=== PATIENT | female | born 1935 | race Caucasian/White ===

== ENCOUNTER 2016-06-13 07:06 | Inpatient (IN) | payer MEDICARE, OTHER ==
[~2016-06-13] VITALS: Ht 170.2 cm; Wt 95.3 kg
[2016-06-13] MEDS ORDERED: NITROGLYCERIN PACKET 1 GM PACKET ONE (07:25)
[2016-06-13] MEDS ORDERED: NITROGLYCERIN PACKET 1 GM PACKET TD ONE (07:30)
[2016-06-13 08:35] LABS: BASOPHILS % (AUTO) 0.3 % (0.0-2.0); DIFF TOTAL % 100 %; EOSINOPHILS # (AUTO) 0.2 /CMM (0.0-0.7); EOSINOPHILS % (AUTO) 1.4 % (0.0-6.0); HEMATOCRIT 32 % (33-45); HEMOGLOBIN 10.7 g/dL (11.5-14.8); LYMPHOCYTES % (AUTO) 30.6 % (20.0-44.0); MEAN CORPUSCULAR HEMOGLOBIN 33 PG (26.0-33.0); MEAN CORPUSCULAR HGB CONC 34 g/dl (31.0-36.0); MEAN CORPUSCULAR VOLUME 98 fL (82-100); MONOCYTES % (AUTO) 7.4 % (2.0-12.0); NEUTROPHILS # (AUTO) 7.8 /CMM (1.8-8.9); NEUTROPHILS % (AUTO) 60.3 % (43.0-81.0); PLATELET COUNT (AUTO) 175 /CMM (150-450); RED BLOOD CELL COUNT(AUTO) 3.28 MIL/uL (4.0-5.2)
[2016-06-13 08:44] LABS: CALCIUM, SERUM 9.9 mg/dL (8.5-10.1); CREATININE 1.3 mg/dL (0.6-1.3); POTASSIUM 4.5 mmol/L (3.5-5.1)
[2016-06-13 08:52] LABS: INR 1.01 (0.87-1.13); PROTHROMBIN TIME 10.9 SECS (9.5-12.7)
[2016-06-13 08:54] LABS: TROPONIN I 0.092 ng/mL (0.00-0.056)
[2016-06-13] MEDS ORDERED: LINA145C PO (09:45)
[2016-06-13] MEDS ORDERED: DILT240T12 PO (09:45)
[2016-06-13] MEDS ORDERED: ATOR40TA PO (09:45)
[2016-06-13] MEDS ORDERED: LORA1TAB82 PO (09:45)
[2016-06-13] MEDS ORDERED: ESOM40CA PO (09:45)
[2016-06-13] MEDS ORDERED: SITA50TA PO (09:45)
[2016-06-13] MEDS ORDERED: VALS160T24 PO (09:45)
[2016-06-13] MEDS ORDERED: ISOS5TAB3 PO (09:45)
[2016-06-13] MEDS ORDERED: NATE120T6 PO (09:45)
[2016-06-13] MEDS ORDERED: FOLI1TAB16 PO (09:45)
[2016-06-13] MEDS ORDERED: ONDANSETRON HCL/PF 4 MG/2 ML VIAL IVP PRN (10:00)
[2016-06-13] MEDS ORDERED: MAG HYDROX/AL HYDROX/SIMETH 30 ML UDC PO PRN (10:00)
[2016-06-13] MEDS ORDERED: HYDROCODONE/APAP 5/325MG 1 EACH TABLET PO PRN (10:00)
[2016-06-13] MEDS ORDERED: MAGNESIUM HYDROXIDE 30 ML UDC PO PRN (10:00)
[2016-06-13] MEDS ORDERED: ZOLPIDEM TARTRATE 5 MG TABLET PO PRN (10:00)
[2016-06-13] MEDS ORDERED: Z GUARD REMEDY 2 OZ OINT TP PRN (10:00)
[2016-06-13] MEDS ORDERED: MORPHINE SULFATE INJ 2 MG/ML DISP.SYRIN IV PRN (10:00)
[2016-06-13 10:13] LABS: ALBUMIN 3.8 g/dL (3.4-5.0); BILIRUBIN,DIRECT 0.1 mg/dL (0.0-0.2); BILIRUBIN,TOTAL 0.4 mg/dL (0.2-1.0); INDIRECT BILIRUBIN 0.3 mg/dL (0.0-1.1); TOTAL PROTEIN, SERUM 8.8 g/dL (6.4-8.2)
[2016-06-13 11:00] VITALS: BP 155/73
[2016-06-13] MEDS ORDERED: DEXTROSE 50%-WATER 50 ML DISP.SYRIN IV PRN (18:30)
[2016-06-13 20:00] VITALS: BP 129/53
[2016-06-13 20:17] VITALS: BP 129/65
[2016-06-13] MEDS ORDERED: ASPIRIN 81 MG TAB.CHEW PO ONE (21:30)
[2016-06-13] MEDS ORDERED: ISOSORBIDE DINITRATE (5MG) 5 MG TABLET PO PRN (22:00)
[2016-06-13] MEDS: BLOOD SUGAR DIAGNOSTIC 1 EACH STRIP IN SCH (22:06)
[2016-06-13] MEDS ORDERED: ATORVASTATIN 40 MG TABLET ONE (22:13)
[2016-06-13] MEDS ORDERED: ASPIRIN 81 MG TAB.CHEW ONE (22:14)
[2016-06-13] MEDS ORDERED: ENOXAPARIN SODIUM 100 MG/ML DISP.SYRIN SQ ONE (22:14)
[2016-06-13] MEDS ORDERED: METOPROLOL TARTRATE 50 MG TABLET ONE (22:14)
[2016-06-13] MEDS: METOPROLOL TARTRATE 50 MG TABLET PO SCH (22:17)
[2016-06-13] MEDS: ATORVASTATIN 40 MG TABLET PO SCH (22:17)
[2016-06-13] MEDS: ENOXAPARIN SODIUM 100 MG/ML DISP.SYRIN SQ SCH (22:18)
[2016-06-13 23:51] VITALS: BP 116/54
[2016-06-14 04:26] VITALS: BP 142/72
[2016-06-14] MEDS: BLOOD SUGAR DIAGNOSTIC 1 EACH STRIP IN SCH ×4 (06:56→22:43)
[2016-06-14 07:24] LABS: CALCIUM, SERUM 9.2 mg/dL (8.5-10.1); CREATININE 1.3 mg/dL (0.6-1.3); PHOSPHORUS 3.5 mg/dL (2.5-4.9); POTASSIUM 4.2 mmol/L (3.5-5.1)
[2016-06-14 07:27] LABS: BASOPHILS # (AUTO) 0.1 /CMM (0.0-0.2); BASOPHILS % (AUTO) 0.5 % (0.0-2.0); DIFF TOTAL % 100 %; EOSINOPHILS # (AUTO) 0.1 /CMM (0.0-0.7); EOSINOPHILS % (AUTO) 1.1 % (0.0-6.0); HEMATOCRIT 30 % (33-45); HEMOGLOBIN 10.1 g/dL (11.5-14.8); LYMPHOCYTES # (AUTO) 5.3 /CMM (0.8-4.8); LYMPHOCYTES % (AUTO) 42.4 % (20.0-44.0); MEAN CORPUSCULAR HEMOGLOBIN 33 PG (26.0-33.0); MEAN CORPUSCULAR HGB CONC 34 g/dl (31.0-36.0); MEAN CORPUSCULAR VOLUME 97 fL (82-100); MONOCYTES # (AUTO) 1.1 /CMM (0.1-1.30); MONOCYTES % (AUTO) 8.5 % (2.0-12.0); NEUTROPHILS # (AUTO) 5.9 /CMM (1.8-8.9); NEUTROPHILS % (AUTO) 47.5 % (43.0-81.0); PLATELET COUNT (AUTO) 156 /CMM (150-450); RED BLOOD CELL COUNT(AUTO) 3.08 MIL/uL (4.0-5.2); WHITE BLOOD COUNT (AUTO) 12.4 K/uL (4.3-11.0)
[2016-06-14 08:00] VITALS: BP 151/86
[2016-06-14] MEDS ORDERED: ISOSORBIDE DINITRATE (5MG) 5 MG TABLET PO PRN (08:00)
[2016-06-14] MEDS: ASPIRIN 325 MG TABLET PO SCH (08:17)
[2016-06-14] MEDS: FOLIC ACID 1 MG TABLET PO SCH (08:17)
[2016-06-14] MEDS: PANTOPRAZOLE 40 MG TABLET.DR PO SCH (08:17)
[2016-06-14] MEDS: METOPROLOL TARTRATE 50 MG TABLET PO SCH ×2 (08:17→21:00)
[2016-06-14] MEDS: ENOXAPARIN SODIUM 100 MG/ML DISP.SYRIN SQ SCH ×2 (08:18→21:29)
[2016-06-14] MEDS: ACETAMINOPHEN 325 MG TABLET PO PRN (15:37)
[2016-06-14 16:00] VITALS: BP 146/74
[2016-06-14] MEDS ORDERED: NITROGLYCERIN 0.4 MG/TAB BOTTLE SL PRN (16:00)
[2016-06-14] MEDS: TRAMADOL HCL 50 MG TABLET PO PRN (16:00)
[2016-06-14] MEDS: NITROGLYCERIN 0.4 MG/TAB BOTTLE SL PRN ×2 (16:43→18:08)
[2016-06-14] MEDS: INSULIN REGULAR, HUMAN 100 UNIT/ML 3 ML VIAL SQ PRN (17:37)
[2016-06-14] MEDS: ISOSORBIDE MONONITRATE (30MG) 30 MG TAB.SR.24H PO SCH (18:41)
[2016-06-14 20:00] VITALS: BP 99/55
[2016-06-14 20:36] VITALS: BP 99/55
[2016-06-14] MEDS: ATORVASTATIN 40 MG TABLET PO SCH (21:28)
[2016-06-14] MEDS ORDERED: DILTIAZEM HCL CD 240 MG PO SCH (22:00)
[2016-06-15] MEDS: NITROGLYCERIN 0.4 MG/TAB BOTTLE SL PRN ×2 (03:32→19:43)
[2016-06-15] MEDS: TRAMADOL HCL 50 MG TABLET PO PRN (03:36)
[2016-06-15] MEDS: LORAZEPAM 1 MG TABLET PO PRN (05:17)
[2016-06-15] MEDS: BLOOD SUGAR DIAGNOSTIC 1 EACH STRIP IN SCH ×4 (06:00→21:33)
[2016-06-15] MEDS: INSULIN REGULAR, HUMAN 100 UNIT/ML 3 ML VIAL SQ PRN (06:07)
[2016-06-15 06:39] LABS: BASOPHILS % (AUTO) 0.4 % (0.0-2.0); DIFF TOTAL % 100 %; EOSINOPHILS # (AUTO) 0.1 /CMM (0.0-0.7); EOSINOPHILS % (AUTO) 0.9 % (0.0-6.0); HEMATOCRIT 29 % (33-45); HEMOGLOBIN 9.8 g/dL (11.5-14.8); LYMPHOCYTES # (AUTO) 3.9 /CMM (0.8-4.8); LYMPHOCYTES % (AUTO) 35.3 % (20.0-44.0); MEAN CORPUSCULAR HEMOGLOBIN 33 PG (26.0-33.0); MEAN CORPUSCULAR HGB CONC 34 g/dl (31.0-36.0); MEAN CORPUSCULAR VOLUME 98 fL (82-100); MONOCYTES % (AUTO) 8.6 % (2.0-12.0); NEUTROPHILS # (AUTO) 6.1 /CMM (1.8-8.9); NEUTROPHILS % (AUTO) 54.8 % (43.0-81.0); PLATELET COUNT (AUTO) 159 /CMM (150-450); RED BLOOD CELL COUNT(AUTO) 2.96 MIL/uL (4.0-5.2); WHITE BLOOD COUNT (AUTO) 11.1 K/uL (4.3-11.0)
[2016-06-15 06:53] LABS: CREATININE 1.4 mg/dL (0.6-1.3); POTASSIUM 4.5 mmol/L (3.5-5.1)
[2016-06-15 08:00] VITALS: BP 133/58
[2016-06-15] MEDS: ENOXAPARIN SODIUM 100 MG/ML DISP.SYRIN SQ SCH (08:59)
[2016-06-15] MEDS: PANTOPRAZOLE 40 MG TABLET.DR PO SCH (08:59)
[2016-06-15] MEDS: ASPIRIN 325 MG TABLET PO SCH (08:59)
[2016-06-15] MEDS ORDERED: ATORVASTATIN 40 MG TABLET PO SCH (09:00)
[2016-06-15] MEDS: FOLIC ACID 1 MG TABLET PO SCH (09:00)
[2016-06-15] MEDS: METOPROLOL TARTRATE 50 MG TABLET PO SCH ×2 (09:01→21:20)
[2016-06-15 09:16] VITALS: BP 133/58
[2016-06-15] MEDS: ISOSORBIDE MONONITRATE (30MG) 30 MG TAB.SR.24H PO SCH (12:19)
[2016-06-15] MEDS: METHOCARBAMOL (750MG) 750 MG TABLET PO PRN (18:28)
[2016-06-15 20:00] VITALS: BP 125/54
[2016-06-15] MEDS: ATORVASTATIN 40 MG TABLET PO SCH (21:25)
[2016-06-16] MEDS: LORAZEPAM 1 MG TABLET PO PRN ×2 (00:02→20:32)
[2016-06-16] MEDS: BLOOD SUGAR DIAGNOSTIC 1 EACH STRIP IN SCH ×4 (06:10→23:25)
[2016-06-16 06:45] LABS: BASOPHILS % (AUTO) 0.3 % (0.0-2.0); DIFF TOTAL % 100 %; EOSINOPHILS # (AUTO) 0.1 /CMM (0.0-0.7); EOSINOPHILS % (AUTO) 0.4 % (0.0-6.0); HEMATOCRIT 29 % (33-45); HEMOGLOBIN 9.7 g/dL (11.5-14.8); LYMPHOCYTES # (AUTO) 4.1 /CMM (0.8-4.8); LYMPHOCYTES % (AUTO) 30.6 % (20.0-44.0); MEAN CORPUSCULAR HEMOGLOBIN 33 PG (26.0-33.0); MEAN CORPUSCULAR HGB CONC 34 g/dl (31.0-36.0); MEAN CORPUSCULAR VOLUME 98 fL (82-100); MONOCYTES # (AUTO) 1.3 /CMM (0.1-1.30); MONOCYTES % (AUTO) 9.8 % (2.0-12.0); NEUTROPHILS # (AUTO) 7.9 /CMM (1.8-8.9); NEUTROPHILS % (AUTO) 58.9 % (43.0-81.0); PLATELET COUNT (AUTO) 141 /CMM (150-450); RED BLOOD CELL COUNT(AUTO) 2.94 MIL/uL (4.0-5.2); WHITE BLOOD COUNT (AUTO) 13.4 K/uL (4.3-11.0)
[2016-06-16 07:02] LABS: CREATININE 1.3 mg/dL (0.6-1.3); POTASSIUM 4.3 mmol/L (3.5-5.1)
[2016-06-16 07:33] LABS: TROPONIN I 5.793 ng/mL (0.00-0.056)
[2016-06-16 08:00] VITALS: BP 122/65
[2016-06-16] MEDS: METOPROLOL TARTRATE 50 MG TABLET PO SCH ×2 (09:22→23:27)
[2016-06-16] MEDS: FOLIC ACID 1 MG TABLET PO SCH (09:23)
[2016-06-16] MEDS: PANTOPRAZOLE 40 MG TABLET.DR PO SCH (09:23)
[2016-06-16] MEDS: ASPIRIN 325 MG TABLET PO SCH (09:23)
[2016-06-16] MEDS: ENOXAPARIN SODIUM 40 MG/0.4 ML DISP.SYRIN SQ SCH (09:24)
[2016-06-16] MEDS: ISOSORBIDE MONONITRATE (30MG) 30 MG TAB.SR.24H PO SCH (10:53)
[2016-06-16] MEDS ORDERED: TICAGRELOR 90 MG TABLET PO ONE (15:30)
[2016-06-16 16:00] VITALS: BP 95/34
[2016-06-16] MEDS ORDERED: LINZESS PO PRN (17:30)
[2016-06-16 20:00] VITALS: BP 121/47
[2016-06-16] MEDS: ATORVASTATIN 40 MG TABLET PO SCH (23:22)
[2016-06-17] VITALS (9 sets, daily range): BP systolic 121–153; BP diastolic 62–104
[2016-06-17 05:31] LABS: BASOPHILS % (AUTO) 0.3 % (0.0-2.0); DIFF TOTAL % 100 %; EOSINOPHILS # (AUTO) 0.1 /CMM (0.0-0.7); EOSINOPHILS % (AUTO) 0.4 % (0.0-6.0); HEMATOCRIT 27 % (33-45); HEMOGLOBIN 9.3 g/dL (11.5-14.8); MEAN CORPUSCULAR HEMOGLOBIN 33 PG (26.0-33.0); MEAN CORPUSCULAR HGB CONC 34 g/dl (31.0-36.0); MEAN CORPUSCULAR VOLUME 97 fL (82-100); MONOCYTES # (AUTO) 1.4 /CMM (0.1-1.30); MONOCYTES % (AUTO) 10.5 % (2.0-12.0); NEUTROPHILS # (AUTO) 7.5 /CMM (1.8-8.9); NEUTROPHILS % (AUTO) 57.8 % (43.0-81.0); PLATELET COUNT (AUTO) 140 /CMM (150-450); RED BLOOD CELL COUNT(AUTO) 2.84 MIL/uL (4.0-5.2)
[2016-06-17 05:42] LABS: CALCIUM, SERUM 9.1 mg/dL (8.5-10.1); CREATININE 1.4 mg/dL (0.6-1.3); POTASSIUM 4.2 mmol/L (3.5-5.1)
[2016-06-17 05:50] LABS: TROPONIN I 5.992 ng/mL (0.00-0.056)
[2016-06-17] MEDS: BLOOD SUGAR DIAGNOSTIC 1 EACH STRIP IN SCH ×4 (07:03→21:33)
[2016-06-17] MEDS: ASPIRIN EC 81 MG TABLET.DR PO SCH (08:35)
[2016-06-17] MEDS: PANTOPRAZOLE 40 MG TABLET.DR PO SCH (08:36)
[2016-06-17] MEDS: FOLIC ACID 1 MG TABLET PO SCH (08:36)
[2016-06-17] MEDS: ENOXAPARIN SODIUM 40 MG/0.4 ML DISP.SYRIN SQ SCH (08:38)
[2016-06-17] MEDS: TRAMADOL HCL 50 MG TABLET PO PRN (08:39)
[2016-06-17] MEDS: NITROGLYCERIN 0.4 MG/TAB BOTTLE SL PRN ×4 (08:42→16:36)
[2016-06-17] MEDS: TICAGRELOR 90 MG TABLET PO SCH ×2 (09:12→16:36)
[2016-06-17] MEDS: ISOSORBIDE MONONITRATE (30MG) 30 MG TAB.SR.24H PO SCH (09:41)
[2016-06-17] MEDS: METOPROLOL TARTRATE 50 MG TABLET PO SCH ×2 (09:42→21:28)
[2016-06-17] MEDS: INSULIN REGULAR, HUMAN 100 UNIT/ML 3 ML VIAL SQ PRN ×2 (11:40→17:07)
[2016-06-17] MEDS: METHOCARBAMOL (750MG) 750 MG TABLET PO PRN (16:36)
[2016-06-17] MEDS: ATORVASTATIN 40 MG TABLET PO SCH (21:29)
[2016-06-18] VITALS (8 sets, daily range): BP systolic 117–137; BP diastolic 31–74
[2016-06-18] MEDS: LORAZEPAM 1 MG TABLET PO PRN ×2 (00:54→18:37)
[2016-06-18] MEDS: NITROGLYCERIN 0.4 MG/TAB BOTTLE SL PRN ×2 (00:55→16:18)
[2016-06-18] MEDS: BLOOD SUGAR DIAGNOSTIC 1 EACH STRIP IN SCH ×4 (07:30→22:05)
[2016-06-18 07:48] LABS: BASOPHILS # (AUTO) 0.1 /CMM (0.0-0.2); BASOPHILS % (AUTO) 0.6 % (0.0-2.0); DIFF TOTAL % 100 %; EOSINOPHILS # (AUTO) 0.1 /CMM (0.0-0.7); EOSINOPHILS % (AUTO) 0.6 % (0.0-6.0); HEMATOCRIT 27 % (33-45); HEMOGLOBIN 9.3 g/dL (11.5-14.8); LYMPHOCYTES # (AUTO) 4.2 /CMM (0.8-4.8); LYMPHOCYTES % (AUTO) 34.2 % (20.0-44.0); MEAN CORPUSCULAR HEMOGLOBIN 33 PG (26.0-33.0); MEAN CORPUSCULAR HGB CONC 34 g/dl (31.0-36.0); MEAN CORPUSCULAR VOLUME 96 fL (82-100); MONOCYTES # (AUTO) 1.3 /CMM (0.1-1.30); MONOCYTES % (AUTO) 10.3 % (2.0-12.0); NEUTROPHILS # (AUTO) 6.6 /CMM (1.8-8.9); NEUTROPHILS % (AUTO) 54.3 % (43.0-81.0); PLATELET COUNT (AUTO) 135 /CMM (150-450); RED BLOOD CELL COUNT(AUTO) 2.83 MIL/uL (4.0-5.2); WHITE BLOOD COUNT (AUTO) 12.2 K/uL (4.3-11.0)
[2016-06-18 08:10] LABS: CALCIUM, SERUM 8.8 mg/dL (8.5-10.1); CREATININE 1.4 mg/dL (0.6-1.3)
[2016-06-18] MEDS: TICAGRELOR 90 MG TABLET PO SCH ×2 (08:40→16:19)
[2016-06-18] MEDS: ISOSORBIDE MONONITRATE (30MG) 30 MG TAB.SR.24H PO SCH (08:40)
[2016-06-18] MEDS: FOLIC ACID 1 MG TABLET PO SCH (08:41)
[2016-06-18] MEDS: ASPIRIN EC 81 MG TABLET.DR PO SCH (08:41)
[2016-06-18] MEDS: METOPROLOL TARTRATE 50 MG TABLET PO SCH ×2 (08:41→21:00)
[2016-06-18] MEDS: PANTOPRAZOLE 40 MG TABLET.DR PO SCH (08:41)
[2016-06-18] MEDS: ENOXAPARIN SODIUM 40 MG/0.4 ML DISP.SYRIN SQ SCH (08:52)
[2016-06-18] MEDS ORDERED: PETROLATUM,WHITE PACKET 5 GM PACKET TP PRN (09:00)
[2016-06-18] MEDS: METHOCARBAMOL (750MG) 750 MG TABLET PO PRN ×2 (09:26→16:17)
[2016-06-18] MEDS: INSULIN REGULAR, HUMAN 100 UNIT/ML 3 ML VIAL SQ PRN ×2 (11:37→17:10)
[2016-06-18] MEDS: ATORVASTATIN 40 MG TABLET PO SCH (22:03)
[2016-06-19] MEDS: BLOOD SUGAR DIAGNOSTIC 1 EACH STRIP IN SCH ×4 (05:38→22:03)
[2016-06-19] MEDS: NITROGLYCERIN 0.4 MG/TAB BOTTLE SL PRN ×2 (05:57→09:00)
[2016-06-19] MEDS: METHOCARBAMOL (750MG) 750 MG TABLET PO PRN ×3 (06:04→18:54)
[2016-06-19 06:37] LABS: BASOPHILS # (AUTO) 0.1 /CMM (0.0-0.2); BASOPHILS % (AUTO) 0.5 % (0.0-2.0); DIFF TOTAL % 100 %; EOSINOPHILS # (AUTO) 0.1 /CMM (0.0-0.7); EOSINOPHILS % (AUTO) 0.8 % (0.0-6.0); HEMATOCRIT 28 % (33-45); HEMOGLOBIN 9.4 g/dL (11.5-14.8); LYMPHOCYTES # (AUTO) 4.8 /CMM (0.8-4.8); LYMPHOCYTES % (AUTO) 36.4 % (20.0-44.0); MEAN CORPUSCULAR HEMOGLOBIN 33 PG (26.0-33.0); MEAN CORPUSCULAR HGB CONC 34 g/dl (31.0-36.0); MEAN CORPUSCULAR VOLUME 97 fL (82-100); MONOCYTES # (AUTO) 1.2 /CMM (0.1-1.30); MONOCYTES % (AUTO) 9.3 % (2.0-12.0); PLATELET COUNT (AUTO) 142 /CMM (150-450); RED BLOOD CELL COUNT(AUTO) 2.84 MIL/uL (4.0-5.2); WHITE BLOOD COUNT (AUTO) 13.2 K/uL (4.3-11.0)
[2016-06-19 07:12] LABS: CREATININE 1.3 mg/dL (0.6-1.3); POTASSIUM 3.9 mmol/L (3.5-5.1)
[2016-06-19 07:32] LABS: TROPONIN I 3.744 ng/mL (0.00-0.056)
[2016-06-19 07:55] VITALS: BP 136/54
[2016-06-19 08:00] VITALS: BP 136/54
[2016-06-19] MEDS: TICAGRELOR 90 MG TABLET PO SCH ×2 (08:47→17:11)
[2016-06-19] MEDS: FOLIC ACID 1 MG TABLET PO SCH (08:47)
[2016-06-19] MEDS: PANTOPRAZOLE 40 MG TABLET.DR PO SCH (08:47)
[2016-06-19] MEDS: ASPIRIN EC 81 MG TABLET.DR PO SCH (08:47)
[2016-06-19] MEDS: ISOSORBIDE MONONITRATE (30MG) 30 MG TAB.SR.24H PO SCH (08:59)
[2016-06-19] MEDS: METOPROLOL TARTRATE 50 MG TABLET PO SCH ×2 (09:00→21:53)
[2016-06-19] MEDS: ENOXAPARIN SODIUM 40 MG/0.4 ML DISP.SYRIN SQ SCH (09:01)
[2016-06-19] MEDS: INSULIN REGULAR, HUMAN 100 UNIT/ML 3 ML VIAL SQ PRN ×2 (11:45→17:43)
[2016-06-19 16:00] VITALS: BP 128/50
[2016-06-19 20:00] VITALS: BP 148/54
[2016-06-19] MEDS: LORAZEPAM 1 MG TABLET PO PRN (21:51)
[2016-06-19] MEDS: ATORVASTATIN 40 MG TABLET PO SCH (21:51)
[2016-06-20] MEDS: BLOOD SUGAR DIAGNOSTIC 1 EACH STRIP IN SCH ×4 (05:56→21:50)
[2016-06-20 06:27] LABS: CREATININE 1.4 mg/dL (0.6-1.3)
[2016-06-20 06:38] LABS: BASOPHILS % (AUTO) 0.3 % (0.0-2.0); DIFF TOTAL % 100 %; EOSINOPHILS # (AUTO) 0.1 /CMM (0.0-0.7); EOSINOPHILS % (AUTO) 0.6 % (0.0-6.0); HEMATOCRIT 28 % (33-45); HEMOGLOBIN 9.4 g/dL (11.5-14.8); LYMPHOCYTES # (AUTO) 4.7 /CMM (0.8-4.8); LYMPHOCYTES % (AUTO) 34.3 % (20.0-44.0); MEAN CORPUSCULAR HEMOGLOBIN 33 PG (26.0-33.0); MEAN CORPUSCULAR HGB CONC 34 g/dl (31.0-36.0); MEAN CORPUSCULAR VOLUME 98 fL (82-100); MONOCYTES % (AUTO) 7.6 % (2.0-12.0); NEUTROPHILS # (AUTO) 7.9 /CMM (1.8-8.9); NEUTROPHILS % (AUTO) 57.2 % (43.0-81.0); PLATELET COUNT (AUTO) 149 /CMM (150-450); RED BLOOD CELL COUNT(AUTO) 2.84 MIL/uL (4.0-5.2); WHITE BLOOD COUNT (AUTO) 13.8 K/uL (4.3-11.0)
[2016-06-20 06:46] LABS: TROPONIN I 2.185 ng/mL (0.00-0.056)
[2016-06-20] MEDS: METHOCARBAMOL (750MG) 750 MG TABLET PO PRN ×3 (06:46→18:22)
[2016-06-20] MEDS: NITROGLYCERIN 0.4 MG/TAB BOTTLE SL PRN ×3 (06:48→15:01)
[2016-06-20 08:00] VITALS: BP_SYST 121; BP_DIAS 60; BP_DIAS 65
[2016-06-20] MEDS: METOPROLOL TARTRATE 50 MG TABLET PO SCH ×2 (08:13→21:00)
[2016-06-20] MEDS: FOLIC ACID 1 MG TABLET PO SCH (08:13)
[2016-06-20] MEDS: PANTOPRAZOLE 40 MG TABLET.DR PO SCH (08:13)
[2016-06-20] MEDS: ISOSORBIDE MONONITRATE (30MG) 30 MG TAB.SR.24H PO SCH (08:13)
[2016-06-20] MEDS: ASPIRIN EC 81 MG TABLET.DR PO SCH (08:13)
[2016-06-20] MEDS: TICAGRELOR 90 MG TABLET PO SCH ×2 (08:13→17:07)
[2016-06-20] MEDS: ENOXAPARIN SODIUM 40 MG/0.4 ML DISP.SYRIN SQ SCH (08:27)
[2016-06-20 09:01] VITALS: BP 95/43
[2016-06-20] MEDS ORDERED: IV NS 0.9% 1,000 ML IV PRN (10:31)
[2016-06-20 15:06] VITALS: BP 104/51
[2016-06-20] MEDS: ACETAMINOPHEN 325 MG TABLET PO PRN (15:12)
[2016-06-20 16:00] VITALS: BP 118/70
[2016-06-20] MEDS: INSULIN REGULAR, HUMAN 100 UNIT/ML 3 ML VIAL SQ PRN ×2 (17:25→21:55)
[2016-06-20 20:35] VITALS: BP 102/50
[2016-06-20] MEDS: ATORVASTATIN 40 MG TABLET PO SCH (21:51)
[2016-06-20] MEDS: LORAZEPAM 1 MG TABLET PO PRN (21:51)
[2016-06-20 22:00] VITALS: BP 104/58
[2016-06-21 00:09] VITALS: BP 127/54
[2016-06-21] MEDS: METHOCARBAMOL (750MG) 750 MG TABLET PO PRN ×3 (03:55→16:11)
[2016-06-21] MEDS: NITROGLYCERIN 0.4 MG/TAB BOTTLE SL PRN ×6 (04:02→08:57)
[2016-06-21 04:21] VITALS: BP 118/57
[2016-06-21] MEDS: BLOOD SUGAR DIAGNOSTIC 1 EACH STRIP IN SCH ×3 (06:42→17:19)
[2016-06-21 06:45] VITALS: BP 133/54
[2016-06-21] MEDS: PANTOPRAZOLE 40 MG TABLET.DR PO SCH (07:30)
[2016-06-21 08:00] VITALS: BP 131/54
[2016-06-21] MEDS: ASPIRIN EC 81 MG TABLET.DR PO SCH (08:40)
[2016-06-21] MEDS: FOLIC ACID 1 MG TABLET PO SCH (08:40)
[2016-06-21] MEDS: ISOSORBIDE MONONITRATE (30MG) 30 MG TAB.SR.24H PO SCH (08:41)
[2016-06-21] MEDS: TICAGRELOR 90 MG TABLET PO SCH ×2 (08:42→16:53)
[2016-06-21] MEDS: METOPROLOL TARTRATE 50 MG TABLET PO SCH (08:42)
[2016-06-21] MEDS: ENOXAPARIN SODIUM 40 MG/0.4 ML DISP.SYRIN SQ SCH (09:23)
[2016-06-21 12:00] VITALS: BP 129/76
[2016-06-21 16:00] VITALS: BP 130/67
== END 2016-06-21 17:35 | disposition short-term general hospital (02) | DRG 281 ==
LOC: ER 07:35 → TELE 11:10 → MED 11:59 → TELE 12:00 → MED 06-15 06:38 → TELE 06-16 08:49 → MED 06-18 09:27 → TELE 06-20 17:37
PROVIDERS: ADMIT Internal Medicine; ATTEND Internal Medicine
DX: I21.4 Non-ST elevation (NSTEMI) myocardial infarction (principal); I50.32 Chronic diastolic (congestive) heart failure; I13.0 Hypertensive heart and chronic kidney disease with heart failure and stage 1 through stage 4 chronic kidney disease, or unspecified chronic kidney disease; Q60.0 Renal agenesis, unilateral; E11.22 Type 2 diabetes mellitus with diabetic chronic kidney disease; I48.0 Paroxysmal atrial fibrillation; D63.8 Anemia in other chronic diseases classified elsewhere; D72.829 Elevated white blood cell count, unspecified; E66.9 Obesity, unspecified; E78.5 Hyperlipidemia, unspecified; I25.110 Atherosclerotic heart disease of native coronary artery with unstable angina pectoris; I25.2 Old myocardial infarction; N18.3 Chronic kidney disease, stage 3 (moderate); K21.9 Gastro-esophageal reflux disease without esophagitis; Z79.02 Long term (current) use of antithrombotics/antiplatelets; Z98.61 Coronary angioplasty status; Z68.32 Body mass index [BMI] 32.0-32.9, adult; Z88.8 Allergy status to other drugs, medicaments and biological substances
CPT/HCPCS: 36415; 71010-TC; 80048-TC; 80061-TC; 80076-TC; 82150-TC; 82962-TC; 83735-TC; 84100-TC; 84484-TC; 85025-TC; 85730-TC; 87040-TC; 87081-TC; 93307-TC; 94799-TC; 97001-TC; A4606; J1650; J1815; Z7610

== ENCOUNTER 2016-10-05 06:44 | Emergency (ER) | payer MEDICARE, OTHER ==
[~2016-10-05] VITALS: Ht 167.6 cm; Wt 90.7 kg
[~2016-10-05 06:44] MED LIST: ATOR40TA PO; DILT240T12 PO; ESOM40CA PO; FOLI1TAB16 PO; ISOS5TAB3 PO; LINA145C PO; LORA1TAB82 PO; NATE120T6 PO; SITA50TA PO; VALS160T24 PO
--- NOTE | 2016-10-05 07:00 | NUR ---
81 yo female bb ra from home. pt is alert x 3, c/o glf. pt states she was showering when she fell, thinks she blacked out for a minute. ems was called by son, skin warm and dry, rr even and unlabored. pt is in moderate distress. noted lac on forehead. tetanous not up to date, awaiting orders from provider, will conitnue to monitor
[2016-10-05] MEDS ORDERED: ACETAMINOPHEN ES 500 MG TABLET ONE (07:08)
--- NOTE | 2016-10-05 07:08 | NUR ---
20g left hand iv started
[2016-10-05] MEDS ORDERED: TDAP [DIPH/PERTUSSIS/TET] 0.5 ML VIAL IM ONE ×2 (07:09→07:30)
--- NOTE | 2016-10-05 07:18 | NUR ---
PT REFUSED MEDICATION
[2016-10-05] MEDS: LIDOCAINE 1%-EPI 1:100,000 50 ML VIAL IJ ONE ×2 (07:20→07:43)
[2016-10-05] MEDS ORDERED: ACETAMINOPHEN ES 500 MG TABLET PO ONE (07:30)
[2016-10-05] MEDS ORDERED: MORPHINE SULFATE INJ 4 MG/ML DISP.SYRIN ONE (08:48)
[2016-10-05] MEDS ORDERED: oxyCODONE IR immediate release 5 MG CAPSULE PO ONE (09:00)
[2016-10-05] MEDS ORDERED: MORPHINE SULFATE INJ 2 MG/ML DISP.SYRIN IM ONE (09:00)
[2016-10-05] MEDS ORDERED: TRAMADOL HCL 50 MG TABLET ONE (09:05)
[2016-10-05] MEDS ORDERED: TRAMADOL HCL 50 MG TABLET PO ONE (09:30)
[2016-10-05 09:31] VITALS: BP 130/80
--- NOTE | 2016-10-05 09:31 | NUR ---
Patient discharged to home in stable condition. Written and verbal after care instructions given. Patient verbalizes understanding of instruction.
== END 2016-10-05 09:35 | disposition home or self-care (01) ==
LOC: ER 06:46
DX: S42.291A Other displaced fracture of upper end of right humerus, initial encounter for closed fracture (principal); S01.81XA Laceration without foreign body of other part of head, initial encounter; D64.9 Anemia, unspecified; E11.9 Type 2 diabetes mellitus without complications; I10 Essential (primary) hypertension; F41.9 Anxiety disorder, unspecified; I48.91 Unspecified atrial fibrillation; Z95.5 Presence of coronary angioplasty implant and graft; Z88.8 Allergy status to other drugs, medicaments and biological substances; W18.2XXA Fall in (into) shower or empty bathtub, initial encounter; Y93.E1 Activity, personal bathing and showering; Y92.091 Bathroom in other non-institutional residence as the place of occurrence of the external cause; Y99.8 Other external cause status
CPT/HCPCS: 70450-TC; 72125-TC; 73030-TC; 90715; A4606; A6402; A6403; J2270; J3490; Z7610

== ENCOUNTER 2016-12-07 19:49 | Inpatient (IN) | payer MEDICARE, OTHER ==
[~2016-12-07] VITALS: Ht 152.4 cm; Wt 78.9 kg
--- NOTE | 2016-12-07 20:12 | NUR ---
BIB DAUGHTER, C/O SOB X 2 DAYS WITH PROGRESSIVE NOCTORNAL DYSPNEA DENIEVE FEVER OR CHILLS; C/O BACK PAIN X 1 WEEK. PT AOX3 RR EVEN AND UNLABORED. NO SOB NOTED. PT SPEAKING IN FULL SENTENCES. NAD NOTED. NO NVD AT THIS TIME. PT GOWNED AND PLACED ON MONITOR WAITING FOR MD ORTIZ.
--- NOTE | 2016-12-07 20:17 | NUR ---
DR. THOMPSON AT BEDSIDE FOR EVAL.
--- NOTE | 2016-12-07 20:40 | NUR ---
RADIOLOGY AT BEDSIDE FOR CXR.
--- NOTE | 2016-12-07 20:44 | NUR ---
PT REFUSED IV, RISK AND BENEFITS EXPLAINED X3. PT STRONGLY REFUSED. RN ALEENA AT BEDSIDE.
--- NOTE | 2016-12-07 20:50 | NUR ---
LAB AT BEDSIDE FOR BLOOD DRAW.
[2016-12-07 21:09] LABS: CALCIUM, SERUM 8.9 mg/dL (8.5-10.1); CARBON DIOXIDE 23 mmol/L (21-32); CHLORIDE 104 mmol/L (98-107); CREATININE 1.3 mg/dL (0.6-1.3); GLUCOSE 126 mg/dL (74-106); POTASSIUM 4.3 mmol/L (3.5-5.1); SODIUM SERUM 137 mmol/L (136-145); UREA NITROGEN, BLOOD 27 mg/dL (7-18)
[2016-12-07 21:10] LABS: PROTHROMBIN TIME 10.4 SECS (9.5-12.7)
[2016-12-07 21:15] LABS: BASOPHILS % (AUTO) 0.3 % (0.0-2.0); HEMATOCRIT 24 % (33-45); HEMOGLOBIN 8.2 g/dL (11.5-14.8); LYMPHOCYTES # (AUTO) 4.9 /CMM (0.8-4.8); LYMPHOCYTES % (AUTO) 46.1 % (20.0-44.0); MEAN CORPUSCULAR HEMOGLOBIN 35 PG (26.0-33.0); MEAN CORPUSCULAR HGB CONC 34 g/dl (31.0-36.0); MEAN CORPUSCULAR VOLUME 103 fL (82-100); MONOCYTES # (AUTO) 0.8 /CMM (0.1-1.30); MONOCYTES % (AUTO) 7.2 % (2.0-12.0); NEUTROPHILS % (AUTO) 46.4 % (43.0-81.0); PLATELET COUNT (AUTO) 95 /CMM (150-450); RDW COEFFICIENT OF VARIATION 19.3 (11.5-15.0); RED BLOOD CELL COUNT(AUTO) 2.37 MIL/uL (4.0-5.2); WHITE BLOOD COUNT (AUTO) 10.7 K/uL (4.3-11.0)
[2016-12-07 21:17] LABS: TROPONIN I < 0.017 ng/mL (0.00-0.056)
[2016-12-07 21:22] LABS: ALANINE AMINOTRANSFERASE 18 U/L (12-78); ALBUMIN 3.3 g/dL (3.4-5.0); ALKALINE PHOSPHATASE 86 U/L (46-116); ASPARTATE AMINOTRANSFERASE 19 U/L (15-37); B-TYPE NATRIURETIC PEPTIDE 994 PG/ML (0-125); BILIRUBIN,DIRECT 0.2 mg/dL (0.0-0.2)
--- NOTE | 2016-12-07 21:27 | NUR ---
DR. THOMPSON AT BEDSIDE SPEAKING TO PT REGARDING POC
[2016-12-07] MEDS ORDERED: FUROSEMIDE 20 MG/2 ML VIAL IV ONE (21:30)
--- NOTE | 2016-12-07 21:49 | NUR ---
CALLED [employer] INVESTMENT MANAGER WAS PAGED.
--- NOTE | 2016-12-07 21:50 | NUR ---
DR THOMPSON ON THE PHONE WITH DR COSTA.
--- NOTE | 2016-12-07 21:54 | NUR ---
PT REFUSED IV INSERTION AND IV MEDICATION. RISK AND BENEFITS EXPLAINED X3. PT STRONGLY REFUSED. FAMILY AWARE. DR. THOMPSON AWARE
[2016-12-07 21:55] LABS: BAND % (MANUAL) 10 % (0.0-5.0); LYMPHOCYTES % (MANUAL) 46 % (16-48); MONOCYTES % (MANUAL) 5 % (0-11.0); NEUTROPHILS % (MANUAL) 39 (42-76)
--- NOTE | 2016-12-07 22:00 | NUR ---
PT ASSIGNED TO [facility] 325-1
[2016-12-07] MEDS ORDERED: FUROSEMIDE 40 MG TABLET ONE (22:05)
[2016-12-07 22:30] VITALS: BP 117/53
[2016-12-07] MEDS ORDERED: ACETAMINOPHEN 325 MG TABLET PO PRN (22:30)
[2016-12-07] MEDS ORDERED: HYDROCODONE/APAP 5/325MG 1 EACH TABLET PO PRN (22:30)
[2016-12-07] MEDS ORDERED: MAGNESIUM HYDROXIDE 30 ML UDC PO PRN (22:30)
[2016-12-07] MEDS ORDERED: LORAZEPAM 1 MG TABLET PO PRN (22:30)
[2016-12-07] MEDS ORDERED: ONDANSETRON HCL/PF 4 MG/2 ML VIAL IVP PRN (22:30)
[2016-12-07] MEDS ORDERED: FUROSEMIDE 40 MG TABLET PO ONE (22:30)
[2016-12-07] MEDS ORDERED: ISOSORBIDE DINITRATE (5MG) 5 MG TABLET PO PRN (22:30)
[2016-12-07] MEDS ORDERED: Z GUARD REMEDY 2 OZ OINT TP PRN (22:30)
[2016-12-07] MEDS ORDERED: ZOLPIDEM TARTRATE 5 MG TABLET PO PRN (22:30)
[2016-12-07] MEDS ORDERED: MAG HYDROX/AL HYDROX/SIMETH 30 ML UDC PO PRN (22:30)
--- NOTE | 2016-12-07 22:30 | NUR ---
TOE PULLER NOTES: RECEIVED PT FROM ED AT THIS TIME. PT IS A/OX 4. NO IV SITE FOR PT. AWARE. PT ACCOMPANIED WITH DAUGHTER IN LAW AT BEDSIDE. CALL LIGHT WITHIN PT'S REACH. BED KEPT IN LOW, LOCKED POSITION, AND SIDE RAILS X 2 UP. HOB ELEVATED/ HIGH DELEON'S AT ALL TIMES. WILL CONTINUE TO MONITOR PT.
--- NOTE | 2016-12-07 22:36 | NUR ---
PT TRANSFERED PER ACLS PROTOCOL.
[2016-12-07 22:40] VITALS: BP 117/53
--- NOTE | 2016-12-07 23:00 | NUR ---
PRACTICAL NURSE NOTES: DR. COSTA AT BEDSIDE ANSWERING ALL QUESTIONS/CONCERNS PT AND FAMILY MEMBER HAS. WILL CONTINUE TO MONITOR PT.
[2016-12-08] VITALS: BP 96/48
[2016-12-08] MEDS ORDERED: IPRATROPIUM NEB FS 0.5 MG/2.5 ML AMPUL.NEB NEB PRN
[2016-12-08] MEDS ORDERED: ALBUTEROL FS 2.5 MG/3 ML VIAL.NEB NEB PRN
[2016-12-08] MEDS ORDERED: predniSONE 20 MG TABLET ONE (00:23)
[2016-12-08] MEDS: predniSONE 20 MG TABLET PO SCH ×2 (00:25→09:13)
[2016-12-08] MEDS ORDERED: ALBUTEROL FS 2.5 MG/3 ML VIAL.NEB ONE (02:25)
[2016-12-08] MEDS ORDERED: IPRATROPIUM NEB FS 0.5 MG/2.5 ML AMPUL.NEB ONE (02:25)
[2016-12-08] MEDS ORDERED: ACETAMINOPHEN 325 MG TABLET ONE (02:52)
--- NOTE | 2016-12-08 02:53 | NUR ---
SILICA DRY PRESS HELPER NOTES: PT COMPLAINED OF BACK PAIN AND REQUESTED FOR ACETAMINOPHEN 650MG. WAS ADMINISTERED ACETAMINOPHEN. PT REFUSED NORCO MEDICATION. WILL CONTINUE TO MONITOR PT.
[2016-12-08 03:24] LABS: BASOPHILS % (AUTO) 0.3 % (0.0-2.0); HEMATOCRIT 24 % (33-45); HEMOGLOBIN 8.2 g/dL (11.5-14.8); LYMPHOCYTES # (AUTO) 4.3 /CMM (0.8-4.8); LYMPHOCYTES % (AUTO) 38.9 % (20.0-44.0); MEAN CORPUSCULAR HEMOGLOBIN 35 PG (26.0-33.0); MEAN CORPUSCULAR HGB CONC 34 g/dl (31.0-36.0); MEAN CORPUSCULAR VOLUME 102 fL (82-100); MONOCYTES # (AUTO) 0.5 /CMM (0.1-1.30); MONOCYTES % (AUTO) 4.2 % (2.0-12.0); NEUTROPHILS # (AUTO) 6.2 /CMM (1.8-8.9); NEUTROPHILS % (AUTO) 56.6 % (43.0-81.0); PLATELET COUNT (AUTO) 92 /CMM (150-450); RDW COEFFICIENT OF VARIATION 19.5 (11.5-15.0); RED BLOOD CELL COUNT(AUTO) 2.38 MIL/uL (4.0-5.2)
[2016-12-08 03:37] LABS: CALCIUM, SERUM 8.8 mg/dL (8.5-10.1); CARBON DIOXIDE 22 mmol/L (21-32); CHLORIDE 103 mmol/L (98-107); CREATININE 1.4 mg/dL (0.6-1.3); GLUCOSE 171 mg/dL (74-106); PHOSPHORUS 3.7 mg/dL (2.5-4.9); POTASSIUM 4.3 mmol/L (3.5-5.1); SODIUM SERUM 137 mmol/L (136-145); UREA NITROGEN, BLOOD 27 mg/dL (7-18)
[2016-12-08 03:40] LABS: CHOLESTEROL 117 mg/dL (<200); HDL CHOLESTEROL 41 mg/dL (40-60); LDL 63 mg/dL (0-99); TRIGLYCERIDES 59 mg/dL (30-150)
[2016-12-08 04:00] VITALS: BP 120/56
[2016-12-08 04:04] LABS: BAND % (MANUAL) 2 % (0.0-5.0); LYMPHOCYTES % (MANUAL) 44 % (16-48); MONOCYTES % (MANUAL) 7 % (0-11.0); NEUTROPHILS % (MANUAL) 47 (42-76)
--- NOTE | 2016-12-08 07:25 | NUR ---
FIXED INCOME TRADING VICE PRESIDENT CLOSING NOTES: PT IS ALSO ON TELE BOX AND READING SHOW SR 60S.
--- NOTE | 2016-12-08 07:25 | NUR ---
MACHINE QUILT STUFFER CLOSING NOTES: ALL NEEDS WERE ATTENDED AND ANTICIPATED FOR. PT IS A/OX 4 AND IS AWAKE. NO IV SITE FOR PT. MD AWARE.HOB UPRIGHT AT ALL TIMES AND PT IS ON CONTINUOUS PULSE OX. CALL LIGHT WITHIN PT'S REACH. BED KEPT IN LOW, LOCKED POSITION, AND SIDE RAILS X 2 UP. ENDORSED TO AM NURSE FOR LAURY.
[2016-12-08 08:00] VITALS: BP 156/96
--- NOTE | 2016-12-08 08:00 | NUR ---
ROOFER HELPER VINYL COATING NOTES PATIENT REFUSED ALL MORNING MEDICATIONS EXCEPT PREDNISONE STATES SHE TOOK HER OWN MEDICATIONS FROM HOME. EXPLAINED TO PATIENT THE RISKS OF TAKING MEDICATIONS WITHOUT SUPERVISION. EXPLAINED OF OUT PROTOCOL. STATES SHE KNOWS WHAT SHE IS DOING AND PROMISES WILL NOT TAKE MEDICATIONS WITHOUT NOTIFYING MEDICAL STAFF. PATIENT REFUSED TO GIVE MEDICATIONS. STATES HER SON WILL TAKE IT HOME. NELLY SOUZA MADE AWARE, WILL SPEAK TO PATIENT.
--- NOTE | 2016-12-08 08:00 | NUR ---
JACK SETTER NOTES PATIENT IN BED RESTING NO SOB OR ACUTE DISTRESS NOTED. PATIENT NOTED WITH NO IV ACCESS, STATES SHE PREFERS TO HAVE MIDLINE. AERIAL SURVEY TECHNICIAN NOTIFIED, NELLY SOUZA NOTIFIED ORDERS RECEIVED. BED IN LOW LOCKED POSITION. CALL LIGHT WITHIN REACH. WILL CONTINUE TO MONITOR.
[2016-12-08] MEDS: FOLIC ACID 1 MG TABLET PO SCH ×2 (09:00→09:13)
[2016-12-08] MEDS: FUROSEMIDE 40 MG/4 ML VIAL IV SCH (09:00)
[2016-12-08] MEDS: VALSARTAN 80 MG TABLET PO SCH ×2 (09:00→09:12)
[2016-12-08] MEDS: NATEGLINIDE 60 MG TABLET PO SCH ×3 (09:00→16:29)
[2016-12-08] MEDS ORDERED: LINACLOTIDE 145 MCG PO PRN (09:00)
[2016-12-08] MEDS: LINAGLIPTIN 5 MG TABLET PO SCH ×2 (09:00→09:11)
[2016-12-08] MEDS ORDERED: IV NS 0.9% 500 ML IV ONE ×2 (11:30)
[2016-12-08] MEDS ORDERED: ASPI81TA2 PO (11:49)
[2016-12-08] MEDS ORDERED: TICA90TA PO (11:49)
[2016-12-08 12:00] VITALS: BP 144/89
--- NOTE | 2016-12-08 12:30 | NUR ---
GROUP UNDERWRITER NOTES PATIENT SEEN AND EVALUATED BY DR. GRAF ORDERS NOTED AND CARRIED OUT.
[2016-12-08 16:00] VITALS: BP 148/84
[2016-12-08] MEDS: BLOOD SUGAR DIAGNOSTIC 1 EACH STRIP IN SCH (16:29)
--- NOTE | 2016-12-08 18:00 | NUR ---
MS RN NOTES PATIENT NOTED WITH SOB REPORTS MILD CHEST PAIN. VS CHECKED NOTED TO BE 134/66 HEART RATE 80, RESPIRATION 20. O2 SATURATION 95% STATES FEELING WEAK. PATIENT PLACED ON 2L OF OXYGEN VIA NASAL CANNULA. LUNG SOUNDS ARE CLEAR. BS IS NOTED TO BE 208M AFTER DINNER SHE HAD FROM HOME. PATIENT ALERT, ORIENTED X4. JAZZ SOUZA NOTIFIED ORDERS RECEIVED FOR NITRO. 0.4MG SUBLINGUAL, EKG STAT, OXYGEN 2L VIA NASAL CANNULA, TROP EVERY 6 HOURS 3 ALSO ORDERED CTA. PATIENT REFUSED CTA STATES SHE ALREADY HAD ENOUGH TESTS FOR THE DAY, DESPITE EXPLANATION OF BENEFITS AND RISKS. PATIENT ALSO REFUSED NITRO SUBLINGUAL TABLETS. IAIN SOUZA NOTIFIED. WILL CONTINUE TO MONITOR.
[2016-12-08] MEDS ORDERED: NITROGLYCERIN 0.4 MG/TAB BOTTLE SL PRN (18:30)
--- NOTE | 2016-12-08 18:30 | NUR ---
PIANOS AND ORGANS SALESPERSON NOTES PATIENT STATES SHE FEELS MUCH BETTER STILL REFUSES TESTS. REFUSES NITRO SUBLINGUAL TAB. STATES HER CHEST PAIN IS MUCH BETTER. SHE DOES NOT FEEL SHORT OF BREATH ANYMORE. PATIENT NOTED SITTING IN BED. IN NO DISTRESS. VS WNL. PERIPHERAL IV INTACT PATENT. WILL ENDORSE CARE TO PM SHIFT.
--- NOTE | 2016-12-08 19:00 | NUR ---
SLICE CUTTING MACHINE OPERATOR HELPER NOTES PATIENT NOTED WITH FAMILY. REPORTS SLIGHT SOB. REFUSES CTA. STATES SHE FEELS BETTER.
[2016-12-08 20:00] VITALS: BP 151/67
--- NOTE | 2016-12-08 20:00 | NUR ---
RN NOTES RECEIVED PT AWAKE, ON BED,A/OX3,, SR ON TELE MONITOR, HR-75, DENIES PAIN, NO SOB, CALL LIGHT WITHIN REACH, SIDERAILS UPX2 CONTINUE TO MONITOR
[2016-12-08] MEDS: DILTIAZEM HCL CD 240 MG PO SCH (22:00)
--- NOTE | 2016-12-08 22:00 | NUR ---
RN NOTES PT REFUSED HER CARDIZEM PO AT THIS TIME PT STATED THAT SHE'S TAKING IT IN THE MORNING
[2016-12-09] VITALS (7 sets, daily range): BP systolic 110–134; BP diastolic 42–69
[2016-12-09 06:35] LABS: BASOPHILS % (AUTO) 0.2 % (0.0-2.0); HEMATOCRIT 23 % (33-45); HEMOGLOBIN 7.8 g/dL (11.5-14.8); LYMPHOCYTES # (AUTO) 3.2 /CMM (0.8-4.8); LYMPHOCYTES % (AUTO) 27.2 % (20.0-44.0); MEAN CORPUSCULAR HEMOGLOBIN 35 PG (26.0-33.0); MEAN CORPUSCULAR HGB CONC 34 g/dl (31.0-36.0); MEAN CORPUSCULAR VOLUME 103 fL (82-100); MONOCYTES # (AUTO) 1.2 /CMM (0.1-1.30); MONOCYTES % (AUTO) 10.3 % (2.0-12.0); NEUTROPHILS # (AUTO) 7.3 /CMM (1.8-8.9); NEUTROPHILS % (AUTO) 62.3 % (43.0-81.0); PLATELET COUNT (AUTO) 92 /CMM (150-450); RDW COEFFICIENT OF VARIATION 19.2 (11.5-15.0); RED BLOOD CELL COUNT(AUTO) 2.24 MIL/uL (4.0-5.2); WHITE BLOOD COUNT (AUTO) 11.7 K/uL (4.3-11.0)
--- NOTE | 2016-12-09 06:44 | NUR ---
RN NOTES AWAKE, MORNING CARE RENDERED, DENIES PAIN, NO SOB, CALL LIGHT WITHIN REACH, SIDERAILS UPX2 PT. NEEDS ATTENDED.
[2016-12-09 06:59] LABS: CALCIUM, SERUM 8.4 mg/dL (8.5-10.1); CARBON DIOXIDE 22 mmol/L (21-32); CHLORIDE 106 mmol/L (98-107); CREATININE 1.2 mg/dL (0.6-1.3); GLUCOSE 135 mg/dL (74-106); SODIUM SERUM 141 mmol/L (136-145); UREA NITROGEN, BLOOD 33 mg/dL (7-18)
[2016-12-09 07:09] LABS: IRON, SERUM 101 ug/dl (50-175); TOTAL IRON BINDING CAPACITY 260 ug/dl (250-450)
[2016-12-09 07:11] LABS: FERRITIN 154 ng/mL (8-388)
[2016-12-09] MEDS ORDERED: PANTOPRAZOLE 40 MG TABLET.DR PO PRN (07:30)
--- NOTE | 2016-12-09 07:43 | NUR ---
RN NOTES RECEIVED PT. PT IS STABLE AND AWAKE IN BED. A/O X 4. NO S/S OF DISTRESS OR SOB. NO C/O PAIN FROM PT. TELE MONITOR READING SR WITH 1ST DEGREE AV BLOCK. IV ACCESS LOCATED ON R UPPER ARM, MIDLINE 18G. PT HAS BROUGHT HOME MEDICATIONS, WILL DELIVER TO PHARMACY FOR RECONCILIATION. SAFETY MEASURES IN PLACE. CALL LIGHT WITHIN REACH. WILL CONTINUE TO MONITOR.
[2016-12-09] MEDS: predniSONE 20 MG TABLET PO SCH ×2 (08:28→08:49)
[2016-12-09] MEDS: NATEGLINIDE 60 MG TABLET PO SCH ×3 (08:28→17:00)
[2016-12-09] MEDS: FOLIC ACID 1 MG TABLET PO SCH (08:28)
[2016-12-09] MEDS: FUROSEMIDE 40 MG/4 ML VIAL IV SCH ×2 (08:29→08:49)
[2016-12-09] MEDS: LINAGLIPTIN 5 MG TABLET PO SCH (08:29)
[2016-12-09] MEDS: VALSARTAN 80 MG TABLET PO SCH (08:33)
[2016-12-09] MEDS: BLOOD SUGAR DIAGNOSTIC 1 EACH STRIP IN SCH ×2 (08:48→17:00)
[2016-12-09 08:52] LABS: BAND % (MANUAL) 7 % (0.0-5.0); LYMPHOCYTES % (MANUAL) 25 % (16-48); MONOCYTES % (MANUAL) 7 % (0-11.0); NEUTROPHILS % (MANUAL) 61 (42-76)
[2016-12-09] MEDS ORDERED: ATORVASTATIN 40 MG TABLET PO SCH (09:00)
[2016-12-09] MEDS: ASPIRIN EC 81 MG TABLET.DR PO SCH (14:30)
[2016-12-09] MEDS: FUROSEMIDE 40 MG TABLET PO SCH (14:30)
--- NOTE | 2016-12-09 19:02 | NUR ---
RN CLOSING NOTE PT IN BED AWAKE. A/O X 4. NO S/S OF DISTRESS OR SOB. NO C/O PAIN. ALL PT NEEDS ANTICIPATED AND MET. SAFETY MEASURES IN PLACE. CALL LIGHT WITHIN REACH. WILL ENDORSE TO INDUSTRIAL WORKERS FOR LAURY.
--- NOTE | 2016-12-09 19:20 | NUR ---
MS/RN NOTES RECEIVED PT. LYING IN BED. AWAKE, ALERT AND ORIENTED X4. BREATHING EVEN AND UNLABORED. NO SOB, RESPIRATORY DISTRESS OR COMPLAINTS OF PAIN NOTED AT THIS TIME. PT. WITH RIGHT UPPER ARM MIDLINE PRESENT, PATENT AND INTACT. PER DAYSHIFT NURSE PT. BRILINTA MEDICATION NOT ADMINISTERED AT 1700 STILL AWAITING MEDICATION ARRIVAL FROM PHARMACY. WILL ADMINISTER MEDICATION TO PT. WHEN IT ARRIVES FROM PHARMACY. PT. WITH FAMILY MEMBER PRESENT AT BEDSIDE. BED IN LOWEST POSITION, CALL LIGHT WITHIN REACH, WILL CONTINUE TO MONITOR.
[2016-12-09] MEDS: TICAGRELOR 90 MG TABLET PO SCH (19:36)
[2016-12-09] MEDS: DILTIAZEM HCL CD 240 MG PO SCH (22:00)
--- NOTE | 2016-12-10 06:59 | NUR ---
MS/RN NOTES PT. LYING IN BED RESTING. BREATHING EVEN AND UNLABORED. NO SOB, RESPIRATORY DISTRESS OR COMPLAINTS OF PAIN NOTED AT THIS TIME. PT. WITH RIGHT UPPER ARM MIDLINE PRESENT, PATENT AND INTACT. ALL PT. NEEDS MET. BED IN LOWEST POSITION, CALL LIGHT WITHIN REACH, WILL ENDORSE TO DAYSHIFT NURSE FOR CONTINUITY OF CARE.
--- NOTE | 2016-12-10 07:10 | NUR ---
MS RN OPENING NOTES RECEIVED PT. FROM NIGHTSHIFT NURSE IN STABLE CONDITION. PT. IS A/O X3. NO SOB OR SIGNS OF DISTRESS NOTED. PT. IS ON 2L O2 VIA NC AND SATING WELL @ 97%. BREATHING IS EVEN AND UNLABORED. DAILY WEIGHT WAS TAKEN AND DOCUMENTED BY THE NIGHTSHIFT NURSE. RIGHT UPPER ARM MIDLINE NOTED. MIDLINE IS PATENT AND INTACT. NO REDNESS OR SIGNS OF INFILTRATION NOTED TO SITE. PT. DENIES ANY PAIN AT THIS TIME. BED IN LOW LOCKED POSITION, SIDE RAILS UP X2, CALL LIGHT WITHIN REACH. WILL CONTINUE TO MONITOR.
[2016-12-10 07:55] LABS: CALCIUM, SERUM 8.3 mg/dL (8.5-10.1); CARBON DIOXIDE 23 mmol/L (21-32); CHLORIDE 105 mmol/L (98-107); CREATININE 1.5 mg/dL (0.6-1.3); GLUCOSE 108 mg/dL (74-106); SODIUM SERUM 142 mmol/L (136-145); UREA NITROGEN, BLOOD 44 mg/dL (7-18)
[2016-12-10 08:00] VITALS: BP 131/51
[2016-12-10 09:00] VITALS: BP 113/53
[2016-12-10] MEDS: VALSARTAN 80 MG TABLET PO SCH (09:00)
[2016-12-10] MEDS: FUROSEMIDE 40 MG TABLET PO SCH (09:00)
[2016-12-10] MEDS: NATEGLINIDE 60 MG TABLET PO SCH (09:00)
[2016-12-10] MEDS ORDERED: predniSONE 20 MG TABLET PO SCH (09:00)
[2016-12-10] MEDS: FOLIC ACID 1 MG TABLET PO SCH (09:21)
[2016-12-10] MEDS: ASPIRIN EC 81 MG TABLET.DR PO SCH (09:22)
[2016-12-10] MEDS: LINAGLIPTIN 5 MG TABLET PO SCH (09:22)
[2016-12-10] MEDS: TICAGRELOR 90 MG TABLET PO SCH (09:23)
[2016-12-10] MEDS: BLOOD SUGAR DIAGNOSTIC 1 EACH STRIP IN SCH (09:32)
[2016-12-10] MEDS ORDERED: PRED5TAB48 PO (11:41)
[2016-12-10] MEDS ORDERED: PRED20TA PO (11:41)
--- NOTE | 2016-12-10 13:12 | NUR ---
MS AUTOCAD DRAFTSMAN NOTES PT. LEFT FACILITY IN STABLE CONDITION ALL NEEDS WERE MET DURING SHIFTY AND ORDERS CARRIED OUT ACCORDINGLY. ALL DISCHARGE INFORMATION WAS DISCUSSED IN DETAIL WITH PT. PT. VERBALIZED UNDERSTANDING OF DISCHARGE INSTRUCTIONS AND SIGNED ALL NECESSARY DOCUMENTATION. BELONGINGS FORM WAS SIGNED AND ALL BELONGINGS WERE SENT HOME WITH PT. PRESCRIPTION FORM WAS ALSO SENT WITH PT. PT. WAS ACCOMPANIED BY NATTY WHO WATCHED SHE LEFT SAFELY IN A PRIVATE VEHICLE DRIVEN BY THE PT'S SON.
== END 2016-12-10 14:00 | disposition home or self-care (01) | DRG 291 ==
LOC: ER 19:56 → TELE 22:10 → MED 12-09 16:57
PROVIDERS: ADMIT Family Medicine; ATTEND Family Medicine
PROC: 05HF33Z Insertion of Infusion Device into Left Cephalic Vein, Percutaneous Approach (ICD-10-PCS; principal; 2016-12-08)
DX: I13.0 Hypertensive heart and chronic kidney disease with heart failure and stage 1 through stage 4 chronic kidney disease, or unspecified chronic kidney disease (principal); N17.0 Acute kidney failure with tubular necrosis; I50.33 Acute on chronic diastolic (congestive) heart failure; E44.1 Mild protein-calorie malnutrition; D72.829 Elevated white blood cell count, unspecified; R91.1 Solitary pulmonary nodule; E11.65 Type 2 diabetes mellitus with hyperglycemia; E11.22 Type 2 diabetes mellitus with diabetic chronic kidney disease; N18.9 Chronic kidney disease, unspecified; I48.0 Paroxysmal atrial fibrillation; I25.10 Atherosclerotic heart disease of native coronary artery without angina pectoris; Z95.5 Presence of coronary angioplasty implant and graft; E78.5 Hyperlipidemia, unspecified; K21.9 Gastro-esophageal reflux disease without esophagitis; F41.9 Anxiety disorder, unspecified; D53.9 Nutritional anemia, unspecified; D63.8 Anemia in other chronic diseases classified elsewhere; E53.8 Deficiency of other specified B group vitamins; I25.2 Old myocardial infarction; R07.89 Other chest pain; J45.909 Unspecified asthma, uncomplicated; J44.9 Chronic obstructive pulmonary disease, unspecified
CPT/HCPCS: 36415; 71010-TC; 71250-TC; 78582; 80048-TC; 80061-TC; 80076-TC; 82728-TC; 82962-TC; 83540-TC; 83735-TC; 83880; 84100-TC; 84484-TC; 85025-TC; 85730-TC; 87081-TC; 93970-TC; A4606; A9540; A9567; J1940; J7040; Z7610

== ENCOUNTER 2017-04-15 23:17 | Inpatient (IN) | payer MEDICARE, OTHER ==
[~2017-04-15] VITALS: Ht 167.6 cm; Wt 80.3 kg
[~2017-04-15 23:17] MED LIST changes: +ASPI-1169 PO; +LORA-259 PO; -LORA1TAB82 PO; +PRED20TA PO; +PRED5TAB48 PO; +TICA90TA PO
--- NOTE | 2017-04-15 23:17 | NUR ---
PT TO ER BED 5, PT BIB RA C/O CP SINCE 1699. NON RADIATING. AFIB ON MONITOR. PT PLACED IN A GOWN AND ON FORESTRY SCIENTIST. VSS/RESP EVEN UNLABORED/NAD NOTED/SKIN WARM AND DRY/DENIES N-V-D/AOX4. AWAITING MD ORTIZ.
--- NOTE | 2017-04-15 23:20 | NUR ---
AT BEDSIDE FOR EVAL.
--- NOTE | 2017-04-15 23:25 | NUR ---
18G IV X 1 ATTEMPT TO R AC USING ASEPTIC TECH, BLOOD HANDED OVER TO THE LAB AT BEDSIDE. EMT AT BEDSIDE FOR EKG.
--- NOTE | 2017-04-15 23:45 | NUR ---
XRAY AT BEDSIDE.
[2017-04-15] MEDS ORDERED: NITROGLYCERIN 0.4 MG/TAB BOTTLE ONE (23:46)
[2017-04-15] MEDS ORDERED: ASPIRIN 325 MG TABLET ONE (23:46)
[2017-04-15 23:53] LABS: CALCIUM, SERUM 8.7 mg/dL (8.5-10.1); CARBON DIOXIDE 22 mmol/L (21-32); CHLORIDE 105 mmol/L (98-107); CREATININE 1.5 mg/dL (0.6-1.3); GLUCOSE 149 mg/dL (74-106); POTASSIUM 4.3 mmol/L (3.5-5.1); SODIUM SERUM 138 mmol/L (136-145); UREA NITROGEN, BLOOD 44 mg/dL (7-18)
[2017-04-15 23:54] LABS: BASOPHILS % (AUTO) 0.5 % (0.0-2.0); EOSINOPHILS # (AUTO) 0.1 /CMM (0.0-0.7); EOSINOPHILS % (AUTO) 1.3 % (0.0-6.0); LYMPHOCYTES # (AUTO) 4.5 /CMM (0.8-4.8); LYMPHOCYTES % (AUTO) 59.7 % (20.0-44.0); MEAN CORPUSCULAR HEMOGLOBIN 37 PG (26.0-33.0); MEAN CORPUSCULAR HGB CONC 34 g/dl (31.0-36.0); MEAN CORPUSCULAR VOLUME 110 fL (82-100); MONOCYTES # (AUTO) 0.9 /CMM (0.1-1.30); MONOCYTES % (AUTO) 12.3 % (2.0-12.0); NEUTROPHILS % (AUTO) 26.2 % (43.0-81.0); PLATELET COUNT (AUTO) 55 /CMM (150-450); RDW COEFFICIENT OF VARIATION 20.8 (11.5-15.0); WHITE BLOOD COUNT (AUTO) 7.6 K/uL (4.3-11.0)
[2017-04-15 23:55] LABS: RED BLOOD CELL COUNT(AUTO) 1.71 MIL/uL (4.0-5.2)
[2017-04-15 23:56] LABS: HEMATOCRIT 19 % (33-45); HEMOGLOBIN 6.3 g/dL (11.5-14.8); INR 1.06 (0.87-1.13)
[2017-04-16] VITALS (13 sets, daily range): BP systolic 106–150; BP diastolic 34–74
[2017-04-16] MEDS ORDERED: ASPIRIN 325 MG TABLET PO ONE
[2017-04-16] MEDS ORDERED: NITROGLYCERIN 0.4 MG/TAB BOTTLE SL ONE
[2017-04-16 00:06] LABS: TROPONIN I < 0.017 ng/mL (0.00-0.056)
[2017-04-16 00:26] LABS: EOSINOPHILS % (MANUAL) 2 % (0-4); LYMPHOCYTES % (MANUAL) 61 % (16-48); MONOCYTES % (MANUAL) 10 % (0-11.0); NEUTROPHILS % (MANUAL) 27 (42-76)
[2017-04-16] MEDS ORDERED: IOHEXOL-300 100 ML VIAL IV ONE (00:27)
[2017-04-16] MEDS ORDERED: MAGNESIUM HYDROXIDE 30 ML UDC PO PRN (01:00)
[2017-04-16] MEDS ORDERED: ACETAMINOPHEN 325 MG TABLET PO PRN (01:00)
[2017-04-16] MEDS ORDERED: ONDANSETRON HCL/PF 4 MG/2 ML VIAL IVP PRN (01:00)
[2017-04-16] MEDS ORDERED: MAG HYDROX/AL HYDROX/SIMETH 30 ML UDC PO PRN (01:00)
[2017-04-16] MEDS ORDERED: HYDROCODONE/APAP 5/325MG 1 EACH TABLET PO PRN (01:00)
[2017-04-16] MEDS ORDERED: ISOSORBIDE DINITRATE (5MG) 5 MG TABLET PO PRN (01:00)
[2017-04-16] MEDS ORDERED: LORAZEPAM 1 MG TABLET PO PRN (01:00)
[2017-04-16] MEDS ORDERED: Medication Not On Formulary EA (Esomeprazole Mag Trihydrate (Nexium) 40 MG) PO PRN (01:00)
[2017-04-16] MEDS ORDERED: Z GUARD REMEDY 2 OZ OINT TP PRN (01:00)
--- NOTE | 2017-04-16 01:04 | NUR ---
PT ADMIT TO TELE 107.
--- NOTE | 2017-04-16 01:04 | NUR ---
Yen jolly in ED - 04/16/17 at 0104 by BOSTON PT ADBIT TO TELE 107
--- NOTE | 2017-04-16 01:12 | NUR ---
REPORT CALLED TO VICTORIANO ULLOA LAURY.
--- NOTE | 2017-04-16 01:25 | NUR ---
PT TRANS TO TELE 113-2 VIA STRETCHER WITH RN, ACLS PROTOCOL. VSS.
--- NOTE | 2017-04-16 01:30 | NUR ---
Admission Note Admitted from ER c/o chest pain radiating to the left arm..Hx hTN,,Afib.Valve replacement,DM,s/p stent,Anemia,right shoulder fracture. Patient at this point only complain of mild chest discomfort 3/10.O2 nc 2l/min.Comfort care done,needs attended.Patient with hgb.-6.3 for PRBC transfusion.
--- NOTE | 2017-04-16 02:35 | NUR ---
RN notes PRBC transfusion started
--- NOTE | 2017-04-16 03:30 | NUR ---
RN Notes Complaining of chest discomfort 01/08 .V/S remians stable ,no SOB.States chest pain not getting any better.
--- NOTE | 2017-04-16 03:35 | NUR ---
RN Notes. still did not call back patient still with chest pain now 02/07.Called back service again to refer acute chest pain episode.Charge nurse also aware ,trying to get in contact with ER MD and called back Dr. Chou's service. 0335 PRBC transfusion held temporarily till chest pain level decreases.,while waiting for to call back. 0340 Called back 's service.Called back and ordered may give morphine for the pain. 0343 Unable to give morphine ,patient allergic to morphine.
--- NOTE | 2017-04-16 03:50 | NUR ---
RN Notes Nitroglycerine 0.4mg SL given patient still have chest pain 02/07 0405 @nd dose NTG 0.4 mg SL given. 0410 Patient states relief of chset pain 09/07.PRBC transfusion resumed. 0415Patient feels better pain still 4-09/07 but patient states feels much better.
[2017-04-16] MEDS ORDERED: NITROGLYCERIN 0.4 MG/TAB BOTTLE ONE (03:52)
[2017-04-16] MEDS: NITROGLYCERIN 0.4 MG/TAB BOTTLE SL PRN ×2 (03:57→04:09)
--- NOTE | 2017-04-16 05:00 | NUR ---
RN NOTES.0500 Stable now no chest pain,sleeping comfortably ,.PRBC still infusing.
--- NOTE | 2017-04-16 06:00 | NUR ---
RN NOTES 0600 PRBC transfusion finished ,No s/s of transfusion reactio,denies any chest pain,denies any SOB, V/S stable.
[2017-04-16 07:19] LABS: BASOPHILS % (AUTO) 0.3 % (0.0-2.0); EOSINOPHILS # (AUTO) 0.1 /CMM (0.0-0.7); EOSINOPHILS % (AUTO) 1.9 % (0.0-6.0); HEMATOCRIT 23 % (33-45); HEMOGLOBIN 7.9 g/dL (11.5-14.8); LYMPHOCYTES # (AUTO) 3.8 /CMM (0.8-4.8); LYMPHOCYTES % (AUTO) 50.9 % (20.0-44.0); MEAN CORPUSCULAR HEMOGLOBIN 36 PG (26.0-33.0); MEAN CORPUSCULAR HGB CONC 34 g/dl (31.0-36.0); MEAN CORPUSCULAR VOLUME 105 fL (82-100); NEUTROPHILS # (AUTO) 2.6 /CMM (1.8-8.9); NEUTROPHILS % (AUTO) 33.9 % (43.0-81.0); PLATELET COUNT (AUTO) 51 /CMM (150-450); RDW COEFFICIENT OF VARIATION 24.5 (11.5-15.0); WHITE BLOOD COUNT (AUTO) 7.5 K/uL (4.3-11.0)
[2017-04-16 07:25] LABS: CALCIUM, SERUM 8.8 mg/dL (8.5-10.1); CARBON DIOXIDE 22 mmol/L (21-32); CHLORIDE 106 mmol/L (98-107); CREATININE 1.2 mg/dL (0.6-1.3); GLUCOSE 126 mg/dL (74-106); POTASSIUM 4.3 mmol/L (3.5-5.1); SODIUM SERUM 137 mmol/L (136-145); UREA NITROGEN, BLOOD 42 mg/dL (7-18)
[2017-04-16 07:38] LABS: TROPONIN I < 0.017 ng/mL (0.00-0.056)
[2017-04-16] MEDS: PANTOPRAZOLE 40 MG/PACK PACK PO SCH ×2 (08:15→09:06)
[2017-04-16] MEDS: VALSARTAN 80 MG TABLET PO SCH (09:00)
[2017-04-16] MEDS ORDERED: ASPIRIN 81 MG TAB.CHEW PO SCH (09:00)
[2017-04-16] MEDS ORDERED: SITAGLIPTIN PHOSPHATE 50 MG TABLET PO SCH (09:00)
[2017-04-16] MEDS ORDERED: TICAGRELOR 90 MG TABLET PO SCH (09:00)
[2017-04-16] MEDS: NATEGLINIDE 60 MG TABLET PO SCH ×2 (09:00→16:53)
[2017-04-16] MEDS: ATORVASTATIN 40 MG TABLET PO SCH ×2 (09:00→09:06)
[2017-04-16] MEDS: FOLIC ACID 1 MG TABLET PO SCH (09:06)
[2017-04-16] MEDS: LINAGLIPTIN 5 MG TABLET PO SCH (09:10)
[2017-04-16 09:27] LABS: THYROID STIMULATING HORMONE 4.057 uIU/mL (0.358-3.74)
[2017-04-16 10:11] LABS: BAND % (MANUAL) 1 % (0.0-5.0); LYMPHOCYTES % (MANUAL) 33 % (16-48); MONOCYTES % (MANUAL) 15 % (0-11.0); NEUTROPHILS % (MANUAL) 51 (42-76)
[2017-04-16] MEDS ORDERED: TICAGRELOR 90 MG TABLET PO ONE (12:30)
--- NOTE | 2017-04-16 12:34 | NUR ---
RN NOTE BRILINTA SCHEDULED 1230 WAS NOT ADMINISTERED SINCE PT CLAIMS SHE TOOK ONE THIS MORNING WHEN SON BROUGHT THE MEDICINE FROM HOME.
[2017-04-16 13:16] LABS: BASOPHILS % (AUTO) 0.3 % (0.0-2.0); EOSINOPHILS # (AUTO) 0.1 /CMM (0.0-0.7); EOSINOPHILS % (AUTO) 1.8 % (0.0-6.0); HEMATOCRIT 22 % (33-45); HEMOGLOBIN 7.4 g/dL (11.5-14.8); LYMPHOCYTES # (AUTO) 2.8 /CMM (0.8-4.8); LYMPHOCYTES % (AUTO) 40.5 % (20.0-44.0); MEAN CORPUSCULAR HEMOGLOBIN 36 PG (26.0-33.0); MEAN CORPUSCULAR HGB CONC 34 g/dl (31.0-36.0); MEAN CORPUSCULAR VOLUME 104 fL (82-100); MONOCYTES # (AUTO) 0.9 /CMM (0.1-1.30); NEUTROPHILS # (AUTO) 3.1 /CMM (1.8-8.9); NEUTROPHILS % (AUTO) 44.4 % (43.0-81.0); RDW COEFFICIENT OF VARIATION 23.9 (11.5-15.0); RED BLOOD CELL COUNT(AUTO) 2.08 MIL/uL (4.0-5.2); WHITE BLOOD COUNT (AUTO) 6.9 K/uL (4.3-11.0)
[2017-04-16 13:40] LABS: PLATELET COUNT (AUTO) 44 /CMM (150-450)
[2017-04-16 14:00] LABS: BAND % (MANUAL) 1 % (0.0-5.0); EOSINOPHILS % (MANUAL) 7 % (0-4); LYMPHOCYTES % (MANUAL) 29 % (16-48); MONOCYTES % (MANUAL) 12 % (0-11.0); NEUTROPHILS % (MANUAL) 51 (42-76)
--- NOTE | 2017-04-16 14:30 | NUR ---
RN NOTE SPOKE WITH DR COSTA, REPORTED H/H AND PLATELET LEVEL, GOT ORDER TO RECHECK CBC IN 4 HR. NO OTHER ORDERS. WILL MONITOR PT CLOSELY.
[2017-04-16 19:32] LABS: BASOPHILS % (AUTO) 0.6 % (0.0-2.0); EOSINOPHILS # (AUTO) 0.1 /CMM (0.0-0.7); EOSINOPHILS % (AUTO) 1.1 % (0.0-6.0); HEMATOCRIT 22 % (33-45); HEMOGLOBIN 7.4 g/dL (11.5-14.8); LYMPHOCYTES # (AUTO) 3.9 /CMM (0.8-4.8); LYMPHOCYTES % (AUTO) 50.9 % (20.0-44.0); MEAN CORPUSCULAR HEMOGLOBIN 36 PG (26.0-33.0); MEAN CORPUSCULAR HGB CONC 34 g/dl (31.0-36.0); MEAN CORPUSCULAR VOLUME 104 fL (82-100); MONOCYTES % (AUTO) 12.5 % (2.0-12.0); NEUTROPHILS # (AUTO) 2.7 /CMM (1.8-8.9); NEUTROPHILS % (AUTO) 34.9 % (43.0-81.0); RED BLOOD CELL COUNT(AUTO) 2.06 MIL/uL (4.0-5.2); WHITE BLOOD COUNT (AUTO) 7.7 K/uL (4.3-11.0)
[2017-04-16 19:36] LABS: PLATELET COUNT (AUTO) 46 /CMM (150-450)
[2017-04-16 19:58] LABS: BAND % (MANUAL) 3 % (0.0-5.0); EOSINOPHILS % (MANUAL) 2 % (0-4); LYMPHOCYTES % (MANUAL) 51 % (16-48); MONOCYTES % (MANUAL) 9 % (0-11.0); NEUTROPHILS % (MANUAL) 31 (42-76); REACTIVE LYMPHOCYTES 4 % (0-0)
--- NOTE | 2017-04-16 21:00 | NUR ---
RN HOWARD DF PT REFUSED CARDIZEM PO PT SLEEPING AND WOULD LIKE TO CONTINUE SLEEPING, PT DOESNT WANT TO TAKE MEDICATION AT THIS TIME. VSS.NAD NOTED.NSR ON MONITOR.
[2017-04-16] MEDS: DILTIAZEM HCL CD 240 MG PO SCH (22:00)
[2017-04-17] VITALS (15 sets, daily range): BP systolic 110–143; BP diastolic 34–87
[2017-04-17 07:26] LABS: BASOPHILS % (AUTO) 0.5 % (0.0-2.0); EOSINOPHILS # (AUTO) 0.1 /CMM (0.0-0.7); EOSINOPHILS % (AUTO) 1.1 % (0.0-6.0); LYMPHOCYTES % (AUTO) 58.5 % (20.0-44.0); MEAN CORPUSCULAR HEMOGLOBIN 36 PG (26.0-33.0); MEAN CORPUSCULAR HGB CONC 34 g/dl (31.0-36.0); MEAN CORPUSCULAR VOLUME 105 fL (82-100); MONOCYTES # (AUTO) 0.8 /CMM (0.1-1.30); MONOCYTES % (AUTO) 12.2 % (2.0-12.0); NEUTROPHILS # (AUTO) 1.9 /CMM (1.8-8.9); NEUTROPHILS % (AUTO) 27.7 % (43.0-81.0); RDW COEFFICIENT OF VARIATION 24.2 (11.5-15.0); WHITE BLOOD COUNT (AUTO) 6.9 K/uL (4.3-11.0)
[2017-04-17] MEDS: PANTOPRAZOLE 40 MG/PACK PACK PO SCH ×2 (07:30→08:37)
[2017-04-17 07:32] LABS: RED BLOOD CELL COUNT(AUTO) 1.85 MIL/uL (4.0-5.2)
[2017-04-17 07:35] LABS: HEMATOCRIT 20 % (33-45); HEMOGLOBIN 6.6 g/dL (11.5-14.8); PLATELET COUNT (AUTO) 39 /CMM (150-450)
[2017-04-17 07:50] LABS: CHOLESTEROL 102 mg/dL (<200); CREATINE KINASE, TOTAL 19 U/L (26-192); HDL CHOLESTEROL 36 mg/dL (40-60); LDL 61 mg/dL (0-99); THYROID STIMULATING HORMONE 3.199 uIU/mL (0.358-3.74); TRIGLYCERIDES 65 mg/dL (30-150)
[2017-04-17 07:51] LABS: ALANINE AMINOTRANSFERASE 18 U/L (12-78); ALBUMIN 3.1 g/dL (3.4-5.0); ALKALINE PHOSPHATASE 82 U/L (46-116); ASPARTATE AMINOTRANSFERASE 20 U/L (15-37); BILIRUBIN,TOTAL 1.3 mg/dL (0.2-1.0); CALCIUM, SERUM 8.6 mg/dL (8.5-10.1); CARBON DIOXIDE 26 mmol/L (21-32); CHLORIDE 107 mmol/L (98-107); CREATININE 1.2 mg/dL (0.6-1.3); GLUCOSE 122 mg/dL (74-106); MAGNESIUM 2.2 mg/dL (1.8-2.4); POTASSIUM 4.7 mmol/L (3.5-5.1); SODIUM SERUM 141 mmol/L (136-145); TOTAL PROTEIN, SERUM 7.6 g/dL (6.4-8.2); UREA NITROGEN, BLOOD 35 mg/dL (7-18)
--- NOTE | 2017-04-17 07:55 | NUR ---
EXECUTIVE DIRECTOR SHELTERED WORKSHOP NOTE CRITICAL LAB H/H 6.10/18. CALLED TO GIVE REPORT TO DR. COSTA. AWAITING CALL BACK.
--- NOTE | 2017-04-17 08:15 | NUR ---
SEISMOGRAPH CHIEF NOTE DR. COSTA ORDERED 1 UNIT PRBC.
[2017-04-17] MEDS: FOLIC ACID 1 MG TABLET PO SCH (08:36)
[2017-04-17] MEDS: NATEGLINIDE 60 MG TABLET PO SCH ×3 (08:37→17:00)
[2017-04-17] MEDS: LINAGLIPTIN 5 MG TABLET PO SCH ×2 (08:37→08:48)
[2017-04-17] MEDS: VALSARTAN 80 MG TABLET PO SCH (08:37)
--- NOTE | 2017-04-17 08:48 | NUR ---
MAINTENANCE FOREMAN NOTE PT REFUSED PROTONIX, TRAJENTA AND STARLIX. BP DECREASED DIOVAN HELD.
[2017-04-17 08:51] LABS: BAND % (MANUAL) 2 % (0.0-5.0); LYMPHOCYTES % (MANUAL) 69 % (16-48); METAMYELOCYTES % 1 % (0-0); MONOCYTES % (MANUAL) 12 % (0-11.0); NEUTROPHILS % (MANUAL) 16 (42-76)
--- NOTE | 2017-04-17 10:09 | NUR ---
MERCHANDISE FLOW TEAM LEADER NOTE BEGINNING 1 UNIT OF PRBC.
--- NOTE | 2017-04-17 10:50 | NUR ---
PATIENT C/O CP AND SOB. TRANSFUSION STOPPED CALLED DR. COSTA.
[2017-04-17] MEDS: NITROGLYCERIN 0.4 MG/TAB BOTTLE SL PRN ×2 (11:03→11:10)
--- NOTE | 2017-04-17 11:08 | NUR ---
S/P X2 NITRO SL. BP 114/87. NC 2 L SPO2 98%. TEMP 98.7. CONTINUING TO MONITOR CLOSELY.
--- NOTE | 2017-04-17 11:46 | NUR ---
DR Trevor COSTA AWARE OF STOPPED BLOOD TRANSFUSION URINALYSIS OBTAINED AND SENT TO LAB. AWAITING LAB TO OBTAIN BLOOD DRAW ON PATIENT. PT ON 2 L O2 NC. MONITORING PT CLOSELY.
[2017-04-17 12:04] LABS: APPEARANCE,URINE CLEAR (CLEAR); BILIRUBIN,URINE NEGATIVE (NEGATIVE); BLOOD, URINE NEGATIVE Ery/uL (NEGATIVE); COLOR,URINE YELLOW (YELLOW); KETONES,URINE NEGATIVE (NEGATIVE); LEUKOCYTE ESTERASE ,URINE 1+ (NEGATIVE); NITRITE, URINE NEGATIVE (NEGATIVE); PROTEIN,URINE TRACE mg/dl (NEGATIVE); UGLUCOSE NEGATIVE (NEGATIVE); UROBILINOGEN,URINE 0.2 EU/dL (0.2)
[2017-04-17 12:19] LABS: CREATININE, URINE 95.6 MG/DL (30.0-125.0); URINE TOTAL PROTEIN 54.6 mg/dL (0-11.9)
[2017-04-17] MEDS: NITROGLYCERIN 30 GM TUBE TP SCH ×2 (12:19→21:00)
[2017-04-17 12:27] LABS: BILIRUBIN,DIRECT 0.4 mg/dL (0.0-0.2); BILIRUBIN,TOTAL 1.5 mg/dL (0.2-1.0)
[2017-04-17 12:38] LABS: BACTERIA,URINE Rare /HPF (None Seen); RBC,URINE 0-2 /HPF (0-2); SQUAMOUS EPITHELIAL CELL,UR Rare /HPF (None Seen); WBC,URINE 0-2 /HPF (0-3)
--- NOTE | 2017-04-17 13:37 | NUR ---
PT REMOVED NITRO PASTE PATCH. PT STATED IT MADE HER FEEL UNCOMFORTABLE.
[2017-04-17] MEDS ORDERED: methylPREDNISolone SOD SUCC 125 MG/2ML VIAL IV ONE ×2 (15:30→17:00)
[2017-04-17] MEDS ORDERED: ACETAMINOPHEN 325 MG TABLET PO ONE ×2 (15:30→17:00)
[2017-04-17] MEDS ORDERED: LORAZEPAM 1 MG TABLET PO ONE (16:00)
[2017-04-17 17:29] LABS: BASOPHILS % (AUTO) 0.1 % (0.0-2.0); EOSINOPHILS # (AUTO) 0.1 /CMM (0.0-0.7); EOSINOPHILS % (AUTO) 0.9 % (0.0-6.0); HEMATOCRIT 21 % (33-45); HEMOGLOBIN 7.1 g/dL (11.5-14.8); LYMPHOCYTES # (AUTO) 4.9 /CMM (0.8-4.8); LYMPHOCYTES % (AUTO) 60.1 % (20.0-44.0); MEAN CORPUSCULAR HEMOGLOBIN 35 PG (26.0-33.0); MEAN CORPUSCULAR HGB CONC 33 g/dl (31.0-36.0); MEAN CORPUSCULAR VOLUME 106 fL (82-100); MONOCYTES % (AUTO) 12.6 % (2.0-12.0); NEUTROPHILS # (AUTO) 2.2 /CMM (1.8-8.9); NEUTROPHILS % (AUTO) 26.3 % (43.0-81.0); RDW COEFFICIENT OF VARIATION 24.2 (11.5-15.0); RED BLOOD CELL COUNT(AUTO) 2.02 MIL/uL (4.0-5.2); WHITE BLOOD COUNT (AUTO) 8.2 K/uL (4.3-11.0)
[2017-04-17 17:34] LABS: RETICULOCYTE COUNT 3.6 % (0.6-2.5)
[2017-04-17 17:37] LABS: PLATELET COUNT (AUTO) 40 /CMM (150-450)
[2017-04-17] MEDS ORDERED: diphenhydrAMINE HCL 50 MG/ML VIAL IV ONE (18:00)
--- NOTE | 2017-04-17 19:05 | NUR ---
OPERATIONAL RISK CONSULTANT OPENING NOTES RECEIVED REPORT FROM LINDA ESCOBAR. PATIENT A/A/O X4, ABLE TO MAKE NEEDS KNOWN. BREATHING EVEN & UNLABORED, ON O2 2L VIA NC. DENIES SOB OR DIFFICULTY BREATHING. ON TELE SR IN THE 70S. DENIES ANY CHEST PAIN OR DISCOMFORT @ THIS TIME. LEFT UPPER ARM MIDLINE #18 INTACT & PATENT W/ DRESSING CDI. SAFETY MEASURES IN PLACE W/ SIDE RAILS UP, BED LOCKED & IN LOWEST POSITION & CALL LIGHT WITHIN REACH. DAUGHTER CURRENTLY @ BEDSIDE. WILL CONTINUE TO MONITOR.
[2017-04-17 19:19] LABS: BAND % (MANUAL) 3 % (0.0-5.0); LYMPHOCYTES % (MANUAL) 64 % (16-48); MONOCYTES % (MANUAL) 11 % (0-11.0); NEUTROPHILS % (MANUAL) 22 (42-76)
--- NOTE | 2017-04-17 20:05 | NUR ---
RN NOTES ONE UNIT PRBC TRANSFUSION STARTED. INITIAL VS WNL, NO INITIAL REACTIONS NOTED. WILL CONTINUE TO MONITOR.
[2017-04-17] MEDS: DILTIAZEM HCL CD 240 MG PO SCH (21:51)
--- NOTE | 2017-04-17 21:53 | NUR ---
RN NOTES HELD CARDIZEM & NITROGLYCERIN OINTMENT D/T PATIENT'S ONGOING BLOOD TRANSFUSION & DECREASED HR 66 ON TELE MONITOR. BP ALSO WITHIN RANGE 126/63. CHARGE NURSE AWARE.
--- NOTE | 2017-04-17 23:32 | NUR ---
RN NOTES ONE UNIT PRBC TRANSFUSION COMPLETED W/ NO REACTIONS NOTED. PATIENT TOLERATED WELL.
[2017-04-18] VITALS: BP 135/64
--- NOTE | 2017-04-18 00:59 | NUR ---
RN NOTES OFFERED CARDIZEM & NITRO OINTMENT TO PATIENT B/C DOSES WERE HELD EARLEIR D/T BLOOD TRANSFUSION BUT PATIENT REFUSED. PER PATIENT, SHE WILL WAIT UNTIL MORNING FOR HER MORNING MEDS. CHARGE NURSE AWARE.
[2017-04-18 04:00] VITALS: BP 130/50
[2017-04-18 06:39] LABS: BASOPHILS % (AUTO) 0.4 % (0.0-2.0); EOSINOPHILS % (AUTO) 0.3 % (0.0-6.0); HEMATOCRIT 23 % (33-45); LYMPHOCYTES # (AUTO) 2.3 /CMM (0.8-4.8); LYMPHOCYTES % (AUTO) 36.8 % (20.0-44.0); MEAN CORPUSCULAR HEMOGLOBIN 35 PG (26.0-33.0); MEAN CORPUSCULAR HGB CONC 34 g/dl (31.0-36.0); MEAN CORPUSCULAR VOLUME 102 fL (82-100); MONOCYTES # (AUTO) 0.7 /CMM (0.1-1.30); MONOCYTES % (AUTO) 11.3 % (2.0-12.0); NEUTROPHILS # (AUTO) 3.2 /CMM (1.8-8.9); NEUTROPHILS % (AUTO) 51.2 % (43.0-81.0); RED BLOOD CELL COUNT(AUTO) 2.29 MIL/uL (4.0-5.2); WHITE BLOOD COUNT (AUTO) 6.2 K/uL (4.3-11.0)
[2017-04-18 06:45] LABS: CALCIUM, SERUM 8.6 mg/dL (8.5-10.1); CARBON DIOXIDE 20 mmol/L (21-32); CHLORIDE 108 mmol/L (98-107); CREATININE 1.2 mg/dL (0.6-1.3); GLUCOSE 149 mg/dL (74-106); POTASSIUM 4.6 mmol/L (3.5-5.1); SODIUM SERUM 139 mmol/L (136-145); UREA NITROGEN, BLOOD 39 mg/dL (7-18)
[2017-04-18 06:49] LABS: PLATELET COUNT (AUTO) 38 /CMM (150-450)
--- NOTE | 2017-04-18 07:10 | NUR ---
RN NOTES RECEIVED CALL FROM LAB FOR CRITICAL PLT = 38. CALLED [facility] FOR ON-CALL MD. ENDORSED TO ONCOMING NURSE.
[2017-04-18] MEDS: PANTOPRAZOLE 40 MG/PACK PACK PO SCH (07:30)
--- NOTE | 2017-04-18 07:30 | NUR ---
RN HOWARD RECEIVED PATIENT AWAKE ALERT ORIENTED X 3, PLEASANT AND CHEERFUL NO FEVER NO PAIN NOTICED ABLE TO CONSUME HER SHARE OF MEAL ABLE TO AMBULATE WITHOUT ASSIST AT TIMES USES COMMODE
[2017-04-18 08:00] VITALS: BP 151/49
[2017-04-18 08:57] LABS: BAND % (MANUAL) 2 % (0.0-5.0); LYMPHOCYTES % (MANUAL) 41 % (16-48); MONOCYTES % (MANUAL) 8 % (0-11.0); NEUTROPHILS % (MANUAL) 49 (42-76)
[2017-04-18] MEDS: LINAGLIPTIN 5 MG TABLET PO SCH (09:00)
[2017-04-18] MEDS: VALSARTAN 80 MG TABLET PO SCH (09:00)
[2017-04-18] MEDS: ATORVASTATIN 40 MG TABLET PO SCH (09:00)
[2017-04-18] MEDS: FOLIC ACID 1 MG TABLET PO SCH (09:00)
[2017-04-18] MEDS: NITROGLYCERIN 30 GM TUBE TP SCH (09:00)
[2017-04-18] MEDS: NATEGLINIDE 60 MG TABLET PO SCH (09:00)
--- NOTE | 2017-04-18 09:00 | NUR ---
RN HOWARD PATIENT REFUSED HER MEDICATION
[2017-04-18] MEDS ORDERED: MUPIROCIN OINT 2% 22 GM TUBE SCH (10:00)
[2017-04-18 12:00] VITALS: BP 138/63
[2017-04-18 14:16] LABS: *SPE A/G RATIO 0.9 (0.7-1.7); *SPE ALBUMIN 3.4 g/dL (2.9-4.4); *SPE ALPHA-1-GLOBULIN 0.2 g/dL (0.0-0.4); *SPE ALPHA-2-GLOBULIN 0.5 g/dL (0.4-1.0); *SPE BETA GLOBULIN 0.7 g/dL (0.7-1.3); *SPE GLOBULIN, TOTAL 3.6 g/dL (2.2-3.9); *SPE M-SPIKE 0.5 g/dL (Not Observed); *SPEGAMMA GLOBULIN 2.2 g/dL (0.4-1.8)
--- NOTE | 2017-04-18 14:38 | NUR ---
RN HOWARD SEEN AND EXAMINED BY MD EARLIER PATIENT IS STABLE AND DISCHARGED ORDER IS IN BELONGINGS CHECKED, MEDICAL RECORD AND EXIT CARE DONE IV REMOVED ESCORTED TO LOBBY VIA WHEELCHAIR WITH SON DISCHARGED
== END 2017-04-18 14:39 | disposition home or self-care (01) | DRG 840 ==
LOC: ER 23:18 → UNDOADMIN 04-16 00:56 → TELE1 04-16 00:56
PROVIDERS: ADMIT Nurse Practitioner Acute Care; ATTEND Nurse Practitioner Acute Care
PROC: 30233N1 Transfusion of Nonautologous Red Blood Cells into Peripheral Vein, Percutaneous Approach (ICD-10-PCS; principal; 2017-04-16)
PROC: 05H633Z Insertion of Infusion Device into Left Subclavian Vein, Percutaneous Approach (ICD-10-PCS; 2017-04-17)
DX: C85.90 Non-Hodgkin lymphoma, unspecified, unspecified site (principal); N17.0 Acute kidney failure with tubular necrosis; I50.33 Acute on chronic diastolic (congestive) heart failure; D61.818 Other pancytopenia; E86.9 Volume depletion, unspecified; E11.22 Type 2 diabetes mellitus with diabetic chronic kidney disease; E11.65 Type 2 diabetes mellitus with hyperglycemia; I27.20 Pulmonary hypertension, unspecified; I48.0 Paroxysmal atrial fibrillation; S22.32XA Fracture of one rib, left side, initial encounter for closed fracture; E78.5 Hyperlipidemia, unspecified; I25.10 Atherosclerotic heart disease of native coronary artery without angina pectoris; I25.2 Old myocardial infarction; K21.9 Gastro-esophageal reflux disease without esophagitis; Z90.710 Acquired absence of both cervix and uterus; Z91.19 Patient's noncompliance with other medical treatment and regimen; Z95.2 Presence of prosthetic heart valve; Z98.61 Coronary angioplasty status; R07.9 Chest pain, unspecified; F41.9 Anxiety disorder, unspecified; I71.4 Abdominal aortic aneurysm, without rupture; N18.9 Chronic kidney disease, unspecified; X58.XXXA Exposure to other specified factors, initial encounter; Y93.9 Activity, unspecified; Y92.009 Unspecified place in unspecified non-institutional (private) residence as the place of occurrence of the external cause; Z79.84 Long term (current) use of oral hypoglycemic drugs; I12.9 Hypertensive chronic kidney disease with stage 1 through stage 4 chronic kidney disease, or unspecified chronic kidney disease; D63.0 Anemia in neoplastic disease; D63.1 Anemia in chronic kidney disease
CPT/HCPCS: 36415; 71010-TC; 71250-TC; 80048-TC; 80053-TC; 80061-TC; 81000-TC; 82232; 82247-TC; 82248-TC; 82272-TC; 82306; 82550-TC; 82570-TC; 82728-TC; 82746; 83010; 83540-TC; 83735-TC; 83880; 83970; 84100-TC; 84155; 84155-TC; 84165; 84300-TC; 84439-TC; 84443-TC; 84484-TC; 85025-TC; 85045-TC; 85652-TC; 85730-TC; 86850-TC; 86921-TC; 87081-TC; 87086-TC; 93307-TC; J1200; J2930; J7030; J7040; P9016-BL; Q9967; Z7610

== ENCOUNTER 2017-04-18 22:05 | Inpatient (IN) | payer MEDICARE, OTHER ==
[~2017-04-18] VITALS: Ht 152.4 cm; Wt 81.2 kg
--- NOTE | 2017-04-18 22:15 | NUR ---
TO BED 7 AN 81 YO FEMALE PATIENT BBRA 88; SOB X 2 HOURS. PATIENT IS AAOX4, SOB TABATHA WITH EXERTION AND PER PATIENT SHE WAS JUST DC TODAY [facility] WITH DX OF ANEMIA AND POST BLOOD TRANSFUSION. O2 APPLIED PER DR KIMBLE'S ORDER, SATTING AT 98% AT 2LPM VIA NC. PLACED PATIENT ON CARDIAC AND VS MONITORING. GOWNED. COMFORT MEASURES RENDERED.
--- NOTE | 2017-04-18 22:25 | NUR ---
STARTED ON RAC G18, BLOOD DRAWN AND SENT TO LAB.
[2017-04-18 22:46] LABS: BASOPHILS # (AUTO) 0.1 /CMM (0.0-0.2); BASOPHILS % (AUTO) 0.9 % (0.0-2.0); EOSINOPHILS % (AUTO) 0.1 % (0.0-6.0); HEMATOCRIT 22 % (33-45); HEMOGLOBIN 7.6 g/dL (11.5-14.8); LYMPHOCYTES # (AUTO) 3.6 /CMM (0.8-4.8); LYMPHOCYTES % (AUTO) 48.1 % (20.0-44.0); MEAN CORPUSCULAR HEMOGLOBIN 35 PG (26.0-33.0); MEAN CORPUSCULAR HGB CONC 34 g/dl (31.0-36.0); MEAN CORPUSCULAR VOLUME 103 fL (82-100); MONOCYTES # (AUTO) 0.9 /CMM (0.1-1.30); MONOCYTES % (AUTO) 12.7 % (2.0-12.0); NEUTROPHILS # (AUTO) 2.8 /CMM (1.8-8.9); NEUTROPHILS % (AUTO) 38.2 % (43.0-81.0); RDW COEFFICIENT OF VARIATION 24.1 (11.5-15.0); RED BLOOD CELL COUNT(AUTO) 2.17 MIL/uL (4.0-5.2); WHITE BLOOD COUNT (AUTO) 7.4 K/uL (4.3-11.0)
[2017-04-18 22:55] LABS: CALCIUM, SERUM 8.8 mg/dL (8.5-10.1); CARBON DIOXIDE 22 mmol/L (21-32); CHLORIDE 107 mmol/L (98-107); CREATININE 1.5 mg/dL (0.6-1.3); GLUCOSE 164 mg/dL (74-106); POTASSIUM 4.3 mmol/L (3.5-5.1); SODIUM SERUM 138 mmol/L (136-145); UREA NITROGEN, BLOOD 49 mg/dL (7-18)
[2017-04-18 22:59] LABS: INR 1.09 (0.87-1.13); PROTHROMBIN TIME 11.3 SECS (9.5-12.7)
[2017-04-18 23:03] LABS: TROPONIN I < 0.017 ng/mL (0.00-0.056)
[2017-04-18 23:07] LABS: PLATELET COUNT (AUTO) 42 /CMM (150-450)
[2017-04-18 23:09] LABS: ALANINE AMINOTRANSFERASE 20 U/L (12-78); ALBUMIN 3.2 g/dL (3.4-5.0); ALKALINE PHOSPHATASE 85 U/L (46-116); ASPARTATE AMINOTRANSFERASE 14 U/L (15-37); BILIRUBIN,DIRECT 0.3 mg/dL (0.0-0.2); BILIRUBIN,TOTAL 1.4 mg/dL (0.2-1.0)
[2017-04-18 23:10] LABS: B-TYPE NATRIURETIC PEPTIDE 3667 PG/ML (0-125)
[2017-04-18 23:18] LABS: BAND % (MANUAL) 4 % (0.0-5.0); LYMPHOCYTES % (MANUAL) 47 % (16-48); METAMYELOCYTES % 1 % (0-0); MONOCYTES % (MANUAL) 10 % (0-11.0); MYELOCYTES % 1 % (0-0); NEUTROPHILS % (MANUAL) 37 (42-76)
--- NOTE | 2017-04-18 23:39 | NUR ---
PAGED [facility] DOCTOR FOR A SECOND TIME
--- NOTE | 2017-04-18 23:55 | NUR ---
started prbc transfusion per Dr wright's orders, and patient with hg 7.6. Nurse Sophia verified with me blood taken from blood bank. will closely monitor patient.
[2017-04-19] VITALS (7 sets, daily range): BP systolic 118–154; BP diastolic 34–58
--- NOTE | 2017-04-19 00:23 | NUR ---
RECEIVED REPORT FROM ER NURSE WILI.
--- NOTE | 2017-04-19 00:23 | NUR ---
Report given to Renzo ESCOBAR for admission and guillermo.
--- NOTE | 2017-04-19 00:50 | NUR ---
RECEIVED PATIENT AT ROOM 108. PATIENT IS ALERT AND ORIENTED X 4.
--- NOTE | 2017-04-19 00:50 | NUR ---
Transferred patient to tele bed 108 via als protocol, no incident noted. patient remained alert and responsive. vss. ongoing blood transfusion without adverse reaction noted.
--- NOTE | 2017-04-19 01:00 | NUR ---
HAND HIDE STRETCHER NOTES EXPLAINED TO PATIENT THE NEED FOR SIM CATHETER DUE TO STRICT INTAKE AND OUTPUT RECORDING. OFFERED SIM CATHETER 3 TIMES AND EXPLAINED THE RISKS AND BENEFITS. PATIENT REFUSED. PATIENT VERBALIZE SHE WILL USE THE BATHROOM TO URINATE. PATIENT AGREED TO USE A HAT FOR MEASURING INTAKE AND OUTPUT
[2017-04-19] MEDS ORDERED: MAGNESIUM HYDROXIDE 30 ML UDC PO PRN (02:00)
[2017-04-19] MEDS ORDERED: LORAZEPAM 1 MG TABLET PO PRN (02:00)
[2017-04-19] MEDS: ENOXAPARIN SODIUM 30 MG/0.3 ML DISP.SYRIN SQ SCH ×2 (02:00→03:16)
[2017-04-19] MEDS ORDERED: ZOLPIDEM TARTRATE 5 MG TABLET PO PRN (02:00)
[2017-04-19] MEDS ORDERED: Z GUARD REMEDY 2 OZ OINT TP PRN (02:00)
[2017-04-19] MEDS ORDERED: ONDANSETRON HCL/PF 4 MG/2 ML VIAL IVP PRN (02:00)
[2017-04-19] MEDS ORDERED: FUROSEMIDE 20 MG/2 ML VIAL IV SCH (02:00)
[2017-04-19] MEDS ORDERED: ACETAMINOPHEN 325 MG TABLET PO PRN (02:00)
[2017-04-19] MEDS ORDERED: HYDROCODONE/APAP 5/325MG 1 EACH TABLET PO PRN (02:00)
[2017-04-19] MEDS ORDERED: DEXTROSE 50%-WATER 50 ML DISP.SYRIN IV PRN (02:00)
[2017-04-19] MEDS ORDERED: FUROSEMIDE 20 MG/2 ML VIAL IV ONE (02:00)
[2017-04-19] MEDS ORDERED: MAG HYDROX/AL HYDROX/SIMETH 30 ML UDC PO PRN (02:00)
[2017-04-19] MEDS ORDERED: ENOXAPARIN SODIUM 30 MG/0.3 ML DISP.SYRIN ONE (02:54)
[2017-04-19] MEDS ORDERED: FUROSEMIDE 20 MG/2 ML VIAL ONE (02:54)
--- NOTE | 2017-04-19 03:21 | NUR ---
RN NOTES PATIENT REFUSED LOVENOX. OFFERED 3 TIMES. EXPLAINED RISKS AND BENEFITS OF MEDICATION REFUSAL WITH VERBALIZATION OF UNDERSTANDING BUT PATIENT STILL STRONGLY REFUSES. MEDICATION WASTED IN OMNICELL WITH CHARGE NURSE.
--- NOTE | 2017-04-19 04:00 | NUR ---
RN NOTES AFTER IV DIURETICS ADMINISTERED, PATIENT WITH INCREASED URINARY FREQUENCY. AGAIN OFFERED SIM CATHETER, BUT PATIENT AGAIN STRONGLY REFUSES. INSTRUCTED PATIENT TO PRESS CALL LIGHT FOR STANDBY ASSISTANCE. PATIENT VERBALIZES UNDERSTANDING, BUT IS NONCOMPLIANT WITH SAFETY INSTRUCTIONS. BED ALARM FOR PATIENT SAFETY, STAFF IN CLOSE PROXIMITY FOR PATIENT SAFETY. PATIENT REFUSES TO HAVE ROOM MOVED CLOSER TO STATION.
--- NOTE | 2017-04-19 08:06 | NUR ---
ZHEN RN NOTES RECEIVED PT ON BED WATCHING TV, A/O 4. ON NC 2LPM SATURATING WELL NO SIGNS OF DISTRESS. ON FOAM TANK LAMINATOR, SR PAC PRIMARY AV BLOCK. PT ON STRICT I/O INSTRUCTIONS GIVEN. IV ACCESS ON RAC #18 NO SIGNS OF REDNESS OR INFECTION. SIDE RAILS UP. HEAD OF BED ELEVATED. CALL LIGHT IS WITHIN REACH. BED ALARM ON. WILL CONTINUE TO MONITOR PT. Addendum: 04/19/17 at 0921 by JOANNA RAHMAN RN ADDENDUM PT HAS A BLOOD GLUCOSE OF 116. PT REFUSED TRAJENTA. EXPLAINED THE BENEFITS OF TAKING TRAJENTA.
[2017-04-19] MEDS: BLOOD SUGAR DIAGNOSTIC 1 EACH STRIP IN SCH ×4 (08:37→23:02)
[2017-04-19] MEDS: ATORVASTATIN 40 MG TABLET PO SCH (08:39)
[2017-04-19] MEDS: LINAGLIPTIN 5 MG TABLET PO SCH ×2 (08:39→08:44)
[2017-04-19] MEDS: FOLIC ACID 1 MG TABLET PO SCH (08:39)
[2017-04-19] MEDS ORDERED: ASPIRIN 81 MG TAB.CHEW PO SCH ×2 (09:00)
[2017-04-19] MEDS ORDERED: TICAGRELOR 90 MG TABLET PO SCH (09:00)
--- NOTE | 2017-04-19 09:41 | NUR ---
TD/RN ROUNDS - PHYSICAL THERAPIST PT BEING SEEN & EVALUATED BY PHYSICAL THERAPIST. MONITORING CONTINUED.
--- NOTE | 2017-04-19 10:25 | NUR ---
TD/RN ROUNDS - DR. SULLIVAN UPDATED PT'S CONDITION. PT SEEN & EXAMINED BY DR. SULLIVAN. WITH NEW ORDERS RECEIVED, NOTED. MONITORING CONTINUED.
[2017-04-19 11:38] LABS: BASOPHILS % (AUTO) 0.1 % (0.0-2.0); EOSINOPHILS % (AUTO) 0.4 % (0.0-6.0); HEMATOCRIT 25 % (33-45); HEMOGLOBIN 8.4 g/dL (11.5-14.8); LYMPHOCYTES # (AUTO) 4.2 /CMM (0.8-4.8); LYMPHOCYTES % (AUTO) 46.7 % (20.0-44.0); MEAN CORPUSCULAR HEMOGLOBIN 34 PG (26.0-33.0); MEAN CORPUSCULAR HGB CONC 34 g/dl (31.0-36.0); MEAN CORPUSCULAR VOLUME 100 fL (82-100); MONOCYTES # (AUTO) 1.1 /CMM (0.1-1.30); MONOCYTES % (AUTO) 12.7 % (2.0-12.0); NEUTROPHILS # (AUTO) 3.6 /CMM (1.8-8.9); NEUTROPHILS % (AUTO) 40.1 % (43.0-81.0); RED BLOOD CELL COUNT(AUTO) 2.48 MIL/uL (4.0-5.2); WHITE BLOOD COUNT (AUTO) 8.9 K/uL (4.3-11.0)
[2017-04-19 11:43] LABS: PLATELET COUNT (AUTO) 37 /CMM (150-450)
--- NOTE | 2017-04-19 12:00 | NUR ---
TD/RN MEDICATIONS - VERIFIED VERIFIED THROUGH PHARMACY THAT MEDICATIONS: ASPIRIN, LOVENOX AND BRILINTA WAS DISCONTINUED BY DR. PARDO. DR. BONNER MADE AWARE, ALSO FOLLOW-UP REGARDING HOME MEDS, ISORDIL. NO NEW ORDERS RECEIVED AT THIS TIME.
--- NOTE | 2017-04-19 12:06 | NUR ---
TD/RN CRITICAL LAB VALUE CESAR FROM LABORATORY CALLED FOR CRITICAL LAB VALUE FOR PLATELET, 37. DR. BONNER NOTIFIED VIA TEXT MESSAGE. NO NEW ORDERS RECEIVED AT THIS TIME. PT FOR SCHEDULED BS CHECKED, REFUSED. RISK AND BENEFITS EXPLAINED, PT STILL REFUSED. NO S/S OF HYPO OR HYPERGLYCEMIA. ON GOING MONITORING.
[2017-04-19 12:09] LABS: ABG BASE EXCESS -2.8 mmol/L; ABG PCO2 33.5 mmHg (35.0-45.0); ABG PH 7.419 (7.350-7.450); ABG PO2 82.6 mmHg (75.0-100.0); COHb 1.7 % (0.5-1.5); MetHb 0.7 % (0.0-1.5); O2Hb 92.7 % (94.0-97.0); SITE, ABG Right Radial; VENT MODE, BG ROOM AIR
[2017-04-19 12:16] LABS: CALCIUM, SERUM 8.9 mg/dL (8.5-10.1); CARBON DIOXIDE 24 mmol/L (21-32); CHLORIDE 106 mmol/L (98-107); CREATININE 1.1 mg/dL (0.6-1.3); GLUCOSE 88 mg/dL (74-106); POTASSIUM 4.3 mmol/L (3.5-5.1); SODIUM SERUM 138 mmol/L (136-145); UREA NITROGEN, BLOOD 44 mg/dL (7-18)
[2017-04-19 12:21] LABS: ALANINE AMINOTRANSFERASE 17 U/L (12-78); ALBUMIN 3.4 g/dL (3.4-5.0); ALKALINE PHOSPHATASE 86 U/L (46-116); ASPARTATE AMINOTRANSFERASE 24 U/L (15-37); MAGNESIUM 2.1 mg/dL (1.8-2.4); PHOSPHORUS 3.3 mg/dL (2.5-4.9); TOTAL PROTEIN, SERUM 8.2 g/dL (6.4-8.2)
--- NOTE | 2017-04-19 12:30 | NUR ---
TD RN NOTES PT EVALUATION PT WALKED WITH PT, PT WITH STEADY GAIT WITH WALKER, TOLERATED WELL. PER PT LOW LEVEL , PT TO BE TAKEN OF THEIR CASE.
[2017-04-19 12:44] LABS: BAND % (MANUAL) 3 % (0.0-5.0); LYMPHOCYTES % (MANUAL) 26 % (16-48); MONOCYTES % (MANUAL) 9 % (0-11.0); NEUTROPHILS % (MANUAL) 62 (42-76)
[2017-04-19 12:51] LABS: IRON, SERUM 201 ug/dl (50-175); TOTAL IRON BINDING CAPACITY 229 ug/dl (250-450)
--- NOTE | 2017-04-19 17:30 | NUR ---
HOWARD RN INITIAL NOTE RECEIVED PT SITTING UP IN BED WITH FAMILY AT BEDSIDE. A/O X4 AND ABLE TO VERBALIZE NEEDS. ON ROOM AIR BUT ALTERNATING WITH 2L OF O2 VIA NC AND TOLERATING WELL. BREATHING REGULAR, EVEN AND UNLABORED. NO C/O PAIN NOTED. TELE-1 DEGREE AV BLOCK WITH PAC. IV RAC #18 CLEAN, DRY AND FLUSHING WELL. ENCOURAGE PT TO USE BEDSIDE COMMODE INSTEAD OF WALKING TO THE RESTROOM FOR SAFETY MEASURES. PT EXPRESSED CONCERN REGARDING RECENT LAB TAKEN OF H/H AND ASKING WHAT ORDERS DR. WILSON PUT IN. EXPLAINED TO PT RESULTS WERE NOT UP YET AND WILL F/U . CALL LIGHT WITHIN REACH. WILL CONTINUE TO MONITOR. Addendum: 04/20/17 at 0700 by PRATEEK SHETH RN ERROR OF TIME. SHOULD BE 1930 INSTEAD.
--- NOTE | 2017-04-19 18:41 | NUR ---
TD RN NOTE DOCTORS ORDER DR BONNER ORDERED STAT H/H
[2017-04-19 19:50] LABS: HEMOGLOBIN 7.7 g/dL (11.5-14.8)
[2017-04-19] MEDS ORDERED: ENOXAPARIN SODIUM 30 MG/0.3 ML DISP.SYRIN SQ SCH (21:00)
--- NOTE | 2017-04-19 21:00 | NUR ---
HOWARD RN NOTE RESULTS RECEIVED FOR H/H OF 7.11/20. INFORMED RESULTS TO ORE GRADER DR. CRUZ AND SAID TO WAIT FOR LABS IN THE MORNING. ALSO INFORMED THAT PT EXPRESSED CONCERN REGARDING DR. WILSON AND HOW SHE WANTED ANOTHER BOAT DETAILER. DR. CRUZ SAID TO REFER DR. BAEZA ON TO THE PT'S CASE. WILL INFORM MORNING RN.
[2017-04-19] MEDS ORDERED: FAMOTIDINE (20 MG) 20 MG TABLET ONE (23:00)
[2017-04-19] MEDS ORDERED: methylPREDNISolone SOD SUCC 125 MG/2ML VIAL ONE (23:01)
[2017-04-19] MEDS: methylPREDNISolone SOD SUCC 125 MG/2ML VIAL IV SCH (23:02)
[2017-04-19] MEDS: FAMOTIDINE (20 MG) 20 MG TABLET PO SCH (23:02)
[2017-04-20] VITALS: BP 126/49
[2017-04-20 04:00] VITALS: BP 136/40
[2017-04-20 06:51] LABS: BASOPHILS % (AUTO) 0.3 % (0.0-2.0); HEMATOCRIT 23 % (33-45); LYMPHOCYTES # (AUTO) 2.2 /CMM (0.8-4.8); LYMPHOCYTES % (AUTO) 35.5 % (20.0-44.0); MEAN CORPUSCULAR HEMOGLOBIN 35 PG (26.0-33.0); MEAN CORPUSCULAR HGB CONC 34 g/dl (31.0-36.0); MEAN CORPUSCULAR VOLUME 101 fL (82-100); MONOCYTES # (AUTO) 0.3 /CMM (0.1-1.30); MONOCYTES % (AUTO) 4.9 % (2.0-12.0); NEUTROPHILS # (AUTO) 3.7 /CMM (1.8-8.9); NEUTROPHILS % (AUTO) 59.3 % (43.0-81.0); RDW COEFFICIENT OF VARIATION 24.7 (11.5-15.0); RED BLOOD CELL COUNT(AUTO) 2.31 MIL/uL (4.0-5.2); WHITE BLOOD COUNT (AUTO) 6.2 K/uL (4.3-11.0)
[2017-04-20 07:04] LABS: PLATELET COUNT (AUTO) 33 /CMM (150-450)
[2017-04-20 07:11] LABS: ALANINE AMINOTRANSFERASE 21 U/L (12-78); ALBUMIN 3.2 g/dL (3.4-5.0); ALKALINE PHOSPHATASE 83 U/L (46-116); ASPARTATE AMINOTRANSFERASE 22 U/L (15-37); BILIRUBIN,TOTAL 1.2 mg/dL (0.2-1.0); CALCIUM, SERUM 8.7 mg/dL (8.5-10.1); CARBON DIOXIDE 24 mmol/L (21-32); CHLORIDE 106 mmol/L (98-107); CREATININE 1.3 mg/dL (0.6-1.3); GLUCOSE 193 mg/dL (74-106); MAGNESIUM 2.1 mg/dL (1.8-2.4); PHOSPHORUS 3.8 mg/dL (2.5-4.9); POTASSIUM 4.5 mmol/L (3.5-5.1); SODIUM SERUM 136 mmol/L (136-145); TOTAL PROTEIN, SERUM 7.9 g/dL (6.4-8.2); UREA NITROGEN, BLOOD 44 mg/dL (7-18)
--- NOTE | 2017-04-20 07:35 | NUR ---
HOWARD RN CLOSING NOTE PT REMAINED STABLE DURING SHIFT. NO ACUTE DISTRESS NOTED. ABLE TO MAKE NEEDS KNOWN. ASSISTED TO BEDSIDE COMMODE SAFELY. ALL DUE MEDS GIVEN ORDERED AND WELL TOLERATED. RECEIVED RESULTS FROM LAB FOR PLATELETS 33. CALL LIGHT WITHIN REACH. WILL ENDORSE TO NEXT SHIFT FOR CONTINUITY OF CARE.
[2017-04-20 08:00] VITALS: BP 138/50
[2017-04-20] MEDS: BLOOD SUGAR DIAGNOSTIC 1 EACH STRIP IN SCH ×4 (08:13→21:13)
[2017-04-20] MEDS: ATORVASTATIN 40 MG TABLET PO SCH (08:19)
[2017-04-20] MEDS: FOLIC ACID 1 MG TABLET PO SCH (08:19)
[2017-04-20] MEDS: LINAGLIPTIN 5 MG TABLET PO SCH (08:20)
[2017-04-20] MEDS: FAMOTIDINE (20 MG) 20 MG TABLET PO SCH ×2 (08:20→21:13)
[2017-04-20] MEDS: methylPREDNISolone SOD SUCC 125 MG/2ML VIAL IV SCH ×3 (08:20→17:36)
--- NOTE | 2017-04-20 08:30 | NUR ---
HOWARD RN: Pt extensively educated on POC, labs and condition. Questions answered. Awaiting consult from Dr. Alonso. Pt refuses to take am dose of Pepcid, Tradjenta. Per pt "My stomach is fine, I don't need to take anything for it. Also, I want to take Januvia [not on formulary, substituted with Tradjenta] instead. My son said he'll bring my home meds." Continues to refuse despite education.
[2017-04-20 08:47] LABS: BAND % (MANUAL) 2 % (0.0-5.0); LYMPHOCYTES % (MANUAL) 34 % (16-48); MONOCYTES % (MANUAL) 8 % (0-11.0); NEUTROPHILS % (MANUAL) 56 (42-76)
--- NOTE | 2017-04-20 11:00 | NUR ---
HOWARD RN: Dr Thibodeaux at the bedside. Updated on pt status. Pt continues to report SOB upon ambulating to [facility]. Pt requested to have 2nd oncologist. Dr Thibodeaux contacted Dr Alonso regarding consult. MD aware of refusal of meds. Son and pt in agreement with plan. Addendum: 04/20/17 at 1901 by SILVIO MARTINEZ RN Per Dr Thibodeaux keep pt in hospital, continue current orders on tele. Pt with symptomatic anemia.
[2017-04-20 12:00] VITALS: BP 117/46
[2017-04-20 16:00] VITALS: BP 125/57
--- NOTE | 2017-04-20 19:03 | NUR ---
HOWARD RN: Pt sitting in bed, watching tv, daughter in law at bedside. Awaiting Dr Alonso for oncology consult.
[2017-04-20 20:00] VITALS: BP 119/42
[2017-04-20] MEDS: INSULIN REGULAR, HUMAN 100 UNIT/ML 3 ML VIAL SQ PRN (21:16)
[2017-04-21] VITALS: BP 126/45
[2017-04-21 05:00] VITALS: BP 118/36
[2017-04-21 06:30] LABS: BASOPHILS % (AUTO) 0.3 % (0.0-2.0); HEMATOCRIT 21 % (33-45); HEMOGLOBIN 7.2 g/dL (11.5-14.8); LYMPHOCYTES # (AUTO) 1.9 /CMM (0.8-4.8); LYMPHOCYTES % (AUTO) 28.4 % (20.0-44.0); MEAN CORPUSCULAR HEMOGLOBIN 35 PG (26.0-33.0); MEAN CORPUSCULAR HGB CONC 34 g/dl (31.0-36.0); MEAN CORPUSCULAR VOLUME 102 fL (82-100); MONOCYTES # (AUTO) 0.8 /CMM (0.1-1.30); MONOCYTES % (AUTO) 11.8 % (2.0-12.0); NEUTROPHILS % (AUTO) 59.5 % (43.0-81.0); RDW COEFFICIENT OF VARIATION 24.1 (11.5-15.0); RED BLOOD CELL COUNT(AUTO) 2.07 MIL/uL (4.0-5.2); WHITE BLOOD COUNT (AUTO) 6.8 K/uL (4.3-11.0)
[2017-04-21 06:49] LABS: ALANINE AMINOTRANSFERASE 20 U/L (12-78); ALBUMIN 3.1 g/dL (3.4-5.0); ALKALINE PHOSPHATASE 71 U/L (46-116); ASPARTATE AMINOTRANSFERASE 13 U/L (15-37); BILIRUBIN,DIRECT 0.2 mg/dL (0.0-0.2); BILIRUBIN,TOTAL 0.9 mg/dL (0.2-1.0); CALCIUM, SERUM 8.8 mg/dL (8.5-10.1); CARBON DIOXIDE 22 mmol/L (21-32); CHLORIDE 111 mmol/L (98-107); CREATININE 1.3 mg/dL (0.6-1.3); GLUCOSE 174 mg/dL (74-106); POTASSIUM 4.6 mmol/L (3.5-5.1); SODIUM SERUM 141 mmol/L (136-145); TOTAL PROTEIN, SERUM 7.6 g/dL (6.4-8.2); UREA NITROGEN, BLOOD 50 mg/dL (7-18)
[2017-04-21 06:59] LABS: THYROID STIMULATING HORMONE 0.751 uIU/mL (0.358-3.74)
--- NOTE | 2017-04-21 07:00 | NUR ---
moshe initial note received pt in bed, awake, able to make needs known, able to follow commands, pt is on tele monitor showing sb w/ 1 degree av block @58bpm, no c/o of chest pain or discomfort at this time, pt is on ra, sating well, breathing is unlabored and even, no s/s of resp.distress or sob noted, pt is currently npo d/t upcoming test, pt is ambulatory, pt has rac #18g, sl, c/d/i/patent, flushing well, no s/s of infection/ infiltration noted at this time, all safety measures in place at all times, call light within easy reach, will monitor pt closely for changes
[2017-04-21 07:49] LABS: PLATELET COUNT (AUTO) 36 /CMM (150-450)
[2017-04-21 08:00] VITALS: BP 131/50
[2017-04-21 08:27] LABS: BAND % (MANUAL) 4 % (0.0-5.0); EOSINOPHILS % (MANUAL) 1 % (0-4); LYMPHOCYTES % (MANUAL) 24 % (16-48); METAMYELOCYTES % 1 % (0-0); MONOCYTES % (MANUAL) 12 % (0-11.0); MYELOCYTES % 1 % (0-0); NEUTROPHILS % (MANUAL) 57 (42-76)
[2017-04-21] MEDS: LINAGLIPTIN 5 MG TABLET PO SCH (08:30)
[2017-04-21] MEDS: ATORVASTATIN 40 MG TABLET PO SCH (08:30)
[2017-04-21] MEDS: FAMOTIDINE (20 MG) 20 MG TABLET PO SCH ×2 (08:30→21:05)
[2017-04-21] MEDS: FOLIC ACID 1 MG TABLET PO SCH (08:30)
[2017-04-21] MEDS: BLOOD SUGAR DIAGNOSTIC 1 EACH STRIP IN SCH ×4 (08:30→22:40)
[2017-04-21] MEDS: methylPREDNISolone SOD SUCC 125 MG/2ML VIAL IV SCH ×3 (08:30→16:24)
--- NOTE | 2017-04-21 08:30 | NUR ---
moshe note pt reufsed pepcid and tragjenta, educated pt on risk and benefits, pt still refused medications
--- NOTE | 2017-04-21 09:17 | NUR ---
moshe note tire service technician at bedside at this time.
--- NOTE | 2017-04-21 10:12 | NUR ---
moshe note faxed over record release form to [facility] [phone] attn bruce.
[2017-04-21] MEDS: INSULIN REGULAR, HUMAN 100 UNIT/ML 3 ML VIAL SQ PRN ×3 (11:25→22:41)
[2017-04-21 12:00] VITALS: BP 125/42
[2017-04-21 16:00] VITALS: BP 107/73
[2017-04-21 16:54] LABS: HEMOGLOBIN 6.8 g/dL (11.5-14.8)
[2017-04-21] MEDS ORDERED: [UNRECOGNIZED DRUG - OTHER] IV PRN (19:00)
[2017-04-21] MEDS ORDERED: [UNRECOGNIZED DRUG - OTHER] IV PRN (19:00)
[2017-04-21] MEDS ORDERED: IMMUNE GLOBULIN IV PRN (19:00)
[2017-04-21] MEDS ORDERED: WATER FOR INJECTION STERILE IV PRN (19:00)
--- NOTE | 2017-04-21 19:38 | NUR ---
moshe note pt has no iv access, dr. ozuna aware, midline ordered, pm rn aware
[2017-04-21 20:00] VITALS: BP 106/49
[2017-04-21] MEDS ORDERED: IMMUNE GLOBULIN IV ONE (22:00)
[2017-04-21] MEDS ORDERED: [UNRECOGNIZED DRUG - OTHER] IV ONE (22:00)
--- NOTE | 2017-04-21 22:30 | NUR ---
RN:TD: MIDLINE INSERTED AND IVIG STARTED PER DR BAEZA AND PHARMACIES ORDERS. GTT STARTED AT 50ML/HR THEN AFTER ONE HOUR MAY GO TO 100 THE 150ML/HR. PT EDUCATED REGARDING POC. VSS. PT CONTINUES TO HAVE EXERTIONAL SOB. PER DR BAEZA OK TO PERFORM CT ABD IN AM.
[2017-04-21 23:34] LABS: PROTHROMBIN TIME 11.4 SECS (9.5-12.7)
[2017-04-21 23:35] LABS: INR 1.1 (0.87-1.13)
[2017-04-21 23:36] LABS: D-DIMER 1.9 mg/L(FEU (0.17-0.50)
[2017-04-22] VITALS (10 sets, daily range): BP systolic 109–151; BP diastolic 41–81
[2017-04-22] MEDS ORDERED: MENTHOL/CETYLPYRD (CEPACOL) 1 LOZ LOZENGE PO PRN
--- NOTE | 2017-04-22 00:19 | NUR ---
RN:ICU: PT IMMUNOGLOBULIN RATE INCREASED TO 100ML/HR PER DR BAEZA AND PHARMACY'S ORDERS. PENDING COMPLETION OF IG INFUSION PRIOR TO GIVING LASIX AND 1 UNIT PRBC. WILL TITRATE TO 150ML/HR PT TOLERATES. PT SITTING ON EDGE OF BED COMFORTABLY WITH 3 L NC. WILL CONTINUE TO MONITOR CLOSELY. FALL PRECAUTIONS IN PLACE.
[2017-04-22] MEDS ORDERED: FUROSEMIDE 20 MG/2 ML VIAL IV PRN (02:00)
--- NOTE | 2017-04-22 05:28 | NUR ---
RN:TD: PT IVIG COMPLETE WITH OUT REACTION. PT ADMIN LASIX PER MD ORDERS FOLLOWING INFUSION. WILL TX 1 UNIT PRBC NOW. PT AWARE OF POC. WILL HOLD OFF AM LABS UNTIL 1 UNIT PRBC IS COMPLETE. VSS. WILL CONTINUE TO MONITOR CLOSELY.
[2017-04-22] MEDS: FOLIC ACID 1 MG TABLET PO SCH (08:31)
[2017-04-22] MEDS: LINAGLIPTIN 5 MG TABLET PO SCH ×2 (08:31→08:40)
[2017-04-22] MEDS: methylPREDNISolone SOD SUCC 125 MG/2ML VIAL IV SCH ×3 (08:31→16:51)
[2017-04-22] MEDS: FAMOTIDINE (20 MG) 20 MG TABLET PO SCH ×2 (08:31→21:00)
[2017-04-22] MEDS: BLOOD SUGAR DIAGNOSTIC 1 EACH STRIP IN SCH ×4 (08:32→21:29)
--- NOTE | 2017-04-22 08:33 | NUR ---
RN NOTES PT BLOOD SUGAR 138, PT REFUSED 2UNITS INSULIN PER SLIDING SCALE
--- NOTE | 2017-04-22 08:40 | NUR ---
RN NOTES PT DECIDED TO OKAY WITH 2 UNITS INSULIN AND PT REFUSED TRADJENTA. RISKS AND BENEFITS EXPLAINED, PT STILL REFUSED
[2017-04-22] MEDS: INSULIN REGULAR, HUMAN 100 UNIT/ML 3 ML VIAL SQ PRN ×4 (08:42→21:36)
[2017-04-22] MEDS: ISOSORBIDE DINITRATE (5MG) 5 MG TABLET PO PRN (08:44)
--- NOTE | 2017-04-22 11:24 | NUR ---
RN NOTES RECEIVED CALL FROM LAB THAT PT'S PLATELET COUNT IS CRITICAL 38 BUT UP FROM 37 YESTERDAY, GABY JUSTICE MADE AWARE. WILL CONTINUE TO MONITOR. Addendum: 04/22/17 at 1429 by LIBRA LAU RN CORRECTION: PLATELET LEVEL WENT -UP FROM 35 (NOT 37) YESTERDAY TO 38 TODAY.
[2017-04-22 11:33] LABS: BASOPHILS % (AUTO) 0.2 % (0.0-2.0); HEMATOCRIT 24 % (33-45); HEMOGLOBIN 8.3 g/dL (11.5-14.8); LYMPHOCYTES # (AUTO) 1.5 /CMM (0.8-4.8); LYMPHOCYTES % (AUTO) 20.1 % (20.0-44.0); MEAN CORPUSCULAR HEMOGLOBIN 33 PG (26.0-33.0); MEAN CORPUSCULAR HGB CONC 34 g/dl (31.0-36.0); MEAN CORPUSCULAR VOLUME 98 fL (82-100); MONOCYTES # (AUTO) 0.8 /CMM (0.1-1.30); MONOCYTES % (AUTO) 10.9 % (2.0-12.0); NEUTROPHILS # (AUTO) 5.2 /CMM (1.8-8.9); NEUTROPHILS % (AUTO) 68.8 % (43.0-81.0); RDW COEFFICIENT OF VARIATION 25.8 (11.5-15.0); RED BLOOD CELL COUNT(AUTO) 2.49 MIL/uL (4.0-5.2); WHITE BLOOD COUNT (AUTO) 7.5 K/uL (4.3-11.0)
[2017-04-22 11:34] LABS: CALCIUM, SERUM 8.8 mg/dL (8.5-10.1); CARBON DIOXIDE 24 mmol/L (21-32); CHLORIDE 105 mmol/L (98-107); CREATININE 1.3 mg/dL (0.6-1.3); GLUCOSE 138 mg/dL (74-106); POTASSIUM 4.1 mmol/L (3.5-5.1); SODIUM SERUM 137 mmol/L (136-145); UREA NITROGEN, BLOOD 52 mg/dL (7-18)
[2017-04-22 11:38] LABS: PLATELET COUNT (AUTO) 38 /CMM (150-450)
[2017-04-22 11:40] LABS: ALBUMIN 3.1 g/dL (3.4-5.0); BILIRUBIN,DIRECT 0.3 mg/dL (0.0-0.2); BILIRUBIN,TOTAL 1.3 mg/dL (0.2-1.0); MAGNESIUM 2.1 mg/dL (1.8-2.4); PHOSPHORUS 3.2 mg/dL (2.5-4.9); TOTAL PROTEIN, SERUM 8.3 g/dL (6.4-8.2)
[2017-04-22 12:21] LABS: BAND % (MANUAL) 3 % (0.0-5.0); LYMPHOCYTES % (MANUAL) 15 % (16-48); MONOCYTES % (MANUAL) 8 % (0-11.0); NEUTROPHILS % (MANUAL) 74 (42-76)
--- NOTE | 2017-04-22 18:53 | NUR ---
PREPRESS MANAGER CLOSING NOTES PATIENT AWAKE AND RESTING AT MODERATE HIGH BACKREST IN BED. A/O X4, SAME VERBALLY RESPONSIVE. ALL NEEDS AND CARE ATTENDED WELL. PT ON TELE-MONITORING WITH CURRENT READING OF SR AND HR OF 66, NO C/O CHESTPAIN VOICED. ON SUPPLEMENTAL 02 VIA N/C AT 2LPM, TOLERATING WELL WITH NO SOB NOTED, RESPIRATIONS EVEN AND UNLABORED. PAM MIDLINE G#18 INTACT AND PATENT. HOB ELEVATED. KEPT BED LOCKED AND AT LOWEST POSITION WITH SIDE-RAILS UP X2. CALL LIGHT WITHIN EASY REACH. ALL SAFETY PRECAUTIONS MAINTAINED. WILL ENDORSED TO ELECTRONIC HEALTH RECORDS SPECIALIST NURSE FOR LAURY.
--- NOTE | 2017-04-22 19:30 | NUR ---
NUTRITION HELPER INITIAL NOTES RECEIVED PATIENT AWAKE A/OX4, ABLE TO MAKE NEEDS KNOWN. DENIES PAIN OR DISCOMFORT. NO RESPIRATORY DISTRESS NOTED. SKIN WARM AND DRY TO TOUCH. ON TELE MONITOR SR. AMBULATORY WITH STEADY GAIT. SIDE RAILS UP AND LOCKED. BED KEPT AT LOWEST POSITION. CALL LIGHT KEPT WITHIN EASY REACH. WILL CONTINUE TO MONITOR.
[2017-04-23] VITALS: BP 144/45
[2017-04-23 04:00] VITALS: BP 143/48
[2017-04-23 07:08] LABS: BASOPHILS % (AUTO) 0.3 % (0.0-2.0); HEMATOCRIT 23 % (33-45); HEMOGLOBIN 7.8 g/dL (11.5-14.8); LYMPHOCYTES # (AUTO) 1.9 /CMM (0.8-4.8); LYMPHOCYTES % (AUTO) 28.8 % (20.0-44.0); MEAN CORPUSCULAR HEMOGLOBIN 34 PG (26.0-33.0); MEAN CORPUSCULAR HGB CONC 34 g/dl (31.0-36.0); MEAN CORPUSCULAR VOLUME 99 fL (82-100); MONOCYTES # (AUTO) 0.7 /CMM (0.1-1.30); NEUTROPHILS # (AUTO) 3.8 /CMM (1.8-8.9); NEUTROPHILS % (AUTO) 59.9 % (43.0-81.0); RDW COEFFICIENT OF VARIATION 25.8 (11.5-15.0); RED BLOOD CELL COUNT(AUTO) 2.32 MIL/uL (4.0-5.2); RETICULOCYTE COUNT 1.1 % (0.6-2.5); WHITE BLOOD COUNT (AUTO) 6.4 K/uL (4.3-11.0)
--- NOTE | 2017-04-23 07:15 | NUR ---
clerk telegraph service initial notes Received patient in bed, awake, head of bed elvated, no SOB or distress noted, on room air, alert and oriented x 4, verbally responsive and able to make needs known. PAM midline intact and patent. Kept patient clean and comfortable in bed, call light with in patient reach, will continue to monitor accordingly. on tele monitor SR heart rate of 60.
[2017-04-23 07:22] LABS: PLATELET COUNT (AUTO) 35 /CMM (150-450)
--- NOTE | 2017-04-23 07:37 | NUR ---
BRIM AND CROWN PRESSER CLOSING NOTES NO SIGNIFICANT CHANGES OVERNIGHT. ALL NEEDS ANTICIPATED AND MET. SOB ON EXERTION. TOLERATES ROOM AIR AT REST. DENIES PAIN OR DISCOMFORT. STATES SHE SLEPT BETTER. SKIN WARM AND DRY TO TOUCH. SIDE RAILS UP AND LOCKED. BED KEPT AT LOWEST POSITION. CALL LIGHT KEPT WITHIN EASY REACH. CONTINUITY OF CARE ENDORSED TO AM NURSE.
[2017-04-23 07:38] LABS: ALANINE AMINOTRANSFERASE 40 U/L (12-78); ALBUMIN 2.9 g/dL (3.4-5.0); ALKALINE PHOSPHATASE 59 U/L (46-116); ASPARTATE AMINOTRANSFERASE 22 U/L (15-37); BILIRUBIN,DIRECT 0.3 mg/dL (0.0-0.2); CALCIUM, SERUM 8.8 mg/dL (8.5-10.1); CARBON DIOXIDE 23 mmol/L (21-32); CHLORIDE 111 mmol/L (98-107); CREATININE 1.3 mg/dL (0.6-1.3); GLUCOSE 168 mg/dL (74-106); POTASSIUM 4.2 mmol/L (3.5-5.1); SODIUM SERUM 143 mmol/L (136-145); UREA NITROGEN, BLOOD 52 mg/dL (7-18)
[2017-04-23 08:00] VITALS: BP_SYST 167; BP_DIAS 58; BP_DIAS 60
[2017-04-23] MEDS: BLOOD SUGAR DIAGNOSTIC 1 EACH STRIP IN SCH ×4 (08:20→21:18)
[2017-04-23] MEDS: INSULIN REGULAR, HUMAN 100 UNIT/ML 3 ML VIAL SQ PRN ×4 (08:22→21:26)
[2017-04-23] MEDS: FAMOTIDINE (20 MG) 20 MG TABLET PO SCH ×2 (08:35→21:17)
[2017-04-23] MEDS: ATORVASTATIN 40 MG TABLET PO SCH (08:35)
[2017-04-23] MEDS: LINAGLIPTIN 5 MG TABLET PO SCH (08:35)
[2017-04-23] MEDS: methylPREDNISolone SOD SUCC 125 MG/2ML VIAL IV SCH ×3 (08:35→16:31)
[2017-04-23] MEDS: FOLIC ACID 1 MG TABLET PO SCH (08:36)
[2017-04-23 08:49] LABS: BAND % (MANUAL) 3 % (0.0-5.0); LYMPHOCYTES % (MANUAL) 31 % (16-48); MONOCYTES % (MANUAL) 12 % (0-11.0); NEUTROPHILS % (MANUAL) 54 (42-76)
[2017-04-23] MEDS: ISOSORBIDE DINITRATE (5MG) 5 MG TABLET PO PRN (09:17)
[2017-04-23 12:00] VITALS: BP 145/52
[2017-04-23 16:00] VITALS: BP_SYST 139; BP_DIAS 41; BP_DIAS 61
--- NOTE | 2017-04-23 19:12 | NUR ---
telecommunications repairer closing notes All needs provided, attended, and anticipated. Kept patient clean and comfortbale in bed, call light with in reach. Endorsed to next shift RN to continue care. On tele monitor SR heart rate of 61
[2017-04-23 20:00] VITALS: BP 126/41
--- NOTE | 2017-04-23 20:00 | NUR ---
TELE 1 RN NOTE PT RECEIVED SITTING ON SIDE OF THE BED. A/A/O X 4, NO SOB, NO DISTRESS OR DISCOMFORT NOTED. DENIES PAIN. PAM WITH MIDLINE INTACT AND PATENT. ON TELE SR WITH OCCASIONAL PVC HR 73. ALL NEEDS ATTENDED. SIDE RAILS UP X 2 AND CALL LIGHT WITHIN REACH. VSS. CONTINUE TO MONITOR HIM.
[2017-04-24] VITALS: BP 127/38
[2017-04-24 04:07] VITALS: BP 130/49
[2017-04-24] MEDS: BLOOD SUGAR DIAGNOSTIC 1 EACH STRIP IN SCH ×4 (05:36→21:57)
[2017-04-24] MEDS: INSULIN REGULAR, HUMAN 100 UNIT/ML 3 ML VIAL SQ PRN ×4 (06:53→21:54)
[2017-04-24 07:07] LABS: ALANINE AMINOTRANSFERASE 42 U/L (12-78); ALBUMIN 2.8 g/dL (3.4-5.0); ALKALINE PHOSPHATASE 54 U/L (46-116); ASPARTATE AMINOTRANSFERASE 35 U/L (15-37); BILIRUBIN,DIRECT 0.2 mg/dL (0.0-0.2); CALCIUM, SERUM 8.5 mg/dL (8.5-10.1); CARBON DIOXIDE 22 mmol/L (21-32); CHLORIDE 110 mmol/L (98-107); CREATININE 1.4 mg/dL (0.6-1.3); GLUCOSE 180 mg/dL (74-106); POTASSIUM 4.5 mmol/L (3.5-5.1); SODIUM SERUM 141 mmol/L (136-145); TOTAL PROTEIN, SERUM 7.6 g/dL (6.4-8.2); UREA NITROGEN, BLOOD 53 mg/dL (7-18)
--- NOTE | 2017-04-24 07:07 | NUR ---
TELE 1 RN NOTE PT IN BED AWAKE. NO DISTRESS OR DISCOMFORT NOTED. DENIES PAIN. MID LINE PAM INTACT AND PATENT. SIDE RAILS UP X 3 AND CALL LIGHT WITHIN REACH. ENDORSE TO DAY SHIFT NURSE FOR CONTINUE TO CARE.
--- NOTE | 2017-04-24 07:42 | NUR ---
MANUFACTURING QUALITY TECHNICIAN/OPENING NOTES RECEIVED PT. SITTING UP IN BED A&OX4. BREATHING UNLABORED, AND EVENLY ON OXYGEN ON 3L/MIN WITH COOL AEROSOL. NO S/S OF ACUTE DISTRESS. PT. HAS A LEFT UPPER ARM MIDLINE PATENT AND INTACT WITH SALINE FLUSH. BED IS IN LOWEST AND LOCKED POSITION. 2 SIDE RAILS UP. INSTRUCTED PT. TO USE CALL LIGHT FOR ASSISTANCE. ALL NEEDS MET. WILL CONTINUE TO ASSESS AND MONITOR.
[2017-04-24 07:47] LABS: INR 1.07 (0.87-1.13); PROTHROMBIN TIME 11.1 SECS (9.5-12.7)
[2017-04-24 07:58] LABS: BASOPHILS % (AUTO) 0.3 % (0.0-2.0); HEMATOCRIT 21 % (33-45); HEMOGLOBIN 7.1 g/dL (11.5-14.8); LYMPHOCYTES # (AUTO) 1.5 /CMM (0.8-4.8); LYMPHOCYTES % (AUTO) 26.5 % (20.0-44.0); MEAN CORPUSCULAR HEMOGLOBIN 33 PG (26.0-33.0); MEAN CORPUSCULAR HGB CONC 33 g/dl (31.0-36.0); MEAN CORPUSCULAR VOLUME 99 fL (82-100); MONOCYTES # (AUTO) 0.7 /CMM (0.1-1.30); MONOCYTES % (AUTO) 11.6 % (2.0-12.0); NEUTROPHILS # (AUTO) 3.5 /CMM (1.8-8.9); NEUTROPHILS % (AUTO) 61.6 % (43.0-81.0); RDW COEFFICIENT OF VARIATION 25.8 (11.5-15.0); RED BLOOD CELL COUNT(AUTO) 2.15 MIL/uL (4.0-5.2); WHITE BLOOD COUNT (AUTO) 5.7 K/uL (4.3-11.0)
[2017-04-24 08:00] VITALS: BP 142/58
[2017-04-24 08:02] LABS: PLATELET COUNT (AUTO) 30 /CMM (150-450)
--- NOTE | 2017-04-24 08:30 | NUR ---
RN NOTES WAFER POLISHING LEAD WORKER WAS MADE AWARE OF PT.'S LOW PLATELET COUNT NO TRANSFUSION ORDERED AT THIS TIME.
[2017-04-24 08:33] LABS: RETICULOCYTE COUNT 1.5 % (0.6-2.5)
[2017-04-24] MEDS: FOLIC ACID 1 MG TABLET PO SCH (08:47)
[2017-04-24] MEDS: LINAGLIPTIN 5 MG TABLET PO SCH (08:47)
[2017-04-24] MEDS: FAMOTIDINE (20 MG) 20 MG TABLET PO SCH ×2 (08:48→21:30)
[2017-04-24] MEDS: ISOSORBIDE DINITRATE (5MG) 5 MG TABLET PO PRN (08:48)
[2017-04-24] MEDS: methylPREDNISolone SOD SUCC 125 MG/2ML VIAL IV SCH ×3 (08:52→18:01)
[2017-04-24 10:02] LABS: LYMPHOCYTES % (MANUAL) 32 % (16-48); MONOCYTES % (MANUAL) 3 % (0-11.0); NEUTROPHILS % (MANUAL) 65 (42-76)
[2017-04-24 11:59] VITALS: BP 127/41
--- NOTE | 2017-04-24 12:50 | NUR ---
RN NOTES DR. BAEZA CALLED TO ASK ABOUT PT.'S LABS. REPORTED PT.'S PLATELET COUNT AND HEMOGLOBIN LEVELS. PER DR. BAEZA CONTINUE TO OBSERVE AND NO NEW ORDERS GIVEN.
[2017-04-24 16:00] VITALS: BP 96/60
--- NOTE | 2017-04-24 16:30 | NUR ---
RN NOTES LAB CALLED TO REPORT CRITICAL LAB VALUES FOR PLATELET 35,000, HGB 7.9, AND HCT 22. COMPUTER GRAPHIC DESIGNER WAS NOTIFIED AND NO NEW ORDERS GIVEN.
[2017-04-24 16:34] LABS: BASOPHILS % (AUTO) 0.1 % (0.0-2.0); EOSINOPHILS % (AUTO) 0.1 % (0.0-6.0); HEMATOCRIT 22 % (33-45); HEMOGLOBIN 7.9 g/dL (11.5-14.8); LYMPHOCYTES % (AUTO) 14.3 % (20.0-44.0); MEAN CORPUSCULAR HEMOGLOBIN 34 PG (26.0-33.0); MEAN CORPUSCULAR HGB CONC 35 g/dl (31.0-36.0); MEAN CORPUSCULAR VOLUME 98 fL (82-100); MONOCYTES # (AUTO) 0.5 /CMM (0.1-1.30); MONOCYTES % (AUTO) 7.1 % (2.0-12.0); NEUTROPHILS # (AUTO) 5.4 /CMM (1.8-8.9); NEUTROPHILS % (AUTO) 78.4 % (43.0-81.0); RDW COEFFICIENT OF VARIATION 24.2 (11.5-15.0); RED BLOOD CELL COUNT(AUTO) 2.29 MIL/uL (4.0-5.2); WHITE BLOOD COUNT (AUTO) 6.9 K/uL (4.3-11.0)
[2017-04-24 16:41] LABS: PLATELET COUNT (AUTO) 35 /CMM (150-450)
[2017-04-24 17:20] LABS: BAND % (MANUAL) 8 % (0.0-5.0); LYMPHOCYTES % (MANUAL) 18 % (16-48); MONOCYTES % (MANUAL) 6 % (0-11.0); NEUTROPHILS % (MANUAL) 68 (42-76)
--- NOTE | 2017-04-24 18:41 | NUR ---
AUTOMOBILE MECHANIC RADIATOR/CLOSING NOTES PT. IS SITTING UP IN BED A&OX4. BREATHING UNLABORED, AND EVENLY ON OXYGEN ON 3L/MIN WITH COOL AEROSOL. NO S/S OF ACUTE DISTRESS. PT. HAS A LEFT UPPER ARM MIDLINE PATENT AND INTACT WITH SALINE FLUSH SALINE LOCKED. CHEST X RAY WAS ORDERED TO EXAMINE FOR FLUID CONGESTION. BED IS IN LOWEST AND LOCKED POSITION. 2 SIDE RAILS UP. INSTRUCTED PT. TO USE CALL LIGHT FOR ASSISTANCE. ALL NEEDS MET. WILL ENDORSE REPORT TO NURSE.
--- NOTE | 2017-04-24 19:47 | NUR ---
TELE 1 RN NOTE PT SITTING UP ON SIDE OF THE BED. A/O X 3, NO SOB, NO DISTRESS OR DISCOMFORT NOTED. DENIES PAIN. ON TELE SR WITH BBB HR 73. ON 2 L VIA N/C O2 SAT 95%. PT IS AMBULATORY WITH STEADY GAIT. NO S/S OF HYPO OR HYPERGLYCEMIA NOTED. PAM WITH MIDLINE INTACT AND PATENT. SIDE RAILS UP X 2 AND CALL LIGHT WITHIN REACH. FAMILY AT BED SIDE. VSS. CONTINUE TO MONITOR HER.
[2017-04-24 20:00] VITALS: BP 103/46
[2017-04-25 00:01] VITALS: BP 134/44
[2017-04-25 04:00] VITALS: BP_SYST 115; BP_SYST 146; BP_DIAS 44
--- NOTE | 2017-04-25 06:36 | NUR ---
TELE 1 RN NOTE PT AWAKE. SITTING UP IN BED. NO CHANGE IN CONDITION DURING THE SHIFT. PAM MID LINE INTACT AND PATENT. ON TELE SR HR 69. SIDE RAILS UP X 2 AND CALL LIGHT WITHIN REACH. WILL ENDORSE TO DAY SHIFT NURSE FOR CONTINUE TO CARE.
[2017-04-25] MEDS: INSULIN REGULAR, HUMAN 100 UNIT/ML 3 ML VIAL SQ PRN (07:32)
[2017-04-25] MEDS: BLOOD SUGAR DIAGNOSTIC 1 EACH STRIP IN SCH ×2 (07:32→12:34)
--- NOTE | 2017-04-25 07:41 | NUR ---
FIELD ARTILLERY OPERATIONS MAN NOTES RECEIVED PT ON BED A/O X 4. ON NASAL CANNULA 2LPM TOLERATING WELL. PAM MIDLINE ON SIGN OF INFECTION OR PAIN. ON TELE MONITOR SR 73 WITH BBB. CALL LIGHT WITHIN REACH. HEAD OF BED ELEVATED. SIDE RAILS UP. WILL CONTINUE TO MONITOR PT CLOSELY.
[2017-04-25 08:00] VITALS: BP 145/50
[2017-04-25] MEDS: LINAGLIPTIN 5 MG TABLET PO SCH (08:45)
[2017-04-25] MEDS: ATORVASTATIN 40 MG TABLET PO SCH (08:45)
[2017-04-25] MEDS: FAMOTIDINE (20 MG) 20 MG TABLET PO SCH (08:46)
[2017-04-25] MEDS: FOLIC ACID 1 MG TABLET PO SCH (08:46)
--- NOTE | 2017-04-25 09:27 | NUR ---
DRAPERY SEAMSTRESS NOTES PT REFUSED ATORVASTATIN AND TRADJENTA. EXPLAINED RISK AND BENEFITS OF THE MEDICATIONS.
[2017-04-25 09:47] VITALS: BP 165/53
[2017-04-25] MEDS: methylPREDNISolone SOD SUCC 125 MG/2ML VIAL IV SCH ×2 (10:01→12:37)
[2017-04-25 12:00] VITALS: BP 153/59
[2017-04-26 05:09] LABS: COMPLEMENT C3, SERUM 61 mg/dL (82-167); COMPLEMENT C4, SERUM <2 mg/dL (14-44)
== END 2017-04-25 13:15 | disposition home or self-care (01) | DRG 840 ==
LOC: ER 22:07 → TELE-TD 04-19 00:11 → TELE1 04-21 13:52
PROC: 30233N1 Transfusion of Nonautologous Red Blood Cells into Peripheral Vein, Percutaneous Approach (ICD-10-PCS; 2017-04-18)
PROC: 05H633Z Insertion of Infusion Device into Left Subclavian Vein, Percutaneous Approach (ICD-10-PCS; principal; 2017-04-21)
DX: C85.90 Non-Hodgkin lymphoma, unspecified, unspecified site (principal); N17.0 Acute kidney failure with tubular necrosis; I50.33 Acute on chronic diastolic (congestive) heart failure; D61.818 Other pancytopenia; E11.22 Type 2 diabetes mellitus with diabetic chronic kidney disease; D58.9 Hereditary hemolytic anemia, unspecified; D68.59 Other primary thrombophilia; D69.59 Other secondary thrombocytopenia; E44.1 Mild protein-calorie malnutrition; M84.48XA Pathological fracture, other site, initial encounter for fracture; I13.0 Hypertensive heart and chronic kidney disease with heart failure and stage 1 through stage 4 chronic kidney disease, or unspecified chronic kidney disease; I11.0 Hypertensive heart disease with heart failure; Z95.5 Presence of coronary angioplasty implant and graft; Z95.2 Presence of prosthetic heart valve; Z91.19 Patient's noncompliance with other medical treatment and regimen; Z90.710 Acquired absence of both cervix and uterus; Z79.899 Other long term (current) drug therapy; Z79.84 Long term (current) use of oral hypoglycemic drugs; Z82.49 Family history of ischemic heart disease and other diseases of the circulatory system; Z79.82 Long term (current) use of aspirin; F41.9 Anxiety disorder, unspecified; I25.10 Atherosclerotic heart disease of native coronary artery without angina pectoris; J44.9 Chronic obstructive pulmonary disease, unspecified; G47.33 Obstructive sleep apnea (adult) (pediatric); E78.5 Hyperlipidemia, unspecified; N18.9 Chronic kidney disease, unspecified; K59.00 Constipation, unspecified; K21.9 Gastro-esophageal reflux disease without esophagitis; E66.9 Obesity, unspecified; Z88.5 Allergy status to narcotic agent; Z88.8 Allergy status to other drugs, medicaments and biological substances; T44.5X5A Adverse effect of predominantly beta-adrenoreceptor agonists, initial encounter; Y92.009 Unspecified place in unspecified non-institutional (private) residence as the place of occurrence of the external cause; D63.8 Anemia in other chronic diseases classified elsewhere; I48.91 Unspecified atrial fibrillation; E11.65 Type 2 diabetes mellitus with hyperglycemia; D47.2 Monoclonal gammopathy; B19.20 Unspecified viral hepatitis C without hepatic coma; F32.9 Major depressive disorder, single episode, unspecified; K76.0 Fatty (change of) liver, not elsewhere classified
CPT/HCPCS: 36415; 36600; 71010-TC; 76700-TC; 80048-TC; 80053-TC; 80076-TC; 82247-TC; 82248-TC; 82746; 82803-TC; 82962-TC; 83010; 83540-TC; 83605-TC; 83615-TC; 83735-TC; 83880; 84100-TC; 84439-TC; 84443-TC; 84484-TC; 85025-TC; 85027-TC; 85045-TC; 85385-TC; 85396; 85610-TC; 85730-TC; 86162; 86706; 86803; 86850-TC; 86880-TC; 86921-TC; 87081-TC; 87340; A4217; A4606; J1566; J1650; J1815; J1940; J2930; J7050; P9016-BL; Z7610

== ENCOUNTER 2017-06-16 12:12 | Emergency (ER) | payer MEDICARE, OTHER ==
[~2017-06-16] VITALS: Ht 152.4 cm; Wt 77.1 kg
[~2017-06-16 12:12] MED LIST changes: -PRED20TA PO; -PRED5TAB48 PO; -VALS160T24 PO; +VALS160T29 PO
--- NOTE | 2017-06-16 12:20 | NUR ---
PATIENT TO ED- SENT BY MD SULLIVAN DT SOB AND BLE SWELLING,. PATIENT IS AWAKE ND ALERT, SATING WELL ON ROOM AIR. HOWEVER PATIENT IS COMPLAINING SOB. PATIENT IS AFEBRILE. NON DIAPHORETIC. GOWNED PT AND PLACED ON TELE MONITOR. MD AT BEDSIDE
[2017-06-16] MEDS ORDERED: ONDANSETRON HCL/PF 4 MG/2 ML VIAL ONE (12:24)
[2017-06-16] MEDS ORDERED: ONDANSETRON 4 MG TAB.RAPDIS PO ONE (12:30)
[2017-06-16 12:34] LABS: BASOPHILS # (AUTO) 0.1 /CMM (0.0-0.2); BASOPHILS % (AUTO) 0.9 % (0.0-2.0); HEMATOCRIT 34 % (33-45); HEMOGLOBIN 12.1 g/dL (11.5-14.8); LYMPHOCYTES # (AUTO) 1.7 /CMM (0.8-4.8); LYMPHOCYTES % (AUTO) 28.2 % (20.0-44.0); MEAN CORPUSCULAR HGB CONC 35 g/dl (31.0-36.0); MEAN CORPUSCULAR VOLUME 107 fL (82-100); MONOCYTES # (AUTO) 0.6 /CMM (0.1-1.30); MONOCYTES % (AUTO) 9.4 % (2.0-12.0); NEUTROPHILS # (AUTO) 3.8 /CMM (1.8-8.9); NEUTROPHILS % (AUTO) 61.5 % (43.0-81.0); PLATELET COUNT (AUTO) 80 /CMM (150-450); RDW COEFFICIENT OF VARIATION 15.7 (11.5-15.0); RED BLOOD CELL COUNT(AUTO) 3.21 MIL/uL (4.0-5.2); WHITE BLOOD COUNT (AUTO) 6.1 K/uL (4.3-11.0)
[2017-06-16 12:59] LABS: BAND % (MANUAL) 5 % (0.0-5.0); LYMPHOCYTES % (MANUAL) 35 % (16-48); MONOCYTES % (MANUAL) 7 % (0-11.0); NEUTROPHILS % (MANUAL) 52 (42-76); REACTIVE LYMPHOCYTES 1 % (0-0)
[2017-06-16 13:06] LABS: INR 0.98 (0.87-1.13)
--- NOTE | 2017-06-16 13:47 | NUR ---
REPORT GIVEN TO FLOOR RN
--- NOTE | 2017-06-16 13:50 | NUR ---
REPORT GIVEN TO SHAWN HEADLEY FOR LAURY
[2017-06-16] MEDS ORDERED: INSU100V30 SQ (13:52)
[2017-06-16 14:38] LABS: TROPONIN I 0.058 ng/mL (0.00-0.056)
[2017-06-16 14:43] LABS: ALANINE AMINOTRANSFERASE 29 U/L (12-78); ALBUMIN 3.8 g/dL (3.4-5.0); ALKALINE PHOSPHATASE 65 U/L (46-116); ASPARTATE AMINOTRANSFERASE 23 U/L (15-37); B-TYPE NATRIURETIC PEPTIDE 5573 PG/ML (0-125); BILIRUBIN,DIRECT 0.2 mg/dL (0.0-0.2); BILIRUBIN,TOTAL 0.8 mg/dL (0.2-1.0); CALCIUM, SERUM 10.8 mg/dL (8.5-10.1); CARBON DIOXIDE 29 mmol/L (21-32); CHLORIDE 92 mmol/L (98-107); CREATININE 1.8 mg/dL (0.6-1.3); GLUCOSE 108 mg/dL (74-106); POTASSIUM 3.9 mmol/L (3.5-5.1); SODIUM SERUM 134 mmol/L (136-145); TOTAL PROTEIN, SERUM 7.4 g/dL (6.4-8.2); UREA NITROGEN, BLOOD 46 mg/dL (7-18)
--- NOTE | 2017-06-16 14:52 | NUR ---
Patient does not wish to proceed with medical care recommended by Dr. Robin. Patient given information related to possible complications, up to and including , which could occur as a result of leaving the hospital at this time. Patient verbalizes understanding of risks involved due to leaving against medical advice. Patient has signed AMA form.
[2017-06-16 14:53] VITALS: BP 122/60
[2017-11-23] MEDS ORDERED: TRAM50TA2 PO (13:27)
[2017-11-23] MEDS ORDERED: IV CHEMO IV (13:28)
[2017-11-23] MEDS ORDERED: RITU10VI IV (14:17)
== END 2017-06-16 14:54 | disposition left against medical advice (07) ==
LOC: ER 12:15 → UNDOADMIN 13:43 → TELE 13:43
DX: R06.02 Shortness of breath (principal); I11.0 Hypertensive heart disease with heart failure; I50.9 Heart failure, unspecified; Z88.5 Allergy status to narcotic agent; Z88.6 Allergy status to analgesic agent; Z88.8 Allergy status to other drugs, medicaments and biological substances; E11.9 Type 2 diabetes mellitus without complications; Z90.710 Acquired absence of both cervix and uterus; Z79.82 Long term (current) use of aspirin; Z79.4 Long term (current) use of insulin
CPT/HCPCS: 36415; 71045-TC; 80048-TC; 80076-TC; 83605-TC; 83880; 84484-TC; 85025-TC; 85730-TC; 87040-TC; 93970-TC; A4606; J2405; Z7610

== ENCOUNTER 2017-08-30 12:46 | Outpatient (CLI) | payer MEDICARE, OTHER ==
[~2017-08-30 12:46] MED LIST changes: -ASPI-1169 PO; +INSU100V30 SQ; -LINA145C PO; -NATE120T6 PO; -TICA90TA PO
[2017-11-23] MEDS ORDERED: TRAM50TA2 PO (13:27)
[2017-11-23] MEDS ORDERED: IV CHEMO IV (13:28)
[2017-11-23] MEDS ORDERED: RITU10VI IV (14:17)
== END 2017-08-30 23:59 | disposition home or self-care (01) ==
LOC: ER 12:46
PROVIDERS: ATTEND Internal Medicine Hematology & Oncology
DX: Z45.2 Encounter for adjustment and management of vascular access device (principal); J45.909 Unspecified asthma, uncomplicated; I13.11 Hypertensive heart and chronic kidney disease without heart failure, with stage 5 chronic kidney disease, or end stage renal disease; E11.22 Type 2 diabetes mellitus with diabetic chronic kidney disease; N18.6 End stage renal disease; F41.9 Anxiety disorder, unspecified; Z90.710 Acquired absence of both cervix and uterus; Z95.5 Presence of coronary angioplasty implant and graft; Z79.4 Long term (current) use of insulin; Z79.899 Other long term (current) drug therapy; Z80.8 Family history of malignant neoplasm of other organs or systems; Z83.3 Family history of diabetes mellitus
CPT/HCPCS: 36569; 71045-TC; C1751

== ENCOUNTER 2017-09-16 13:54 | Emergency (ER) | payer MEDICARE, OTHER ==
[~2017-09-16] VITALS: Ht 152.4 cm; Wt 87.5 kg
--- NOTE | 2017-09-16 13:58 | NUR ---
SOY 87 FROM HOME C/O COUGH/CONGESTION. STATING SHE GOT SICK FROM FAMILY, CURRENTLY ON LYMPHOMA TREATMENT. PICC LINE PRESENT ON LEFT UPPER ARM. A/OX 3. BREATHING EVEN AND UNALBORED. FEELS SHORT OF BREATH, BUT NO DISTRESS NOTED. VITALS STABLE. SAFETY AND COMFORT MEASURES IN PLACE. AWAITING MD ORDERS.
[2017-09-16] MEDS ORDERED: LEVOFLOXACIN 750 MG /D5W 150ML 0 ML IV ONE (14:43)
--- NOTE | 2017-09-16 14:50 | NUR ---
BLOOD DRAWN FROM PICC LINE AND SENT TO LAB.
[2017-09-16 14:55] LABS: BASOPHILS % (AUTO) 0.4 % (0.0-2.0); EOSINOPHILS % (AUTO) 1.1 % (0.0-6.0); HEMATOCRIT 29 % (33-45); HEMOGLOBIN 10.2 g/dL (11.5-14.8); LYMPHOCYTES % (AUTO) 17.9 % (20.0-44.0); MEAN CORPUSCULAR HGB CONC 35 g/dl (31.0-36.0); MEAN CORPUSCULAR VOLUME 94 fL (82-100); MONOCYTES # (AUTO) 0.9 /CMM (0.1-1.30); MONOCYTES % (AUTO) 7.9 % (2.0-12.0); NEUTROPHILS % (AUTO) 72.7 % (43.0-81.0); PLATELET COUNT (AUTO) 165 /CMM (150-450); RDW COEFFICIENT OF VARIATION 15.1 (11.5-15.0)
--- NOTE | 2017-09-16 15:00 | NUR ---
URINE OBTAINED AND SENT TO LAB.
[2017-09-16] MEDS: LEVOFLOXACIN 750 MG /D5W 150ML 150 ML IV ONE (15:03)
--- NOTE | 2017-09-16 15:03 | NUR ---
PATIENT STATING SHE TOOK ORAL LEVAQUIN 500MG AT HOME TODAY. MD INFORMED, STATED TO CANCEL IV LEVAQUIN.
[2017-09-16 15:06] LABS: CALCIUM, SERUM 8.9 mg/dL (8.5-10.1); CARBON DIOXIDE 25 mmol/L (21-32); CHLORIDE 103 mmol/L (98-107); GLUCOSE 111 mg/dL (74-106); POTASSIUM 4.4 mmol/L (3.5-5.1); SODIUM SERUM 137 mmol/L (136-145); UREA NITROGEN, BLOOD 25 mg/dL (7-18)
[2017-09-16 15:13] LABS: TROPONIN I < 0.017 ng/mL (0.00-0.056)
[2017-09-16] MEDS: CEFTRIAXONE 1GM BAG (ER ONLY) 1 GM/50 ML PIGGYBACK IV ONE (15:15)
--- NOTE | 2017-09-16 15:15 | NUR ---
US TECH AT BEDSIDE.
[2017-09-16 15:18] LABS: ALANINE AMINOTRANSFERASE 28 U/L (12-78); ALBUMIN 3.2 g/dL (3.4-5.0); ALKALINE PHOSPHATASE 88 U/L (46-116); ASPARTATE AMINOTRANSFERASE 16 U/L (15-37); B-TYPE NATRIURETIC PEPTIDE 1557 PG/ML (0-125); BILIRUBIN,DIRECT 0.1 mg/dL (0.0-0.2); BILIRUBIN,TOTAL 0.5 mg/dL (0.2-1.0); TOTAL PROTEIN, SERUM 6.4 g/dL (6.4-8.2)
[2017-09-16] MEDS ORDERED: CEFTRIAXONE 1GM BAG (ER ONLY) 50 ML IV ONE (15:25)
--- NOTE | 2017-09-16 15:45 | NUR ---
Late entry: rebeca end time 1545, left upper arm picc line. Tolerated well. unable to chart in spreadsheet.
[2017-09-16] MEDS ORDERED: ASPI-1169 PO (15:55)
[2017-09-16] MEDS ORDERED: NITR0.4T48 SL (15:55)
[2017-09-16] MEDS ORDERED: CARV12.5 PO (15:55)
[2017-09-16] MEDS ORDERED: ACETAMINOPHEN ES 500 MG TABLET ONE (16:06)
[2017-09-16 16:15] VITALS: BP 153/67
--- NOTE | 2017-09-16 16:25 | NUR ---
PATIENT LEFT AMA, DESPITE EXPLANATION OF RISKS AND CONSEQUENCES. AMA FORM SIGNED, PRESCRIPTION GIVEN. PATIENT LEFT AMBULATORY WITH DAUGHTER WITH PREVIOUS PICC LINE INTACT.
[2017-09-16] MEDS ORDERED: ACETAMINOPHEN ES 500 MG TABLET PO ONE (16:30)
[2017-11-23] MEDS ORDERED: TRAM50TA2 PO (13:27)
[2017-11-23] MEDS ORDERED: IV CHEMO IV (13:28)
[2017-11-23] MEDS ORDERED: RITU10VI IV (14:17)
== END 2017-09-16 16:23 | disposition left against medical advice (07) ==
LOC: ER 13:56
DX: I11.0 Hypertensive heart disease with heart failure (principal); I50.9 Heart failure, unspecified; J40 Bronchitis, not specified as acute or chronic; D64.9 Anemia, unspecified; E11.9 Type 2 diabetes mellitus without complications; Z45.2 Encounter for adjustment and management of vascular access device; Z79.82 Long term (current) use of aspirin; Z85.72 Personal history of non-Hodgkin lymphomas; Z88.5 Allergy status to narcotic agent; Z95.5 Presence of coronary angioplasty implant and graft; Z88.8 Allergy status to other drugs, medicaments and biological substances; Z53.20 Procedure and treatment not carried out because of patient's decision for unspecified reasons
CPT/HCPCS: 36415; 71045; 80048; 80076; 83605; 83880; 84484; 85025; 85730; 87040 ×2; 93005; 96365; 99285; A4606; J0696; J1956; Z7610

== ENCOUNTER 2017-10-09 15:49 | Inpatient (IN) | payer MEDICARE, OTHER ==
[~2017-10-09] VITALS: Ht 165.1 cm; Wt 83.0 kg
[~2017-10-09 15:49] MED LIST changes: +ASPI-1169 PO; +CARV12.5 PO; -DILT240T12 PO; -INSU100V30 SQ; -ISOS5TAB3 PO; +NITR0.4T48 SL
--- NOTE | 2017-10-09 15:55 | NUR ---
PATIENT TO NEDA DT MID BACK PAIN X 3 DAYS, DENIES ANY INJURY. VSS
[2017-10-09] MEDS ORDERED: LORAZEPAM 1 MG TABLET ONE (16:11)
[2017-10-09] MEDS ORDERED: TRAMADOL HCL 50 MG TABLET ONE (16:11)
[2017-10-09] MEDS ORDERED: TRAMADOL HCL 50 MG TABLET PO ONE ×2 (16:30→18:00)
[2017-10-09] MEDS ORDERED: LORAZEPAM 1 MG TABLET PO ONE (16:30)
[2017-10-09 16:35] LABS: BASOPHILS % (AUTO) 0.2 % (0.0-2.0); EOSINOPHILS % (AUTO) 1.7 % (0.0-6.0); HEMATOCRIT 32 % (33-45); HEMOGLOBIN 10.6 g/dL (11.5-14.8); LYMPHOCYTES # (AUTO) 2.8 /CMM (0.8-4.8); MEAN CORPUSCULAR HGB CONC 34 g/dl (31.0-36.0); MEAN CORPUSCULAR VOLUME 97 fL (82-100); MONOCYTES # (AUTO) 0.9 /CMM (0.1-1.30); MONOCYTES % (AUTO) 10.2 % (2.0-12.0); NEUTROPHILS # (AUTO) 4.9 /CMM (1.8-8.9); NEUTROPHILS % (AUTO) 55.9 % (43.0-81.0); PLATELET COUNT (AUTO) 184 /CMM (150-450); RDW COEFFICIENT OF VARIATION 15.9 (11.5-15.0); RED BLOOD CELL COUNT(AUTO) 3.26 MIL/uL (4.0-5.2); WHITE BLOOD COUNT (AUTO) 8.8 K/uL (4.3-11.0)
[2017-10-09 16:49] LABS: INR 1.03 (0.87-1.13)
[2017-10-09 17:07] LABS: CALCIUM, SERUM 9.4 mg/dL (8.5-10.1); CARBON DIOXIDE 25 mmol/L (21-32); CHLORIDE 107 mmol/L (98-107); GLUCOSE 103 mg/dL (74-106); POTASSIUM 3.7 mmol/L (3.5-5.1); SODIUM SERUM 144 mmol/L (136-145); UREA NITROGEN, BLOOD 18 mg/dL (7-18)
[2017-10-09 17:14] LABS: TROPONIN I < 0.017 ng/mL (0.00-0.056)
[2017-10-09 17:20] LABS: B-TYPE NATRIURETIC PEPTIDE 1506 PG/ML (0-125)
--- NOTE | 2017-10-09 18:23 | NUR ---
REPORT GIVEN TO OSCAR ESCOBAR FOR TELE 102.
[2017-10-09] MEDS ORDERED: DILT240C2 PO (18:48)
[2017-10-09] MEDS ORDERED: FURO40TA5 PO (18:48)
[2017-10-09] MEDS ORDERED: INSU100V30 SQ (18:48)
[2017-10-09] MEDS ORDERED: ONDANSETRON HCL/PF 4 MG/2 ML VIAL IVP PRN (19:30)
[2017-10-09] MEDS ORDERED: ZOLPIDEM TARTRATE 5 MG TABLET PO PRN (19:30)
[2017-10-09] MEDS ORDERED: MAGNESIUM HYDROXIDE 30 ML UDC PO PRN (19:30)
[2017-10-09] MEDS ORDERED: MAG HYDROX/AL HYDROX/SIMETH 30 ML UDC PO PRN (19:30)
[2017-10-09] MEDS ORDERED: Z GUARD REMEDY 2 OZ OINT TP PRN (19:30)
[2017-10-09] MEDS ORDERED: hydrALAZINE HCL 25 MG TABLET PO PRN (19:30)
[2017-10-09] MEDS ORDERED: KETOROLAC TROMETHAMINE INJ 30 MG/ML VIAL IM PRN (19:30)
[2017-10-09] MEDS ORDERED: LORAZEPAM 1 MG TABLET PO PRN (19:30)
[2017-10-09] MEDS ORDERED: DEXTROSE 50%-WATER 50 ML DISP.SYRIN IV PRN (19:30)
[2017-10-09 19:56] LABS: ALBUMIN 3.7 g/dL (3.4-5.0); BILIRUBIN,DIRECT 0.1 mg/dL (0.0-0.2); BILIRUBIN,TOTAL 0.5 mg/dL (0.2-1.0); TOTAL PROTEIN, SERUM 6.8 g/dL (6.4-8.2)
[2017-10-09 20:00] VITALS: BP 151/53
[2017-10-09] MEDS: DILTIAZEM HCL CD 240 MG PO SCH (21:04)
[2017-10-09] MEDS: HYDROCODONE/APAP 5/325MG 1 EACH TABLET PO PRN (21:05)
[2017-10-09] MEDS: BLOOD SUGAR DIAGNOSTIC 1 EACH STRIP IN SCH (21:10)
[2017-10-09] MEDS: INSULIN REGULAR, HUMAN 100 UNIT/ML 3 ML VIAL SQ PRN (21:11)
--- NOTE | 2017-10-09 21:11 | NUR ---
RN NOTES @21:00 PATIENT REFUSED INSULIN COVERAGE AT THIS TIME FOR BLOOD GLUCOSE OF 153. EXPLAINED RISKS AND BENEFITS AND STILL REFUSED.
[2017-10-10] VITALS (7 sets, daily range): BP systolic 98–153; BP diastolic 47–71
[2017-10-10] MEDS: BLOOD SUGAR DIAGNOSTIC 1 EACH STRIP IN SCH ×6 (00:54→20:58)
[2017-10-10] MEDS: INSULIN REGULAR, HUMAN 100 UNIT/ML 3 ML VIAL SQ PRN ×2 (00:55→09:49)
[2017-10-10 06:12] LABS: BASOPHILS % (AUTO) 0.3 % (0.0-2.0); EOSINOPHILS % (AUTO) 2.2 % (0.0-6.0); HEMATOCRIT 30 % (33-45); HEMOGLOBIN 10.3 g/dL (11.5-14.8); LYMPHOCYTES # (AUTO) 2.8 /CMM (0.8-4.8); MEAN CORPUSCULAR HGB CONC 34 g/dl (31.0-36.0); MEAN CORPUSCULAR VOLUME 98 fL (82-100); MONOCYTES % (AUTO) 12.1 % (2.0-12.0); NEUTROPHILS # (AUTO) 4.4 /CMM (1.8-8.9); NEUTROPHILS % (AUTO) 52.4 % (43.0-81.0); PLATELET COUNT (AUTO) 179 /CMM (150-450); RDW COEFFICIENT OF VARIATION 15.7 (11.5-15.0); RED BLOOD CELL COUNT(AUTO) 3.07 MIL/uL (4.0-5.2); WHITE BLOOD COUNT (AUTO) 8.5 K/uL (4.3-11.0)
[2017-10-10 06:29] LABS: TROPONIN I < 0.017 ng/mL (0.00-0.056)
[2017-10-10 06:48] LABS: ALANINE AMINOTRANSFERASE 24 U/L (12-78); ALBUMIN 3.3 g/dL (3.4-5.0); ALKALINE PHOSPHATASE 73 U/L (46-116); ASPARTATE AMINOTRANSFERASE 15 U/L (15-37); BILIRUBIN,DIRECT 0.1 mg/dL (0.0-0.2); BILIRUBIN,TOTAL 0.5 mg/dL (0.2-1.0); CALCIUM, SERUM 9.2 mg/dL (8.5-10.1); CARBON DIOXIDE 26 mmol/L (21-32); CHLORIDE 108 mmol/L (98-107); CHOLESTEROL 140 mg/dL (<200); CREATININE 1.1 mg/dL (0.6-1.3); GLUCOSE 115 mg/dL (74-106); HDL CHOLESTEROL 50 mg/dL (40-60); LDL 75 mg/dL (0-99); MAGNESIUM 1.8 mg/dL (1.8-2.4); PHOSPHORUS 4.5 mg/dL (2.5-4.9); POTASSIUM 4.5 mmol/L (3.5-5.1); SODIUM SERUM 143 mmol/L (136-145); THYROID STIMULATING HORMONE 4.099 uIU/mL (0.358-3.74); TOTAL PROTEIN, SERUM 6.3 g/dL (6.4-8.2); TRIGLYCERIDES 96 mg/dL (30-150); UREA NITROGEN, BLOOD 17 mg/dL (7-18)
[2017-10-10 07:23] LABS: IRON, SERUM 40 ug/dl (50-175); TOTAL IRON BINDING CAPACITY 226 ug/dl (250-450)
[2017-10-10] MEDS: PANTOPRAZOLE 40 MG TABLET.DR PO SCH (07:42)
[2017-10-10] MEDS: TRAMADOL HCL 50 MG TABLET PO PRN ×2 (07:43→14:56)
--- NOTE | 2017-10-10 07:50 | NUR ---
FREIGHT CONDUCTOR NOTE C\O BACK PAIN 8\10 SCALE ULTRAM PO GIVEN ORDERED, WILL F\U
--- NOTE | 2017-10-10 07:54 | NUR ---
SPECIAL FORCES OFFICER NOTE PATIENT IN BED , ALL NEEDS ATTENDED ,C\O PAIN IN LOWER BACK 8\10 WILL GIVE ULTRAM REQUESTED BY PATIENT, PATIENT ALERT , ORIENTED, ON RA SAT 97% LT UPPER RM PICC LINE IN PLACE NO S\S INFECTION , ON TELE MONITOR SR 70 CALL LIGHT WITHIN REACH , BED IN LOWEST AND LOCKED POSITION WILL CONT TO MONITOR CLOSELY ,,PLAN OF CARE DISCUSSED WITH PATIENT
[2017-10-10] MEDS: CARVEDILOL 12.5 MG TABLET PO SCH (08:08)
[2017-10-10] MEDS: VALSARTAN 80 MG TABLET PO SCH (08:08)
[2017-10-10] MEDS: FOLIC ACID 1 MG TABLET PO SCH (08:08)
[2017-10-10] MEDS: ASPIRIN 81 MG TAB.CHEW PO SCH (08:12)
--- NOTE | 2017-10-10 08:14 | NUR ---
TANK TRUCK OPERATOR NOTE ACU CHECK NOT AVAILABLE GLUCOSE LEVEL 115 MG\DL
[2017-10-10] MEDS ORDERED: FUROSEMIDE 20 MG/2 ML VIAL IV ONE (11:00)
--- NOTE | 2017-10-10 12:33 | NUR ---
HEALTH SOCIAL WORK PROFESSOR NOTE SEEN BY NELLY FRENCH NOTIFIED THAT PATIENT WITH SEVERE BACK PAIN AND ALSO AWARE AAA1.8 CM NO NEW ORDER GIVEN AT THIS TIME
--- NOTE | 2017-10-10 12:33 | NUR ---
DIE REPAIRER FORGING NOTE SEEN BY DR SULLIVAN WITH ORDER GIVE LASIX
--- NOTE | 2017-10-10 12:48 | NUR ---
MANAGER OF TRANSPORTATION NOTE SEEN BY PT, ABLE TO SIT ON CHAIR, STILL WITH PAIN ,REFUSED TO TAKE NORCO AND TRAMADOL WILL F\U
--- NOTE | 2017-10-10 13:22 | NUR ---
BUSINESS ANALYSIS PROFESSIONAL NOTE PER ADRI MILLS TO ORDER PAIN MANAGEMENT DOCTOR .CHARGE NURSE CALLED STATED THAT WILL SEE PATIENT SOON
--- NOTE | 2017-10-10 14:13 | NUR ---
MANAGER TRAINING AND DEVELOPMENT NOTE RESTING COMFORTABLY, ALL NEEDS ATTENDED, FAMILY AT BEDSIDE
--- NOTE | 2017-10-10 15:05 | NUR ---
NOVELTY MAKER NOTE C\O SEVERE BACK PAIN 8\10 SCALE OFFERED TO GIVE TORADOL BUT REFUSED .OFFERED TO TAKE ULTRAM , GIVEN ORDERED WILL CONT TO MONITOR CLOSELY
--- NOTE | 2017-10-10 16:53 | NUR ---
TRANSFUSION AIDE NOTE BLOOD SUGAR 135 MG\L REFUSED COVERAGE WITHIN INSULIN, WILL F\U
--- NOTE | 2017-10-10 17:37 | NUR ---
DRIVER EDUCATION INSTRUCTOR NOTE CHARGE NURSE SPOKE WITH PAIN MANAGEMENT DOCTOR ,STATED HAT AWARE THAT NEED TO SEE PATIENT WILL F\U
--- NOTE | 2017-10-10 18:58 | NUR ---
JUDICIAL CLERK NOTE DR ARGUETA AT BEDSIDE WITH NEW ORDER GIVEN
--- NOTE | 2017-10-10 19:18 | NUR ---
CREPE BOX TENDER NOTE CONSENT FOR MRI SPINE SIGNED BY PATIENT
--- NOTE | 2017-10-10 19:30 | NUR ---
TELE/RN NOTES: RECEIVED PT. IN BED SITTING. A/O X 4. ON TELE MONITOR W/ SR W/ 1ST DEGREE HEART BLOCK. HAS BLE + 2 EDEMA. PT. IS CONTINENT OF B/B. ABLE TO AMBULATE W/ STEADY GAIT TO THE BATHROOM. HAS PAM PICC W/ DRESSING INTACT AND PATENT W/ NO S/S OF INFECTION/INFILTRATION NOTED. REQUESTED FOR ATHENS FOR SLEEP/PAIN. CALL LIGHT W/REACH. WILL CONTINUE TO MONITOR.
[2017-10-10] MEDS: HYDROCODONE/APAP 5/325MG 1 EACH TABLET PO PRN (20:48)
[2017-10-10] MEDS: DILTIAZEM HCL CD 240 MG PO SCH (21:00)
[2017-10-11] VITALS (7 sets, daily range): BP systolic 121–151; BP diastolic 46–63
[2017-10-11] MEDS: BLOOD SUGAR DIAGNOSTIC 1 EACH STRIP IN SCH ×6 (00:01→20:28)
[2017-10-11] MEDS: HYDROCODONE/APAP 5/325MG 1 EACH TABLET PO PRN ×2 (04:16→08:17)
[2017-10-11 06:37] LABS: BASOPHILS % (AUTO) 0.2 % (0.0-2.0); EOSINOPHILS % (AUTO) 1.7 % (0.0-6.0); HEMATOCRIT 30 % (33-45); HEMOGLOBIN 10.4 g/dL (11.5-14.8); LYMPHOCYTES # (AUTO) 2.1 /CMM (0.8-4.8); LYMPHOCYTES % (AUTO) 28.1 % (20.0-44.0); MEAN CORPUSCULAR HGB CONC 35 g/dl (31.0-36.0); MEAN CORPUSCULAR VOLUME 97 fL (82-100); MONOCYTES # (AUTO) 0.9 /CMM (0.1-1.30); MONOCYTES % (AUTO) 12.1 % (2.0-12.0); NEUTROPHILS # (AUTO) 4.2 /CMM (1.8-8.9); NEUTROPHILS % (AUTO) 57.9 % (43.0-81.0); PLATELET COUNT (AUTO) 169 /CMM (150-450); RDW COEFFICIENT OF VARIATION 15.2 (11.5-15.0); WHITE BLOOD COUNT (AUTO) 7.3 K/uL (4.3-11.0)
--- NOTE | 2017-10-11 06:39 | NUR ---
MRI APPROVED BY [facility]
[2017-10-11 06:49] LABS: CALCIUM, SERUM 9.6 mg/dL (8.5-10.1); CARBON DIOXIDE 31 mmol/L (21-32); CHLORIDE 105 mmol/L (98-107); CREATININE 1.1 mg/dL (0.6-1.3); GLUCOSE 143 mg/dL (74-106); POTASSIUM 4.3 mmol/L (3.5-5.1); SODIUM SERUM 143 mmol/L (136-145)
[2017-10-11 07:00] LABS: UREA NITROGEN, BLOOD 18 mg/dL (7-18)
--- NOTE | 2017-10-11 07:20 | NUR ---
TELE/RN NOTES: RECEIVED PT IN BED. A/O X 4. ON TELE MONITOR W/ SR W/ 1ST DEGREE HEART BLOCK.HR 61. HAS BLE + 2 EDEMA. HAS PAM PICC W/ DRESSING INTACT AND PATENT W/ NO S/S OF INFECTION/INFILTRATION NOTED. BED IS LOCKED AND IN LOW POSITION.SRX2.CALL LIGHT W/REACH. WILL CONTINUE TO MONITOR.
--- NOTE | 2017-10-11 07:31 | NUR ---
TREE FRUIT AND NUT CROPS FARMER NOTES: NO ACUTE CHANGES NOTED DURING THIS SHIFT. REPORT GIVEN TO AM NURSE FOR LAURY.
[2017-10-11] MEDS: PANTOPRAZOLE 40 MG TABLET.DR PO SCH (08:10)
[2017-10-11] MEDS: ASPIRIN 81 MG TAB.CHEW PO SCH (08:16)
[2017-10-11] MEDS: VALSARTAN 80 MG TABLET PO SCH (08:16)
[2017-10-11] MEDS: CARVEDILOL 12.5 MG TABLET PO SCH (08:17)
[2017-10-11] MEDS: INSULIN REGULAR, HUMAN 100 UNIT/ML 3 ML VIAL SQ PRN ×3 (08:34→20:28)
[2017-10-11] MEDS: FOLIC ACID 1 MG TABLET PO SCH (08:34)
[2017-10-11] MEDS: ATORVASTATIN 40 MG TABLET PO SCH (08:36)
[2017-10-11] MEDS: TRAMADOL HCL 50 MG TABLET PO PRN ×2 (12:14→18:16)
--- NOTE | 2017-10-11 12:30 | NUR ---
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 VITAL SIGNS STABLE.SHE AGREED TO DO BONE SCAN.RADIOLOGY AWARE.
--- NOTE | 2017-10-11 19:10 | NUR ---
TELE/RN SHIFT END NOTES: PT IN BED. A/O X 4. ON TELE MONITOR W/ SR W/ 1ST DEGREE HEART BLOCK.HR 62. HAS BLE + 2 EDEMA AND LEFT MESSAGE TO PIN PULLER SOUZA REGARDING CONCERN FOR EDEMA AND REQUESTED LASIX PER PATIENT REQUEST.WAITING FOR THE RESPONSE.ENDORSED TO PM NURSE TO FOLLOW UP. HAS PAM PICC W/ DRESSING INTACT AND PATENT W/ NO S/S OF INFECTION/INFILTRATION NOTED. BED IS LOCKED AND IN LOW POSITION.SRX2.CALL LIGHT W/REACH. WILL ENDORSE TO PM NURSE FOR LAURY.
--- NOTE | 2017-10-11 19:30 | NUR ---
TRIAGE REGISTER NURSE NOTES RECEIVED REPORT FROM OSCAR ESCOBAR. PATIENT A/A/O X4, ABLE TO MAKE NEEDS KNOWN. BREATHING EVEN & UNLABORED, TOLERATING ROOM AIR. ON TELE W/ SINUS RHYTHM W/ 1ST DEGREE AVB. DENIES ANY RESPIRATORY OR CARDIAC DISTRESS. SKIN WARM, DRY & INTACT. LEFT UPPER ARM PICC LINE INTACT & PATENT W/ DRESSING CDI, SALINE LOCKED. PATIENT ABLE TO AMBULATE TO BATHROOM INDEPENDENTLY W/ WALKER. DENIES ANY PAIN OR DISCOMFORT @ THIS TIME. SAFETY MEASURES IN PLACE, INSTRUCTED TO USE CALL LIGHT FOR ASSISTANCE. FAMILY @ BEDSIDE. WILL CONTINUE TO MONITOR.
[2017-10-11] MEDS: ACETAMINOPHEN 325 MG TABLET PO PRN (20:29)
[2017-10-11] MEDS: MUPIROCIN OINT 2% 22 GM TUBE SCH (20:29)
[2017-10-11] MEDS: DILTIAZEM HCL CD 240 MG PO SCH (21:15)
[2017-10-12] VITALS (8 sets, daily range): BP systolic 127–156; BP diastolic 40–70
[2017-10-12] MEDS: BLOOD SUGAR DIAGNOSTIC 1 EACH STRIP IN SCH ×6 (01:14→21:58)
[2017-10-12] MEDS: INSULIN REGULAR, HUMAN 100 UNIT/ML 3 ML VIAL SQ PRN ×4 (01:14→17:54)
[2017-10-12] MEDS: ACETAMINOPHEN 325 MG TABLET PO PRN (04:27)
--- NOTE | 2017-10-12 07:20 | NUR ---
TELE/RN OPENING NOTES: RECEIVED PT IN BED. A/O X 4. ON TELE MONITOR W/ SR W/ 1ST DEGREE HEART BLOCK.HR 62. HAS BLE + 2 EDEMA. HAS PAM PICC W/ DRESSING INTACT AND PATENT W/ NO S/S OF INFECTION/INFILTRATION NOTED. BED IS LOCKED AND IN LOW POSITION.SRX2.CALL LIGHT W/REACH. WILL CONTINUE TO MONITOR.
[2017-10-12 08:10] LABS: IMMUNOGLOBULIN A, SERUM 112 mg/dL (64-422); IMMUNOGLOBULIN G, SERUM 461 mg/dL (700-1600); IMMUNOGLOBULIN M, SERUM 88 mg/dL (26-217)
[2017-10-12] MEDS: PANTOPRAZOLE 40 MG TABLET.DR PO SCH (09:00)
[2017-10-12] MEDS: ASPIRIN 81 MG TAB.CHEW PO SCH (09:56)
[2017-10-12] MEDS: CARVEDILOL 12.5 MG TABLET PO SCH (09:57)
[2017-10-12] MEDS: FOLIC ACID 1 MG TABLET PO SCH (09:57)
[2017-10-12] MEDS: VALSARTAN 80 MG TABLET PO SCH (09:58)
[2017-10-12] MEDS: MUPIROCIN OINT 2% 22 GM TUBE SCH ×2 (09:59→21:00)
--- NOTE | 2017-10-12 11:00 | NUR ---
COATER SMOKING PIPE NOTE SEEN BY MADE AWARE ABOUT BLE EDEMA .AND PATIENT REQUEST FOR LASIX.GOT NEW ORDER.
[2017-10-12 11:17] LABS: *SPE A/G RATIO 1.3 (0.7-1.7); *SPE ALBUMIN 3.4 g/dL (2.9-4.4); *SPE ALPHA-1-GLOBULIN 0.3 g/dL (0.0-0.4); *SPE BETA GLOBULIN 0.8 g/dL (0.7-1.3); *SPE GLOBULIN, TOTAL 2.6 g/dL (2.2-3.9); *SPE M-SPIKE Not Observed g/dL (Not Observed); *SPEGAMMA GLOBULIN 0.5 g/dL (0.4-1.8)
[2017-10-12] MEDS: FUROSEMIDE 40 MG/4 ML VIAL IV SCH ×3 (12:50→20:51)
--- NOTE | 2017-10-12 13:00 | NUR ---
NATIONAL SERVICE OFFICER NOTE SEEN BY GABY SOUZA MADE AWARE ABOUT THE Q4H ACUCHECK.CHANGED TO QAC&HS.
--- NOTE | 2017-10-12 17:00 | NUR ---
TEACHING SUPERVISOR NOTES C/O PAIN UNDER L BREAST.TOLD THAT SHE HAS CHEST PAIN AND MORE WEAK AND MORE SLEEPY THAN USUAL.VITAL SIGNS STABLE.AXOX4.BP IS 040/70.O2 SAT IS 99%.SURVEY ANALYST SOUZA AWARE ORDERED STAT EKG AND TROPONIN LEVEL.NOTED AND CARRIED OUT.CONTINUE TO MONITOR.
--- NOTE | 2017-10-12 19:00 | NUR ---
TELE/RN SHIFT END NOTES: PT IN BED. A/O X 4. ON TELE MONITOR W/ SR W/ 1ST DEGREE HEART BLOCK.HR 64. HAS BLE + 2 EDEMA AND LEFT MESSAGE TO CONCRETE PIPE MACHINE OPERATOR SOUZA REGARDING EKG RESULT AND TROPONIN LEVEL.WAITING FOR THE RESPONSE.ENDORSED TO PM NURSE TO FOLLOW UP REGARDING CHEST PAIN. HAS PAM PICC W/ DRESSING INTACT AND PATENT W/ NO S/S OF INFECTION/INFILTRATION NOTED. BED IS LOCKED AND IN LOW POSITION.SRX2.CALL LIGHT W/REACH. WILL ENDORSE TO PM NURSE FOR LAURY.
--- NOTE | 2017-10-12 19:20 | NUR ---
MS/RN OPENING NOTES PT RECEIVED SITTING UP IN BED. A/OX4. ON ROOM AIR, BREATHING EVEN AND UNLABORED. DENIES SOB, NO C/O OF PAIN AT THIS TIME. FAMILY AT BEDSIDE. PAM PICC LINE PATENT AND INTACT. BED IN LOW/LOCKED POSITION WITH CALL LIGHT IN REACH. SIDE RAILS UPX2. WILL CONTINUE TO MONITOR
[2017-10-12] MEDS: DILTIAZEM HCL CD 240 MG PO SCH (22:01)
[2017-10-13] VITALS (7 sets, daily range): BP systolic 76–154; BP diastolic 20–67
--- NOTE | 2017-10-13 | NUR ---
MS/RN NOTES PT REQUESTING EXTRA STRENGTH TYLENOL. PER RONY BOLANOS TO CHANGE TYLENOL FROM 650MG TO 1,000MG PO Q6H PRN. ORDERS NOTED AND CARRIED OUT
[2017-10-13] MEDS: ACETAMINOPHEN ES 500 MG TABLET PO PRN ×3 (00:01→22:26)
[2017-10-13] MEDS: TRAMADOL HCL 50 MG TABLET PO PRN ×2 (02:40→20:12)
[2017-10-13 06:42] LABS: BASOPHILS % (AUTO) 0.3 % (0.0-2.0); EOSINOPHILS % (AUTO) 1.3 % (0.0-6.0); HEMATOCRIT 33 % (33-45); HEMOGLOBIN 11.3 g/dL (11.5-14.8); LYMPHOCYTES # (AUTO) 2.5 /CMM (0.8-4.8); LYMPHOCYTES % (AUTO) 32.7 % (20.0-44.0); MEAN CORPUSCULAR HGB CONC 35 g/dl (31.0-36.0); MEAN CORPUSCULAR VOLUME 97 fL (82-100); MONOCYTES # (AUTO) 0.9 /CMM (0.1-1.30); MONOCYTES % (AUTO) 11.6 % (2.0-12.0); NEUTROPHILS # (AUTO) 4.1 /CMM (1.8-8.9); NEUTROPHILS % (AUTO) 54.1 % (43.0-81.0); PLATELET COUNT (AUTO) 189 /CMM (150-450); RDW COEFFICIENT OF VARIATION 15.2 (11.5-15.0); RED BLOOD CELL COUNT(AUTO) 3.36 MIL/uL (4.0-5.2); WHITE BLOOD COUNT (AUTO) 7.5 K/uL (4.3-11.0)
--- NOTE | 2017-10-13 06:56 | NUR ---
MS/RN CLOSING NOTES PT RESTING COMFORTABLE IN BED. EASILY AROUSABLE TO NAME. ON ROOM AIR, BREATHING EVEN AND UNLABORED. DENIES SOB. PAIN CONTROLLED WITH TYLENOL AND ULTRAM. ASSISTED TO BSC. IV TO PAM PATENT AND INTACT. NO C/O CP DURING SHIFT. KEPT PT COMFORTABLE DURING SHIFT, ALL NEEDS MET. BED IN LOW/LOCKED POSITION WITH CALL LIGHT IN REACH. SIDE RAILS UPX2. WILL ENDORSE TO DAY SHIFT RN LAURY
[2017-10-13 07:04] LABS: CALCIUM, SERUM 9.7 mg/dL (8.5-10.1); CARBON DIOXIDE 31 mmol/L (21-32); CHLORIDE 103 mmol/L (98-107); CREATININE 1.3 mg/dL (0.6-1.3); GLUCOSE 128 mg/dL (74-106); MAGNESIUM 1.8 mg/dL (1.8-2.4); PHOSPHORUS 4.6 mg/dL (2.5-4.9); POTASSIUM 3.4 mmol/L (3.5-5.1); SODIUM SERUM 144 mmol/L (136-145); UREA NITROGEN, BLOOD 27 mg/dL (7-18)
--- NOTE | 2017-10-13 07:30 | NUR ---
MS RN NOTES PATIENT RESTING INSIDE ROOM, AWAKE, ALERT AND ORIENTED, VERBALLY RESPONSIVE AND RESPONDS TO VERBAL AND TACTILE STIMULI. PATIENT BREATHING EVEN AND UNLABORED. NO SOB OR ACUTE DISTRESS AT THIS TIME. DENIES ANY PAIN OR DISCOMFORT. PAM PICC LINE INTACT AND PATENT, NO BLEEDING NOTED AT THIS TIME. WILL CONTINUE TO MONITOR. BED LOCKED AND IN LOW POSITION. BILATERAL UPPER SIDE RAILS UP AND LOCKED. CALL LIGHT WITHIN EASY REACH
[2017-10-13 07:35] LABS: ALANINE AMINOTRANSFERASE 18 U/L (12-78); ALBUMIN 3.7 g/dL (3.4-5.0); ALKALINE PHOSPHATASE 74 U/L (46-116); ASPARTATE AMINOTRANSFERASE 12 U/L (15-37); BILIRUBIN,TOTAL 0.5 mg/dL (0.2-1.0)
[2017-10-13] MEDS: VALSARTAN 80 MG TABLET PO SCH (08:17)
[2017-10-13] MEDS: CARVEDILOL 12.5 MG TABLET PO SCH (08:18)
[2017-10-13] MEDS: ATORVASTATIN 40 MG TABLET PO SCH (08:18)
[2017-10-13] MEDS: ASPIRIN 81 MG TAB.CHEW PO SCH (08:18)
[2017-10-13] MEDS: FOLIC ACID 1 MG TABLET PO SCH (08:18)
[2017-10-13] MEDS: PANTOPRAZOLE 40 MG TABLET.DR PO SCH (08:18)
[2017-10-13] MEDS: BLOOD SUGAR DIAGNOSTIC 1 EACH STRIP IN SCH ×4 (08:18→22:10)
[2017-10-13] MEDS: MUPIROCIN OINT 2% 22 GM TUBE SCH ×2 (08:19→20:24)
[2017-10-13] MEDS: INSULIN REGULAR, HUMAN 100 UNIT/ML 3 ML VIAL SQ PRN ×4 (08:20→22:13)
[2017-10-13] MEDS: FUROSEMIDE 40 MG TABLET PO SCH (09:39)
[2017-10-13] MEDS: POTASSIUM CHLORIDE 20 MEQ TAB.PRT.SR PO SCH (09:39)
[2017-10-13] MEDS ORDERED: POTASSIUM CHLORIDE 20 MEQ TAB.PRT.SR PO SCH (10:00)
[2017-10-13] MEDS ORDERED: IV NS 0.9% 250 ML IV ONE (14:30)
--- NOTE | 2017-10-13 18:59 | NUR ---
MS RN NOTES PATIENT RESTING INSIDE ROOM, AWAKE, ALERT AND ORIENTED, VERBALLY RESPONSIVE AND RESPONDS TO VERBAL AND TACTILE STIMULI. NO SOB OR ACUTE DISTRESS NOTED. DENIES ANY PAIN OR DISCOMFORT. IV SITE INTACT AND PATENT, NO SWELLING OR BLEEDING NOTED. WILL ENDORSE TO INCOMING SHIFT FOR LAURY. BED LOCKED AND IN LOW POSITION, BILATERAL UPPER SIDE RAILS UP AND LOCKED. MAINTAINED ISOLATION PRECAUTIONS. CALL LIGHT WITHIN EASY REACH
--- NOTE | 2017-10-13 19:45 | NUR ---
MS/RN NOTES RECEIVED PATIENT IN STABLE CONDITION, COMING OUT FROM BATHROOM AMBULATING WITH WALKER. A&OX4. BREATHING EVENLY ON RA WITH NO C/O OF SOB, SAT 94%. L UPPER ARM PICC, PURPLE LUMEN DIFFICULT TO FLUSH, RED LUMEN PATENT, SITE CDI. BLE +3, NON-PITTING EDEMA, ELEVATED ON PILLOW. PATIENT MADE AWARE OF PLAN OF CARE INCUDING POSSIBLE D/C TOMORROW AND VERBALIZED UNDERSTANDING. C/O OF MID BACK PAIN AND WILL ADMINISTER PAIN MEDICATION. ALSO C/O OF SLIGHT DIZZINESS. REFUSED BED ALARM AND SIDE RAILS X 3. EDUCATED ON FALL PREVENTION AND VERBALIZED UNDERSTANDING. PATIENT STATES SHE'S FINE AND SHE KNOWS WHAT TO DO. NO OTHER CONCERNS MADE. BED AT LOWEST POSITION AND LOCKED, SIDE RAILS X 2. SIDE TABLE AND CALL LOUIS WITHIN REACH. WILL CONTINUE TO MONITOR.
--- NOTE | 2017-10-13 20:00 | NUR ---
MS/RN NOTES R UPPER PICC LINE, SITE CDI, RED PORT FLUSHED & PATENT. PURPLE PORT UNABLE TO FLUSH, OCCLUDED. Addendum: 10/14/17 at 0519 by RAINE CLEMONS RN Amended: Links added.
[2017-10-13] MEDS: DILTIAZEM HCL CD 240 MG PO SCH (22:12)
[2017-10-14 04:00] VITALS: BP 135/57
[2017-10-14 04:35] VITALS: BP 164/56
[2017-10-14 04:40] VITALS: BP 158/58
[2017-10-14] MEDS: TRAMADOL HCL 50 MG TABLET PO PRN (04:43)
[2017-10-14 05:20] VITALS: BP 158/58
--- NOTE | 2017-10-14 06:59 | NUR ---
MS/RN NOTES PATIENT WAS ABLE TO SLEEP. SHE REMOVED HER NASAL CANNULA AT ONE TIME AND STATES SHE HAD DIFFICULTY BREATHING. NOW ON O2 2L SAT 95%, BREATHING EVENLY. FREQUENT VOIDING. C/O OF MID BACK PAIN, LEVEL 7-9/10, PRESSURE/SHARP. ADMINISTERED TRAMADOL X 2 AND TYLENOL X 1 WITH EFFECTIVENESS. NO C/O DIZZINESS DURING SHIFT. SHE IS UPSET THAT SHE HAS TO VOID FREQUENTLY AND IT EXACERBATES HER BACK PAIN WHEN SHE MOVES. OTHERWISE, PATIENT IS STABLE. ALL NEEDS MET. WILL ENDORSED TO AM SHIFT FOR CONTINUITY OF CARE.
[2017-10-14] MEDS: BLOOD SUGAR DIAGNOSTIC 1 EACH STRIP IN SCH ×3 (07:37→17:30)
[2017-10-14] MEDS: PANTOPRAZOLE 40 MG TABLET.DR PO SCH (07:37)
[2017-10-14] MEDS: ACETAMINOPHEN ES 500 MG TABLET PO PRN (07:38)
[2017-10-14] MEDS: INSULIN REGULAR, HUMAN 100 UNIT/ML 3 ML VIAL SQ PRN ×2 (07:42→11:58)
--- NOTE | 2017-10-14 07:52 | NUR ---
MS RN OPENING NOTES PATIENT RECEIVED AWAKE IN BED IN NO ACUTE SIGNS OF DISTRESS. ALERT AND ORIENTED 4, VERBALLY RESPONSIVE WITH C/O MILD PAIN ON HER MIDBACK AND REQUESTED FOR TYLENOL. PRN TYLENOL ES 1000MG GIVEN ORDERED. ON 02 VIA N/C @ 2LPM, BREATHING EVEN AND UNLABORED. PAM PICC INTACT AND PATENT WITH NO BLEEDING AT SITE NOTED. HOB ELEVATED. BED LOCKED AND IN LOW POSITION. BILATERAL UPPER SIDE RAILS UP AND LOCKED. CALL LIGHT WITHIN EASY REACH. ALL SAFETY MEASURES MAINTAINED. WILL CONTINUE TO MONITOR PT.
[2017-10-14 08:00] VITALS: BP 138/57
--- NOTE | 2017-10-14 08:41 | NUR ---
RN NOTES PT'S HEMODIALYSIS FINISHED WITHOUT ANY PROBLEMS NOTED DURING THE PROCEDURE. PT ALERT AND ORIENTED X4 IN NO ACUTE SIGN OF DISTRESS. OUTPUT IS 1500 ML. S/P HD V/S: BP 108/46MMHHG, P 89, R 17 AND T 98.5F. WILL CONTINUE TO MONITOR.
[2017-10-14] MEDS: MUPIROCIN OINT 2% 22 GM TUBE SCH (09:15)
[2017-10-14] MEDS: CARVEDILOL 12.5 MG TABLET PO SCH (09:16)
[2017-10-14] MEDS: FUROSEMIDE 40 MG TABLET PO SCH (09:16)
[2017-10-14] MEDS: ASPIRIN 81 MG TAB.CHEW PO SCH (09:16)
[2017-10-14] MEDS: POTASSIUM CHLORIDE 20 MEQ TAB.PRT.SR PO SCH (09:16)
[2017-10-14] MEDS: FOLIC ACID 1 MG TABLET PO SCH (09:17)
--- NOTE | 2017-10-14 09:18 | NUR ---
RN NOTES PATIENT CHECKED FOR ORTHOSTATIC BLOOD PRESSURE, RESULTS ARE THE FOLLOWING; SUPINE 129/61 MMHG, SITTING 149/73 MMHG AND STANDING 127/66 MMHG. WILL CONTINUE TO MONITOR.
[2017-10-14] MEDS: VALSARTAN 80 MG TABLET PO SCH (09:19)
--- NOTE | 2017-10-14 09:26 | NUR ---
CORRECTION: PROGRESS NOTES IF FOR ANOTHER PATIENT.
[2017-10-14] MEDS ORDERED: TRAM50TA2 PO (11:38)
[2017-10-14 16:00] VITALS: BP 118/49
--- NOTE | 2017-10-14 17:06 | NUR ---
RN DISCHARGED NOTES PATIENT DISCHARGED HOME IN STABLE CONDITION. ALERT, ORIENTED X4 AND VERBALLY RESPONSIVE, NO COMPLAINTS VOICED DURING DISCHARGE. ALL NEEDS AND CARE ATTENDED WELL. V/S STABLE. SKIN IS INTACT. DOUBLE LUMEN PICC LINE ON LEFT UPPER ARM INTACT AND PATENT, EASILY FLUSHED. BELONGINGS CHECKED, COUNTED AND SIGNED FORM. PRESCRIPTION FOR TRAMADOL AND PHYSICIAN APPOINTMENT SCHEDULE GIVEN TO PT. HEALTH TEACHINGS GIVEN TO PT AND VERBALIZED UNDERSTANDING. PT LEFT UNIT AT 1720 VIA WHEELCHAIR ACCOMPANIED BY SHERIN AND MAURICIO MATOS. CHARGE NURSE AWARE OF DISCHARGE.
[2017-11-23] MEDS ORDERED: TRAM50TA2 PO (13:27)
[2017-11-23] MEDS ORDERED: IV CHEMO IV (13:28)
[2017-11-23] MEDS ORDERED: RITU10VI IV (14:17)
== END 2017-10-14 17:49 | disposition home health service (06) | DRG 542 ==
LOC: ER 15:51 → TELE1 19:01 → MEDSG1 10-12 13:37
PROVIDERS: ADMIT Internal Medicine; ATTEND Internal Medicine
PROC: 02HV33Z Insertion of Infusion Device into Superior Vena Cava, Percutaneous Approach (ICD-10-PCS; principal; 2017-10-10)
PROC: B548ZZA Ultrasonography of Superior Vena Cava, Guidance (ICD-10-PCS; 2017-10-10)
DX: M48.54XA Collapsed vertebra, not elsewhere classified, thoracic region, initial encounter for fracture (principal); I50.33 Acute on chronic diastolic (congestive) heart failure; E44.1 Mild protein-calorie malnutrition; I13.0 Hypertensive heart and chronic kidney disease with heart failure and stage 1 through stage 4 chronic kidney disease, or unspecified chronic kidney disease; J98.11 Atelectasis; D47.2 Monoclonal gammopathy; N18.9 Chronic kidney disease, unspecified; I48.0 Paroxysmal atrial fibrillation; I11.0 Hypertensive heart disease with heart failure; E11.22 Type 2 diabetes mellitus with diabetic chronic kidney disease; D63.8 Anemia in other chronic diseases classified elsewhere; E78.5 Hyperlipidemia, unspecified; F41.9 Anxiety disorder, unspecified; I25.10 Atherosclerotic heart disease of native coronary artery without angina pectoris; M25.78 Osteophyte, vertebrae; I95.1 Orthostatic hypotension; M46.94 Unspecified inflammatory spondylopathy, thoracic region; M46.96 Unspecified inflammatory spondylopathy, lumbar region; M47.814 Spondylosis without myelopathy or radiculopathy, thoracic region; K21.9 Gastro-esophageal reflux disease without esophagitis; Z88.8 Allergy status to other drugs, medicaments and biological substances; Z88.5 Allergy status to narcotic agent; Z79.899 Other long term (current) drug therapy; I27.20 Pulmonary hypertension, unspecified; Z95.5 Presence of coronary angioplasty implant and graft; Z90.710 Acquired absence of both cervix and uterus; Z79.82 Long term (current) use of aspirin; Z82.49 Family history of ischemic heart disease and other diseases of the circulatory system; Z79.4 Long term (current) use of insulin; I71.9 Aortic aneurysm of unspecified site, without rupture; N27.0 Small kidney, unilateral; Z80.9 Family history of malignant neoplasm, unspecified; R91.8 Other nonspecific abnormal finding of lung field; T50.2X5A Adverse effect of carbonic-anhydrase inhibitors, benzothiadiazides and other diuretics, initial encounter; Y92.009 Unspecified place in unspecified non-institutional (private) residence as the place of occurrence of the external cause; C88.0 Waldenstrom macroglobulinemia; M85.80 Other specified disorders of bone density and structure, unspecified site
CPT/HCPCS: 36415; 71045-TC; 71250-TC; 72128-TC; 77075-TC; 80048-TC; 80053-TC; 80061-TC; 80076-TC; 82550-TC; 82746; 82784; 82962-TC; 83540-TC; 83735-TC; 83880; 84100-TC; 84155; 84165; 84443-TC; 84484-TC; 85025-TC; 85730-TC; 86334; 87081-TC; 93307-TC; 97116-TC; 97530-TC; A4606; J1815; J1940; Z7610

== ENCOUNTER 2018-01-24 14:45 | Inpatient (IN) | payer MEDICARE, OTHER ==
[~2018-01-24] VITALS: Ht 152.4 cm; Wt 88.9 kg
[~2018-01-24 14:45] MED LIST changes: +DILT240C2 PO; +FURO40TA5 PO; +INSU100V30 SQ; -NITR0.4T48 SL; +RITU10VI IV; +TRAM50TA2 PO
[2018-01-24 15:18] LABS: BASOPHILS # (AUTO) 0.1 /CMM (0.0-0.2); BASOPHILS % (AUTO) 0.9 % (0.0-2.0); HEMATOCRIT 30 % (33-45); HEMOGLOBIN 10.3 g/dL (11.5-14.8); LYMPHOCYTES # (AUTO) 2.6 /CMM (0.8-4.8); LYMPHOCYTES % (AUTO) 31.2 % (20.0-44.0); MEAN CORPUSCULAR HGB CONC 35 g/dl (31.0-36.0); MEAN CORPUSCULAR VOLUME 93 fL (82-100); MONOCYTES # (AUTO) 0.8 /CMM (0.1-1.30); MONOCYTES % (AUTO) 9.5 % (2.0-12.0); NEUTROPHILS # (AUTO) 4.7 /CMM (1.8-8.9); NEUTROPHILS % (AUTO) 57.4 % (43.0-81.0); PLATELET COUNT (AUTO) 153 /CMM (150-450); RED BLOOD CELL COUNT(AUTO) 3.16 MIL/uL (4.0-5.2); WHITE BLOOD COUNT (AUTO) 8.3 K/uL (4.3-11.0)
[2018-01-24 15:32] LABS: CALCIUM, SERUM 9.5 mg/dL (8.5-10.1); CARBON DIOXIDE 25 mmol/L (21-32); CHLORIDE 103 mmol/L (98-107); CREATININE 1.1 mg/dL (0.6-1.3); GLUCOSE 116 mg/dL (74-106); POTASSIUM 3.6 mmol/L (3.5-5.1); SODIUM SERUM 141 mmol/L (136-145); UREA NITROGEN, BLOOD 27 mg/dL (7-18)
[2018-01-24 15:35] LABS: INR 0.97 (0.87-1.13)
[2018-01-24 15:40] LABS: TROPONIN I < 0.017 ng/mL (0.00-0.056)
[2018-01-24 15:45] LABS: ALANINE AMINOTRANSFERASE 18 U/L (12-78); ALBUMIN 3.8 g/dL (3.4-5.0); ALKALINE PHOSPHATASE 85 U/L (46-116); ASPARTATE AMINOTRANSFERASE 17 U/L (15-37); B-TYPE NATRIURETIC PEPTIDE 2672 PG/ML (0-125); BILIRUBIN,DIRECT 0.1 mg/dL (0.0-0.2); BILIRUBIN,TOTAL 0.4 mg/dL (0.2-1.0); TOTAL PROTEIN, SERUM 6.8 g/dL (6.4-8.2)
--- NOTE | 2018-01-24 16:26 | NUR ---
PANEL ON-CALL PAGED
[2018-01-24] MEDS ORDERED: NITROGLYCERIN PACKET 1 GM PACKET TD ONE (16:30)
--- NOTE | 2018-01-24 16:31 | NUR ---
SHON BAI DNP WAS PAGED.
[2018-01-24] MEDS ORDERED: FUROSEMIDE 40 MG/4 ML VIAL IV ONE (17:30)
--- NOTE | 2018-01-24 17:38 | NUR ---
PT IS ASSIGNED TO THE [facility] RM#: [id number], Dx: CHF, AND ACCEPTING: SHON BAI DNP
[2018-01-24] MEDS ORDERED: FUROSEMIDE 40 MG/4 ML VIAL ONE (18:12)
--- NOTE | 2018-01-24 18:20 | NUR ---
A AUXILIARY NOTES RECEIVED PT FROM E.R. STAFF, AWAKE, ALERT AND ORIENTED, NO COMPLAINT OF PAIN, NOT IN DISTRESS, 98% O2 ON ROOM AIR AT THIS TIME, ABLE TO AMBULATE TO THE BATHROOM WITH STEADY GAIT, ROOM SET UP ORIENTATION PROVIDED, VERBALIZED UNDERSTANDING, CALL LIGHT WITHIN REACH, MADE COMFORTABLE, AWAITING ADMISSION ORDERS FROM MD.
[2018-01-24 18:30] VITALS: BP 109/57
--- NOTE | 2018-01-24 19:10 | NUR ---
CHEKO RN OPENING NOTES PT AWAKE, ALERT AND ORIENTED, NO COMPLAINT OF PAIN, NO S/S DISTRESS AT THIS TIME, PT ON ROOM AIR , AMBULATORY, SON AT THE BED SIDE.SAFETY PRECAUTIONS IN PLACE , CALL LIGHT WITHIN REACH.WILL F/U PATHOLOGIST ORDERS AND CONTINUE TO MONITOR .
[2018-01-24] MEDS ORDERED: ZOLPIDEM TARTRATE 5 MG TABLET PO PRN (19:30)
[2018-01-24] MEDS ORDERED: ACETAMINOPHEN 325 MG TABLET PO PRN (19:30)
[2018-01-24] MEDS ORDERED: Z GUARD REMEDY 2 OZ OINT TP PRN (19:30)
[2018-01-24] MEDS ORDERED: MAGNESIUM HYDROXIDE 30 ML UDC PO PRN (19:30)
[2018-01-24] MEDS ORDERED: LORAZEPAM 1 MG TABLET PO PRN (19:30)
[2018-01-24] MEDS ORDERED: MAG HYDROX/AL HYDROX/SIMETH 30 ML UDC PO PRN (19:30)
[2018-01-24] MEDS ORDERED: ONDANSETRON HCL/PF 4 MG/2 ML VIAL IVP PRN (19:30)
[2018-01-24] MEDS ORDERED: DEXTROSE 50%-WATER 50 ML DISP.SYRIN IV PRN (19:30)
[2018-01-24] MEDS ORDERED: TRAMADOL HCL 50 MG TABLET PO PRN (19:30)
[2018-01-24 20:00] VITALS: BP 97/45
--- NOTE | 2018-01-24 21:03 | NUR ---
PT REFUSED MUCINEX SCHEDULED AT 2100.
[2018-01-24] MEDS: DILTIAZEM HCL CD 240 MG PO SCH (22:00)
--- NOTE | 2018-01-24 22:30 | NUR ---
Cardizem is not given due to low blood pressure 116/57. will continue to monitor
[2018-01-24] MEDS: BLOOD SUGAR DIAGNOSTIC 1 EACH STRIP IN SCH (22:48)
[2018-01-24] MEDS: INSULIN REGULAR, HUMAN 100 UNIT/ML 3 ML VIAL SQ PRN (22:49)
--- NOTE | 2018-01-24 23:06 | NUR ---
pt bs reading is 150. patient refused insulin , stated that she takes opal medication at home. Educated pt of importance to control bs level. pt refused
[2018-01-25] VITALS: BP 116/57
[2018-01-25 04:00] VITALS: BP 112/75
[2018-01-25] MEDS: BLOOD SUGAR DIAGNOSTIC 1 EACH STRIP IN SCH ×4 (06:34→21:53)
[2018-01-25] MEDS: INSULIN REGULAR, HUMAN 100 UNIT/ML 3 ML VIAL SQ PRN (06:35)
--- NOTE | 2018-01-25 07:14 | NUR ---
WATER PURIFIER OPERATOR CLOSING NOTES PATIENT IN BED AWARE. ALERT AND ORIENTED X3. VERBALLY RESPONSIVE. NO ACUTE CHANGES THROUGHOUT SHIFT. NO COMPLAINTS OF PAIN OR DISCOMFORT. BREATHING EVEN AND UNLABORED. NO SOB. IV ACCESS ON LEFT AC AND LEFT CHEST PICC LINE INTACT AND PATENT. SKIN DRY AND WARM TO TOUCH. AFEBRILE. ALL NEEDS ATTENDED DO. KEPT COMFORTABLE. SAFETY MEASURES IN PLACE. CALL LIGHT WITHIN REACH. BED ON LOWEST LOCKED POSITION. WILL ENDORSE TO ONCOMING NURSE FOR CONTINUITY OF CARE.
--- NOTE | 2018-01-25 07:40 | NUR ---
ms rn received on bed, awake,alert,oriented x4,not in any form of distress, respirations even and unlabored,no sob noted, lungs are clear,abdomen soft,positive bowel sounds, denies pain at this time, will monitor patient's condition.
[2018-01-25 07:41] LABS: CALCIUM, SERUM 9.2 mg/dL (8.5-10.1); CARBON DIOXIDE 27 mmol/L (21-32); CHLORIDE 105 mmol/L (98-107); CREATININE 1.2 mg/dL (0.6-1.3); GLUCOSE 114 mg/dL (74-106); MAGNESIUM 1.8 mg/dL (1.8-2.4); POTASSIUM 3.3 mmol/L (3.5-5.1); SODIUM SERUM 143 mmol/L (136-145); UREA NITROGEN, BLOOD 29 mg/dL (7-18)
[2018-01-25 07:49] LABS: IRON, SERUM 37 ug/dl (50-175); TOTAL IRON BINDING CAPACITY 249 ug/dl (250-450)
[2018-01-25 07:51] LABS: CHOLESTEROL 176 mg/dL (<200); HDL CHOLESTEROL 54 mg/dL (40-60); LDL 114 mg/dL (0-99); THYROID STIMULATING HORMONE 2.697 uIU/mL (0.358-3.74); TRIGLYCERIDES 99 mg/dL (30-150)
[2018-01-25 08:00] VITALS: BP 130/65
[2018-01-25 08:44] LABS: HEMATOCRIT 27 % (33-45); HEMOGLOBIN 9.4 g/dL (11.5-14.8); MEAN CORPUSCULAR HGB CONC 34 g/dl (31.0-36.0); MEAN CORPUSCULAR VOLUME 96 fL (82-100); RDW COEFFICIENT OF VARIATION 15.7 (11.5-15.0); RED BLOOD CELL COUNT(AUTO) 2.86 MIL/uL (4.0-5.2); WHITE BLOOD COUNT (AUTO) 6.7 K/uL (4.3-11.0)
[2018-01-25 08:45] LABS: BASOPHILS % (AUTO) 0.5 % (0.0-2.0); EOSINOPHILS % (AUTO) 1.2 % (0.0-6.0); LYMPHOCYTES # (AUTO) 2.2 /CMM (0.8-4.8); LYMPHOCYTES % (AUTO) 33.7 % (20.0-44.0); MONOCYTES # (AUTO) 0.8 /CMM (0.1-1.30); MONOCYTES % (AUTO) 12.3 % (2.0-12.0); NEUTROPHILS # (AUTO) 3.5 /CMM (1.8-8.9); NEUTROPHILS % (AUTO) 52.3 % (43.0-81.0); PLATELET COUNT (AUTO) 139 /CMM (150-450)
[2018-01-25] MEDS ORDERED: FUROSEMIDE 40 MG/4 ML VIAL IV SCH (09:00)
[2018-01-25] MEDS: LINAGLIPTIN 5 MG TABLET PO SCH (09:00)
[2018-01-25] MEDS: VALSARTAN 80 MG TABLET PO SCH (09:00)
--- NOTE | 2018-01-25 09:30 | NUR ---
ms allison breakfast served due meds given, tolerated well.
[2018-01-25] MEDS: ATORVASTATIN 40 MG TABLET PO SCH (09:32)
[2018-01-25] MEDS: FOLIC ACID 1 MG TABLET PO SCH (09:33)
[2018-01-25] MEDS: ASPIRIN 81 MG TAB.CHEW PO SCH (09:33)
[2018-01-25] MEDS: PANTOPRAZOLE 40 MG TABLET.DR PO SCH (09:33)
[2018-01-25] MEDS: POTASSIUM CHLORIDE 20 MEQ TAB.PRT.SR PO SCH ×2 (09:34→13:44)
[2018-01-25] MEDS: CARVEDILOL 12.5 MG TABLET PO SCH (09:34)
[2018-01-25] MEDS: ALBUTEROL HALF STRENGTH 1.25 MG/3 ML VIAL.NEB NEB SCH ×3 (11:55→19:30)
[2018-01-25] MEDS: IPRATROPIUM NEB FS 0.5 MG/2.5 ML AMPUL.NEB NEB SCH ×3 (11:55→19:30)
--- NOTE | 2018-01-25 12:09 | NUR ---
PT REFUSED ABG. PT STATES SHE HAD ONE TO DONE IN AUGUST AND IT WAS EXTREMELY PAINFUL AND THAT SHE WOULD NOT LIKE THAT AGAIN. BENEFITS AND COMPLICATIONS EXPLAINED. WILL CONT TO MONITOR
--- NOTE | 2018-01-25 13:27 | NUR ---
PT REFUSED RESP TX AT THIS TIME. NO S/S OF SOB NOTED. WILL CONT TO MONITOR Addendum: 01/25/18 at 1327 by SHAWNA MG RT Amended: Links added.
[2018-01-25] MEDS: GUAIFENESIN LA 600 MG TABLET.SA PO SCH ×2 (13:46→21:00)
[2018-01-25 16:00] VITALS: BP 106/46
--- NOTE | 2018-01-25 18:55 | NUR ---
MS RN WENT DOWN FOR CT CHEST.
--- NOTE | 2018-01-25 19:10 | NUR ---
MS RR OPENING NOTES RECEIVED PT IN BED,AWAKE ALERT AND ORIENTED X4. RESPIRATIONS EVEN AND UNLABORED , NO SOB NOTED AT THIS TIME,PT DENIES PAIN AT THIA TIME, WILL CONTINUE TO MONITOR AND PROVIDE CARE. .
[2018-01-25 20:00] VITALS: BP 104/44
--- NOTE | 2018-01-25 20:28 | NUR ---
RT NOTE PATIENT REFUSING BREATHING TREATMENT AT THIS TIME. PRIMARY NURSE NOTIFIED. NO SIGNS OF RESPIRATORY DISTRESS NOTED. SpO2 97%. WILL CONTINUE TO MONITOR PATIENT.
--- NOTE | 2018-01-25 20:29 | NUR ---
PT REFUSED BREATHING TREATMENT. O2 SUTURATION 97%
--- NOTE | 2018-01-25 21:54 | NUR ---
PT'S BS IS 139 . PT REFUSED INSULIN . PT EDUCATED ABOUT IMPORTANCE OF CONTROL BS LEVEL, PT STILL REFUSING.
[2018-01-25] MEDS: DILTIAZEM HCL CD 240 MG PO SCH (22:00)
--- NOTE | 2018-01-25 22:11 | NUR ---
PT BP IS 69/44 HR 74. HELD CARDIZEM. WILL CONTINUE TO MONITOR
[2018-01-26] MEDS: ALBUTEROL HALF STRENGTH 1.25 MG/3 ML VIAL.NEB NEB SCH ×3 (01:01→13:14)
--- NOTE | 2018-01-26 01:01 | NUR ---
RT NOTE PATIENT REFUSING TX AT THIS TIME. PRIMARY NURSE NOTIFIED. SpO2 97% ON 2LPM NC. NO SIGNS OF RESPIRATORY DISTRESS NOTED. WILL CONTINUE TO MONITOR PATIENT.
[2018-01-26] MEDS: BLOOD SUGAR DIAGNOSTIC 1 EACH STRIP IN SCH ×3 (06:43→17:41)
--- NOTE | 2018-01-26 06:46 | NUR ---
PT'S BS LEVEL IS 138. PT REFUSED INSULIN.
--- NOTE | 2018-01-26 07:15 | NUR ---
MS RN CLOSING NOTES PT IN BED,AWAKE ALERT AND ORIENTED X4. RESPIRATIONS EVEN AND UNLABORED , NO SOB NOTED AT THIS TIME,PT DENIES PAIN.ALL NEED ATTENDED AND MEDS ARE GIVEN. WILL ENDORSE TO NEXT SHIFT FOR LAURY.
--- NOTE | 2018-01-26 07:59 | NUR ---
MS RN NOTES PATIENT RESTING INSIDE ROOM. AWAKE, ALERT AND ORIENTED. VERBALLY RESPONSIVE AND RESPONDS TO VERBAL AND TACTILE STIMULI. BREATHING EVEN AND UNLABORED. NO SOB OR ACUTE DISTRESS. NO CHANGES IN LOC NOTED. PATIENT CALM AND RELAXED. PICCLINE INTACT AND PATENT. WILL CONTINUE TO MONITOR. BED LOCKED AND IN LOW POSITION. BILATERAL UPPER SIDE RAILS UP AND LOCKED. CALL LIGHT WITHIN EASY REACH
[2018-01-26 08:00] VITALS: BP_SYST 118; BP_SYST 121; BP_SYST 139; BP_DIAS 58; BP_DIAS 68; BP_DIAS 70
[2018-01-26 08:10] LABS: CALCIUM, SERUM 9.2 mg/dL (8.5-10.1); CARBON DIOXIDE 27 mmol/L (21-32); CHLORIDE 103 mmol/L (98-107); CREATININE 1.3 mg/dL (0.6-1.3); GLUCOSE 112 mg/dL (74-106); SODIUM SERUM 141 mmol/L (136-145); UREA NITROGEN, BLOOD 33 mg/dL (7-18)
[2018-01-26] MEDS: IPRATROPIUM NEB FS 0.5 MG/2.5 ML AMPUL.NEB NEB SCH ×2 (08:50→13:14)
[2018-01-26] MEDS ORDERED: FUROSEMIDE 40 MG TABLET PO SCH (09:00)
[2018-01-26] MEDS: VALSARTAN 80 MG TABLET PO SCH (09:00)
[2018-01-26] MEDS: ATORVASTATIN 40 MG TABLET PO SCH (09:00)
[2018-01-26] MEDS: GUAIFENESIN LA 600 MG TABLET.SA PO SCH (09:00)
[2018-01-26] MEDS: LINAGLIPTIN 5 MG TABLET PO SCH (09:00)
[2018-01-26] MEDS: CARVEDILOL 12.5 MG TABLET PO SCH ×3 (09:04→17:00)
[2018-01-26] MEDS: PANTOPRAZOLE 40 MG TABLET.DR PO SCH (09:04)
[2018-01-26 09:05] LABS: HEMATOCRIT 30 % (33-45); HEMOGLOBIN 10.4 g/dL (11.5-14.8); MEAN CORPUSCULAR VOLUME 96 fL (82-100); RED BLOOD CELL COUNT(AUTO) 3.16 MIL/uL (4.0-5.2); WHITE BLOOD COUNT (AUTO) 7.7 K/uL (4.3-11.0)
[2018-01-26] MEDS: FOLIC ACID 1 MG TABLET PO SCH (09:05)
[2018-01-26] MEDS: ASPIRIN 81 MG TAB.CHEW PO SCH (09:05)
[2018-01-26 09:06] LABS: BASOPHILS % (AUTO) 0.5 % (0.0-2.0); LYMPHOCYTES # (AUTO) 2.1 /CMM (0.8-4.8); LYMPHOCYTES % (AUTO) 27.3 % (20.0-44.0); MEAN CORPUSCULAR HGB CONC 34 g/dl (31.0-36.0); MONOCYTES % (AUTO) 12.4 % (2.0-12.0); NEUTROPHILS # (AUTO) 4.5 /CMM (1.8-8.9); NEUTROPHILS % (AUTO) 58.8 % (43.0-81.0); PLATELET COUNT (AUTO) 167 /CMM (150-450); RDW COEFFICIENT OF VARIATION 15.7 (11.5-15.0)
--- NOTE | 2018-01-26 15:00 | NUR ---
MS RN NOTES PATIENT CLEARED TO DISCHARGE HOME BY DR. SULLIVAN (CARDIO) AND DR. CAMARENA (PULMO). PATIENT IS VERBALIZING IF SHE CAN GO HOME NOW. PLACED CALL TO SHON BAI NP AND LEFT MESSAGE, AWAITING FOR CALL BACK. PATIENT MADE AWARE AND VERBALIZED UNDERSTANDING. WILL CONTINUE TO MONITOR
[2018-01-26 16:00] VITALS: BP 125/77
--- NOTE | 2018-01-26 16:15 | NUR ---
MS RN NOTES PLACED CALL TO [facility] TO FOLLOW-UP REGARDING PATIENT'S REQUEST TO BE DISCHARGED HOME, SPOKE WITH MAXI DALE. LEFT MESSAGE FOR SHON BAI NP. AWAITING FOR CALL BACK.
--- NOTE | 2018-01-26 16:56 | NUR ---
MS RN NOTES RECEIVED CALL BACK FROM SHON BAI NP WITH OK TO DISCHARGE PATIENT HOME, TO FOLLOW-UP WITH DR. BAEZA POST DISCHARGE. PATIENT MADE AWARE AND VERBALIZED UNDERSTANDING. PATIENT VERBALIZED THAT SHE HAS SCHEDULE FOR FOLLOW-UP APPOINTMENT WITH DR. BAEZA ON 01/30/18 AT 0800. CASE MANAGEMENT MADE AWARE
[2018-01-26 17:00] VITALS: BP 125/77
--- NOTE | 2018-01-26 17:53 | NUR ---
MS RN NOTES PATIENT FOR DISCHARGE HOME TODAY. DISCHARGE TEACHING AND INSTRUCTIONS GIVEN AND VERBALIZED UNDERSTANDING. PATIENT SEEN BY DR. BAEZA PRIOR TO LEAVING UNIT. PICC LINE INTACT AND PATENT, NO SWELLING OR BLEEDING ON SITE. TO LEAVE ON PATIENT PATIENT RECEIVES WEEKLY IV THERAPY AT MD OFFICE. MD AWARE. ALL BELONGINGS COMPLETE ON DISCHARGE, NO REPORT OF MISSING INVENTORY. PATIENT REFUSED TO TAKE CARVEDILOL PRIOR TO DISCHARGE, VERBALIZED THAT SHE NORMALLY TAKES MEDICATION AT BEDTIME AND WOULD WANT TO PREFER THAT SHE TAKES HER OWN CARVEDILOL WHEN SHE GOES HOME TODAY. RISKS AND BENEFITS EXPLAINED BUT PATIENT INSISTED THAT SHE WILL TAKE HER OWN CARVEDILOL AT HOME. RESPECTED PATIENT RIGHTS. MD AWARE. PATIENT LEFT UNIT AT 1750 IN STABLE CONDITION. LEFT UNIT VIA WHEELCHAIR ACCOMPANIED BY SON AND NURSING STAFF. PATIENT BREATHING EVEN AND UNLABORED. NO SOB OR ACUTE DISTRESS. NO CHANGES IN LOC NOTED. PATIENT ASSISTED DURING TRANSFER TO PARKING LOT. LEFT VIA PRIVATE CAR. MD AWARE OF DISCHARGE.
== END 2018-01-26 17:50 | disposition home health service (06) | DRG 291 ==
LOC: ER 14:46 → TELE 17:59 → MED 01-25 08:57
PROVIDERS: ADMIT Hospitalist; ATTEND Hospitalist
DX: I13.0 Hypertensive heart and chronic kidney disease with heart failure and stage 1 through stage 4 chronic kidney disease, or unspecified chronic kidney disease (principal); I50.33 Acute on chronic diastolic (congestive) heart failure; C85.80 Other specified types of non-Hodgkin lymphoma, unspecified site; E78.5 Hyperlipidemia, unspecified; F41.9 Anxiety disorder, unspecified; I25.10 Atherosclerotic heart disease of native coronary artery without angina pectoris; I48.91 Unspecified atrial fibrillation; Z95.5 Presence of coronary angioplasty implant and graft; R91.8 Other nonspecific abnormal finding of lung field; R79.89 Other specified abnormal findings of blood chemistry; K21.9 Gastro-esophageal reflux disease without esophagitis; E66.9 Obesity, unspecified; Z68.38 Body mass index [BMI] 38.0-38.9, adult; G47.30 Sleep apnea, unspecified; N18.9 Chronic kidney disease, unspecified; D69.59 Other secondary thrombocytopenia; E11.22 Type 2 diabetes mellitus with diabetic chronic kidney disease; D64.9 Anemia, unspecified
CPT/HCPCS: 36415; 71045-TC; 71250-TC; 80048-TC; 80061-TC; 80076-TC; 82962-TC; 83540-TC; 83735-TC; 83880; 84100-TC; 84443-TC; 84484-TC; 85025-TC; 85730-TC; 87081-TC; 93307-TC; 97116-TC; 97530-TC; A4606; J1815; J1940; Z7610

== ENCOUNTER 2018-04-29 15:52 | Emergency (ER) | END 2018-04-29 17:38 | disposition home or self-care (01) | DX: M54.5 Low back pain (principal); G89.29 Other chronic pain; I13.0 Hypertensive heart and chronic kidney disease with heart failure and stage 1 through stage 4 chronic kidney disease, or unspecified chronic kidney disease; I50.9 Heart failure, unspecified; N18.9 Chronic kidney disease, unspecified; E11.22 Type 2 diabetes mellitus with diabetic chronic kidney disease; I25.2 Old myocardial infarction; E78.00 Pure hypercholesterolemia, unspecified; Z85.72 Personal history of non-Hodgkin lymphomas; Z96.611 Presence of right artificial shoulder joint; Z88.5 Allergy status to narcotic agent; Z88.6 Allergy status to analgesic agent; Z88.9 Allergy status to unspecified drugs, medicaments and biological substances; Z79.82 Long term (current) use of aspirin; Z79.4 Long term (current) use of insulin ==

== ENCOUNTER 2018-11-20 17:34 | Emergency (ER) | payer MEDICARE, OTHER ==
[~2018-11-20] VITALS: Ht 142.2 cm; Wt 93.0 kg
[~2018-11-20 17:34] MED LIST changes: +ONDA8TAB13 SL; -RITU10VI IV
[2018-11-20 18:20] LABS: BASOPHILS # (AUTO) 0.1 /CMM (0.0-0.2); BASOPHILS % (AUTO) 0.6 % (0.0-2.0); EOSINOPHILS % (AUTO) 5.1 % (0.0-6.0); HEMATOCRIT 34 % (33-45); HEMOGLOBIN 11.3 g/dL (11.5-14.8); LYMPHOCYTES % (AUTO) 29.3 % (20.0-44.0); MEAN CORPUSCULAR HGB CONC 33 g/dl (31.0-36.0); MEAN CORPUSCULAR VOLUME 91 fL (82-100); MONOCYTES # (AUTO) 1.2 /CMM (0.1-1.30); MONOCYTES % (AUTO) 11.8 % (2.0-12.0); NEUTROPHILS # (AUTO) 5.4 /CMM (1.8-8.9); NEUTROPHILS % (AUTO) 53.2 % (43.0-81.0); PLATELET COUNT (AUTO) 213 /CMM (150-450); RED BLOOD CELL COUNT(AUTO) 3.75 MIL/uL (4.0-5.2); WHITE BLOOD COUNT (AUTO) 10.2 K/uL (4.3-11.0)
--- NOTE | 2018-11-20 18:30 | NUR ---
PATIENT ARRIVED AT UNIT FROM MD OFFICE, REPORTING SHE WAS DIAGNOSED WITH PNA LAST WEEK BUT IS STILL HAVING SOB, CONGESTION. PATIENT A/O X 4, NO ACUTE DISTRESS AT THIS TIME. NO CHANGES IN LOC NOTED. PATIENT CALM AND RELAXED. PATIENT NOTED WITH PAM 2 LUMEN PICCLINE INTACT AND PATENT.
--- NOTE | 2018-11-20 18:31 | NUR ---
BLOOD COLLECTED AND SENT TO LAB
[2018-11-20 18:51] LABS: APPEARANCE,URINE Clear (CLEAR); BILIRUBIN,URINE Negative (NEGATIVE); BLOOD, URINE Trace-intact Ery/uL (NEGATIVE); COLOR,URINE Yellow (YELLOW); KETONES,URINE Negative (NEGATIVE); LEUKOCYTE ESTERASE ,URINE Negative (NEGATIVE); NITRITE, URINE Negative (NEGATIVE); PROTEIN,URINE Negative (NEGATIVE); UGLUCOSE Negative (NEGATIVE); UROBILINOGEN,URINE 0.2 EU/dL (0.2)
[2018-11-20 18:51] LABS: CARBON DIOXIDE 24 mmol/L (21-32); CHLORIDE 104 mmol/L (98-107); POTASSIUM 4.1 mmol/L (3.5-5.1); SODIUM SERUM 139 mmol/L (136-145)
[2018-11-20 18:52] LABS: BILIRUBIN,DIRECT 0.1 mg/dL (0.0-0.2); BILIRUBIN,TOTAL 0.2 mg/dL (0.2-1.0); CALCIUM, SERUM 9.3 mg/dL (8.5-10.1); CREATININE 1.1 mg/dL (0.6-1.3); GLUCOSE 140 mg/dL (74-106); UREA NITROGEN, BLOOD 22 mg/dL (7-18)
[2018-11-20 18:53] LABS: ALANINE AMINOTRANSFERASE 19 U/L (12-78); ALBUMIN 3.6 g/dL (3.4-5.0); ALKALINE PHOSPHATASE 92 U/L (46-116); ASPARTATE AMINOTRANSFERASE 12 U/L (15-37); TOTAL PROTEIN, SERUM 6.7 g/dL (6.4-8.2)
[2018-11-20] MEDS ORDERED: IPRATROPIUM NEB FS 0.5 MG/2.5 ML AMPUL.NEB NEB ONE (19:00)
[2018-11-20] MEDS ORDERED: ALBUTEROL FS 2.5 MG/3 ML VIAL.NEB NEB ONE (19:00)
--- NOTE | 2018-11-20 19:00 | NUR ---
CALLED RT FOR BREATHING TX
[2018-11-20 19:01] LABS: BACTERIA,URINE Rare /HPF (None Seen); SQUAMOUS EPITHELIAL CELL,UR Few /HPF (None Seen); WBC,URINE NONE SEEN /HPF (0-3)
[2018-11-20] MEDS ORDERED: ALBUTEROL FS 2.5 MG/3 ML VIAL.NEB ONE (19:04)
[2018-11-20] MEDS ORDERED: IPRATROPIUM NEB FS 0.5 MG/2.5 ML AMPUL.NEB ONE (19:04)
--- NOTE | 2018-11-20 19:32 | NUR ---
REPORT GIVEN TO DANYELL ESCOBAR FOR LAURY
[2018-11-20 20:34] VITALS: BP 137/79
--- NOTE | 2018-11-20 20:34 | NUR ---
Patient discharged to home in stable condition. Written and verbal after care instructions given. Patient verbalizes understanding of instruction. Pt ambulatory with a steady gait
== END 2018-11-20 20:35 | disposition home or self-care (01) ==
LOC: ER 17:34
DX: R06.02 Shortness of breath (principal); I11.0 Hypertensive heart disease with heart failure; I50.9 Heart failure, unspecified; I25.2 Old myocardial infarction; E11.9 Type 2 diabetes mellitus without complications; E78.00 Pure hypercholesterolemia, unspecified; Z85.72 Personal history of non-Hodgkin lymphomas; Z79.4 Long term (current) use of insulin; Z79.82 Long term (current) use of aspirin; Z88.5 Allergy status to narcotic agent; Z88.6 Allergy status to analgesic agent
CPT/HCPCS: 36415; 71045-TC; 80048-TC; 80076-TC; 81000-TC; 83605-TC; 83880; 84484-TC; 85025-TC; 85730-TC; 87040-TC; 87086-TC

== ENCOUNTER 2018-12-14 12:48 | Inpatient (IN) | payer MEDICARE, OTHER ==
[~2018-12-14] VITALS: Ht 165.1 cm; Wt 88.7 kg
[2018-12-14] MEDS ORDERED: ASPIRIN 81 MG TAB.CHEW PO ONE (13:00)
[2018-12-14] MEDS ORDERED: NITROGLYCERIN PACKET 1 GM PACKET TD ONE (13:00)
[2018-12-14] MEDS ORDERED: FUROSEMIDE 40 MG/4 ML VIAL IV ONE (13:00)
--- NOTE | 2018-12-14 13:01 | NUR ---
SEEN AND EXAMINED BY .
[2018-12-14] MEDS ORDERED: ASPIRIN 325 MG TABLET ONE (13:08)
[2018-12-14] MEDS ORDERED: NITROGLYCERIN PACKET 1 GM PACKET ONE (13:08)
[2018-12-14] MEDS ORDERED: FUROSEMIDE 40 MG/4 ML VIAL ONE (13:08)
--- NOTE | 2018-12-14 13:08 | NUR ---
PT SENT FROM DR. SULLIVAN'S OFFICE FOR FOR LOWER EXTREMITY EDEMA, PT IS AAOX4, NOT IN RESPIRATORY DISTRESS, HOOKED TO MONITOR, KEPT RESTED AND COMFORTABLE, WILL CONTINUE TO MONITOR,
[2018-12-14] MEDS ORDERED: ASPIRIN 81 MG TAB.CHEW ONE (13:16)
--- NOTE | 2018-12-14 13:20 | NUR ---
BLOOD DRAWNED AND SENT TO LAB.
[2018-12-14 13:21] LABS: BASOPHILS # (AUTO) 0.1 /CMM (0.0-0.2); BASOPHILS % (AUTO) 0.5 % (0.0-2.0); EOSINOPHILS % (AUTO) 2.3 % (0.0-6.0); HEMATOCRIT 34 % (33-45); HEMOGLOBIN 11.5 g/dL (11.5-14.8); LYMPHOCYTES # (AUTO) 2.9 /CMM (0.8-4.8); LYMPHOCYTES % (AUTO) 24.9 % (20.0-44.0); MEAN CORPUSCULAR HGB CONC 33 g/dl (31.0-36.0); MEAN CORPUSCULAR VOLUME 90 fL (82-100); MONOCYTES # (AUTO) 1.4 /CMM (0.1-1.30); NEUTROPHILS # (AUTO) 6.9 /CMM (1.8-8.9); NEUTROPHILS % (AUTO) 60.3 % (43.0-81.0); PLATELET COUNT (AUTO) 198 /CMM (150-450); RED BLOOD CELL COUNT(AUTO) 3.81 MIL/uL (4.0-5.2); WHITE BLOOD COUNT (AUTO) 11.5 K/uL (4.3-11.0)
[2018-12-14 13:28] LABS: CALCIUM, SERUM 9.6 mg/dL (8.5-10.1); CARBON DIOXIDE 31 mmol/L (21-32); CHLORIDE 105 mmol/L (98-107); CREATININE 1.2 mg/dL (0.6-1.3); GLUCOSE 118 mg/dL (74-106); POTASSIUM 4.2 mmol/L (3.5-5.1); SODIUM SERUM 143 mmol/L (136-145); UREA NITROGEN, BLOOD 24 mg/dL (7-18)
[2018-12-14 13:43] LABS: ALANINE AMINOTRANSFERASE 19 U/L (12-78); ALBUMIN 3.8 g/dL (3.4-5.0); ALKALINE PHOSPHATASE 111 U/L (46-116); ASPARTATE AMINOTRANSFERASE 12 U/L (15-37); B-TYPE NATRIURETIC PEPTIDE 1607 PG/ML (0-125); BILIRUBIN,DIRECT 0.1 mg/dL (0.0-0.2); BILIRUBIN,TOTAL 0.3 mg/dL (0.2-1.0); TOTAL PROTEIN, SERUM 6.8 g/dL (6.4-8.2)
[2018-12-14] MEDS ORDERED: MAG HYDROX/AL HYDROX/SIMETH 30 ML UDC PO PRN (14:30)
[2018-12-14] MEDS ORDERED: HYDROCODONE/APAP 5/325MG 1 EACH TABLET PO PRN (14:30)
[2018-12-14] MEDS ORDERED: ONDANSETRON HCL/PF 4 MG/2 ML VIAL IVP PRN (14:30)
[2018-12-14] MEDS ORDERED: DILTIAZEM HCL CD 240 MG PO PRN (14:30)
[2018-12-14] MEDS ORDERED: INSULIN REGULAR, HUMAN 100 UNIT/ML 3 ML VIAL SQ PRN (14:30)
[2018-12-14] MEDS ORDERED: Z GUARD REMEDY 2 OZ OINT TP PRN (14:30)
[2018-12-14] MEDS ORDERED: MAGNESIUM HYDROXIDE 30 ML UDC PO PRN (14:30)
[2018-12-14] MEDS ORDERED: ZOLPIDEM TARTRATE 5 MG TABLET PO PRN (14:30)
[2018-12-14] MEDS ORDERED: BUMETANIDE INJ 1 MG in IV NS 0.9% 40 ML IV ONE (14:30)
[2018-12-14] MEDS ORDERED: ACETAMINOPHEN 325 MG TABLET PO PRN (14:30)
--- NOTE | 2018-12-14 14:36 | NUR ---
REPORT GIVEN TO SHAWN RASHEED FOR LAURY.
[2018-12-14 15:10] VITALS: BP 127/68
[2018-12-14 16:00] VITALS: BP 128/76
--- NOTE | 2018-12-14 16:37 | NUR ---
MS CONVENTION SERVICES MANAGER NOTES RECEIVED PT FROM ER; REPORT GIVEN BY KAMI VIA PHONE. PT ARRIVED AT 1500 IN A GURNEY; ABLE TO AMBULATE GOING INSIDE THE ROOM AND TO THE BED WITH FWW (OWNED BY PT). PT A/OX4; UGANDAN SPEAKING BUT CAN SPEAK AND UNDERSTAND TANZANIAN MOST OF THE TIMES. PT TOLERATING RA, WITH NO ACUTE RESPIRATORY DISTRESS. PT DENIES ANY PAIN OR DISCOMFORT. PT HAS PICC LINE WITH 2 LUMENS TO PAM, FLUSHED WITH NS, INTACT AND OPERATIONAL. ADMITTING MD/GA AWARE OF ADMISSION, ORDERS PLACED. VS STABLE AND RECORDED. SKIN INTACT. BLE EDEMA, NON-PITTING. PHARMACY VERIFIED MEDICATIONS WITH PT WELL. PT ABLE TO PROVIDE INFORMATION ON ADMISSION AND HISTORY. PT REFUSES FLU AND PNA VACCINE PER HER PREFERENCE. PT REQUESTED BEDSIDE COMMODE DUE TO CURRENT INTAKE OF DIURETICS. PT AND FAMILY MEMBERS ORIENTED TO STAFFS, ROOM, MEAL TIMES, ETC. PT KEPT COMFORTABLE IN BED. CALL LIGHT AND FLUID KEPT WITHIN REACH. PT'S BED IN LOWEST, LOCKED POSITION WITH SRX2. WILL CONTINUE PLAN OF CARE.
[2018-12-14] MEDS ORDERED: DEXTROSE 50%-WATER 50 ML DISP.SYRIN IV PRN (17:00)
[2018-12-14] MEDS: BLOOD SUGAR DIAGNOSTIC 1 EACH STRIP IN SCH ×2 (17:15→23:37)
[2018-12-14] MEDS: INSULIN REGULAR, HUMAN 100 UNIT/ML 3 ML VIAL SQ PRN ×3 (17:17→23:38)
--- NOTE | 2018-12-14 18:48 | NUR ---
MS RN CLOSING NOTES PT REMAINS IN BED. PT A/OX4; AMHARIC SPEAKING BUT CAN SPEAK AND UNDERSTAND LIBYAN MOST OF THE TIMES. PT TOLERATING RA, WITH NO ACUTE RESPIRATORY DISTRESS. PT DENIES ANY PAIN OR DISCOMFORT. FAMILY PRESENT AT BEDSIDE. PT HAS PICC LINE WITH 2 LUMENS TO PAM, FLUSHED WITH NS, INTACT AND OPERATIONAL.ALL NEEDS AND CARE ATTENDED. PT KEPT COMFORTABLE IN BED. CALL LIGHT AND FLUID KEPT WITHIN REACH. PT'S BED IN LOWEST, LOCKED POSITION WITH SRX2. MILY TO INCOMING NIGHT NURSE FOR LAURY.
[2018-12-14] MEDS ORDERED: IPRATROPIUM/ALBUTEROL INHALER NEB PRN (19:00)
[2018-12-14] MEDS ORDERED: ALBUTEROL FS 2.5 MG/0.5 ML VIAL.NEB NEB PRN (19:30)
--- NOTE | 2018-12-14 19:30 | NUR ---
RN INITIAL NOTES: RECEIVED REPORT FROM WILI ESCOBAR. PT IN BED, A/O X4, SOUTH KOREAN SPEAKING, BUT ABLE TO UNDERSTAND AND SPEAK YEMENI. MET WITH PT'S FAMILY AT BED SIDE. PT HAS PAM PICC LINE DOUBLE LUMEN, ABLE TO FLUSH WITH SALINE WITHOUT ANY RESISTANCE HOWEVER NO BLOOD RETURN NOTED. ACCDG TO PT, SHE HAD PICC LINE INSERTED A YEAR AGO FOR CHEMOTHERAPY, LAST CHEMO 2MONTHS AGO. PT USES BED SIDE COMMODE. DISCUSSED PLAN OF CARE TO PT AND FAMILY. PT REFUSING TO USE HER OXYGEN, 95% ON RA. REFUSED TO ELEVATE LEGS ON PILLOWS. SAFETY PRECAUTIONS FOR FALL INITIATED, CALL LIGHT IN REACH, WILL CONTINUE MONITORING PT.
[2018-12-14 20:00] VITALS: BP 148/68
[2018-12-14] MEDS: IPRATROPIUM NEB FS 0.5 MG/2.5 ML AMPUL.NEB NEB PRN (21:31)
--- NOTE | 2018-12-14 21:56 | NUR ---
RN NOTES: PT REQUESTED FOR BREATHING TX, INFORMED RT BERNABE, CAME TO GIVE THE PRN TREATMENT. NOW, PT COMPLAINING THAT RT DIDNT GIVE THE NEB, BECAUSE IT FINISH QUICKLY. EXPLAIN TO PT ABOUT THE MEDICATION.NEB, PT CAN GET THE BREATHING TX Q4HRS PRN, FOR NOW ALL PT REQUEST IS TO GET WATER, NO FURTHER COMPLAINTS NOTED.
--- NOTE | 2018-12-14 23:16 | NUR ---
RT NOTE @2150 RT FINISHED ADMINISTERING PRN TX. PT COMPLAINED THAT NEB FINISHED QUICKLY. RT INFORMED SHAWN DIXON OF PT COMPLAINT. SHAWN DIXON EDUCATED PT ON NEBULIZER MEDICATION. SHAWN DIXON NOTIFIED AND AWARE. NO SOB NOTED.
--- NOTE | 2018-12-14 23:38 | NUR ---
ACU CHECK 153: CHECKED PT'S BLOOD SUGAR, RESULT OBTAINED IS 153, PT REFUSED FOR INSULIN COVERAGE. EDUCATION PROPVIDED TO PT REGARDING RISK AND BENEFITS OF GLYCEMIC CONTROL. PT A/O X4. CLAIMED SHE ONLY GET INSULIN ONCE HER BS GREATER THAN 200.
--- NOTE | 2018-12-15 01:09 | NUR ---
RN NOTES: PT COMPLAINING OF SOB, SPO2 ON RA 92%, PT USES OXYGEN AT HOME 2-3L, BUT BEEN REFUSING TO USE IT SINCE LAST NIGHT. ENCOURAGED PT TO USE OXYGEN, NOW ON 2.5L SPO2 95-96%.PRN BREATHING TX DUE AT 0130AM, BUT PT REFUSING FOR IT. EDUCATION PROVIDED TO PT. WILL CONTINUE TO MONITOR.
[2018-12-15 03:04] VITALS: BP 116/62
--- NOTE | 2018-12-15 03:22 | NUR ---
RN NOTES: PT C/O CHEST PRESSURE NON RADIATING, OFFERED PAIN MEDICATION AND BREATHING TREATMENT, BUT PT BEEN REFUSING. EDUCATION PROVIDED TO PT. VS TAKEN AND RECORDED. NOTIFIED MD CARE TRANSITION MANAGER, PER MD TO GIVE NITRO SL, AND ALBUTEROL TX 3ML. ORDER READ BACK AND COMPLETED.
--- NOTE | 2018-12-15 03:28 | NUR ---
RN NOTES: SPOKED WITH PT AGAIN, INFORMED ABOUT MD'S RECOMMENDATION FOR NITRO SL AND BREATHING TREATMENT. PT STATED SHE WOULD RATHER HAVE NORCO NOW, AND AGREE FOR BREATHING TREATMENT AT THIS TIME.
[2018-12-15] MEDS ORDERED: NITROGLYCERIN 0.4 MG/TAB BOTTLE SL PRN (03:30)
[2018-12-15] MEDS ORDERED: ALBUTEROL FS 2.5 MG/3 ML VIAL.NEB NEB PRN (03:30)
[2018-12-15] MEDS: IPRATROPIUM NEB FS 0.5 MG/2.5 ML AMPUL.NEB NEB PRN (03:34)
--- NOTE | 2018-12-15 03:34 | NUR ---
PRN NORCO: PT REQUESTED FOR NORCO. PT X/O 10 NON RADIATING CHEST PRESSURE, PRN NORCO 5/325 MG TAB PO ADMINISTER TO PT AT THIS TIME.
--- NOTE | 2018-12-15 03:51 | NUR ---
RN NOTES: ON SINUS RHYTHM WITH FIRST DEGREE AV BLOCK
--- NOTE | 2018-12-15 04:34 | NUR ---
RN NOTES: PT CLAIMED NORCO HELPED WITH HER CHEST PRESSURE, STATED IT ALSO HELP HER FALL ASLEEP
[2018-12-15] MEDS: INSULIN REGULAR, HUMAN 100 UNIT/ML 3 ML VIAL SQ PRN (06:06)
[2018-12-15] MEDS: BLOOD SUGAR DIAGNOSTIC 1 EACH STRIP IN SCH ×3 (06:07→18:20)
--- NOTE | 2018-12-15 06:30 | NUR ---
RN NOTES: PT ON DAILY WEIGHT, USING BED SCALE, ONE PILLOW ONLY, NO BLANKET, PT LAYING FLAT ON BED, WEIGHT APPEARS TO BE 195.0 LBS. NOTIFIED CIGAR WRAPPER BECAUSE ADMISSION WEIGHT PER DOCUMENTATION SHOWS 185 LBS. RECHECK THE WEIGHT AGAIN USING CHAIR SCALE, WEIGHT SHOWS 195.0 LBS. NOTIFIED CIGAR WRAPPER.
--- NOTE | 2018-12-15 06:45 | NUR ---
RN CLOSING NOTES: PT REMAINS A/O X4, ON 2.5 L OXYGEN VIA NC, STATED SHE FELT A LOT BETTER WITH THE NORCO. IV ACCESS PATENT AND FLUSHING WELL, ON HL. PT REMAINS ON SINUS RHYTHM WITH 1ST DEGREE AV BLOCK HR 66. VS REMAINS STABLE, NEEDS ATTENDED. SAFETY PRECAUTIONS FOR FALL REMAINS ENGAGED, CALL LIGHT IN REACH, WILL ENDORSE TO DAY RN FOR CONTINUITY OF CARE.
[2018-12-15 07:22] LABS: BASOPHILS % (AUTO) 0.3 % (0.0-2.0); EOSINOPHILS % (AUTO) 1.8 % (0.0-6.0); HEMATOCRIT 33 % (33-45); HEMOGLOBIN 11.2 g/dL (11.5-14.8); LYMPHOCYTES # (AUTO) 2.5 /CMM (0.8-4.8); LYMPHOCYTES % (AUTO) 22.1 % (20.0-44.0); MEAN CORPUSCULAR HGB CONC 34 g/dl (31.0-36.0); MEAN CORPUSCULAR VOLUME 89 fL (82-100); MONOCYTES # (AUTO) 1.1 /CMM (0.1-1.30); MONOCYTES % (AUTO) 10.3 % (2.0-12.0); NEUTROPHILS # (AUTO) 7.3 /CMM (1.8-8.9); NEUTROPHILS % (AUTO) 65.5 % (43.0-81.0); PLATELET COUNT (AUTO) 194 /CMM (150-450); RED BLOOD CELL COUNT(AUTO) 3.73 MIL/uL (4.0-5.2); WHITE BLOOD COUNT (AUTO) 11.1 K/uL (4.3-11.0)
[2018-12-15] MEDS: PANTOPRAZOLE 40 MG TABLET.DR PO SCH (07:30)
--- NOTE | 2018-12-15 07:30 | NUR ---
LOADER MALT HOUSE OPENING NOTES Patient received on 2.5 L o2 nasal cannula, no sob noted, patient denies pain at this time. Patient remains a/o x4, PAM PICC line present, strict I&O. Bed at the lowest setting, call light within reach, side rails up x2.
[2018-12-15 07:33] LABS: CALCIUM, SERUM 9.4 mg/dL (8.5-10.1); CARBON DIOXIDE 26 mmol/L (21-32); CHLORIDE 103 mmol/L (98-107); CREATININE 1.3 mg/dL (0.6-1.3); GLUCOSE 156 mg/dL (74-106); MAGNESIUM 1.9 mg/dL (1.8-2.4); PHOSPHORUS 4.3 mg/dL (2.5-4.9); POTASSIUM 3.6 mmol/L (3.5-5.1); SODIUM SERUM 142 mmol/L (136-145); UREA NITROGEN, BLOOD 25 mg/dL (7-18)
[2018-12-15 07:36] LABS: CHOLESTEROL 243 mg/dL (<200); HDL CHOLESTEROL 44 mg/dL (40-60); LDL 174 mg/dL (0-99); TRIGLYCERIDES 173 mg/dL (30-150)
[2018-12-15 08:00] VITALS: BP 142/52
[2018-12-15] MEDS: CARVEDILOL 12.5 MG TABLET PO SCH (08:28)
[2018-12-15] MEDS: ATORVASTATIN 40 MG TABLET PO SCH (08:28)
[2018-12-15] MEDS: LINAGLIPTIN 5 MG TABLET PO SCH (08:28)
[2018-12-15] MEDS: FOLIC ACID 1 MG TABLET PO SCH (08:28)
[2018-12-15] MEDS: ASPIRIN 81 MG TAB.CHEW PO SCH (08:28)
[2018-12-15] MEDS: FUROSEMIDE 100 MG/10 ML VIAL IV SCH ×3 (08:29→16:26)
[2018-12-15] MEDS: VALSARTAN 80 MG TABLET PO SCH (08:43)
[2018-12-15] MEDS: METOLAZONE 2.5 MG TABLET PO SCH (08:43)
--- NOTE | 2018-12-15 12:12 | NUR ---
RN NOTES Patient refused blood glucose check x3.
[2018-12-15] MEDS ORDERED: ALTEPLASE CATHFLO 2 MG/VIAL XX STA (14:41)
[2018-12-15 16:00] VITALS: BP 142/52
--- NOTE | 2018-12-15 18:21 | NUR ---
RN MS CLOSING NOTES Patient remains on 2.5 L nasal cannula, patient puts it on adn off. Patient remains a/o x4, denies pain at this time, and has stable vital signs all shift. Patient able to go to the restroom with minimal help and has good gait. PAM PICC line now able to be flushed and draw blood from. patient's BS around 1810 was 151, patient refused insulin x3. Bed at the lowest setting, call light within reach. Will give report to NOC RN for LAURY bedside.
[2018-12-15 20:00] VITALS: BP 133/67
[2018-12-16] MEDS: BLOOD SUGAR DIAGNOSTIC 1 EACH STRIP IN SCH ×4 (00:17→18:00)
--- NOTE | 2018-12-16 06:18 | NUR ---
MS RN NOTES AWAKE & RESPONSIVE. NOT IN ANY DISTRESS. NO SOB NOTED. DENIES ANY PAIN OR DISCOMFORT AT THIS TIME. MONITORED ACCORDINGLY. CALL LIGHT WITHIN REACH. BED IN LOWEST POSITION. SR UP X 2 WITH BED ALARM ON FOR SAFETY. WILL ENDORSE TO NEXT SHIFT.
[2018-12-16] MEDS: INSULIN REGULAR, HUMAN 100 UNIT/ML 3 ML VIAL SQ PRN ×2 (06:23→12:11)
[2018-12-16 07:04] LABS: BASOPHILS % (AUTO) 0.4 % (0.0-2.0); HEMATOCRIT 34 % (33-45); HEMOGLOBIN 11.3 g/dL (11.5-14.8); LYMPHOCYTES % (AUTO) 33.5 % (20.0-44.0); MEAN CORPUSCULAR HGB CONC 34 g/dl (31.0-36.0); MEAN CORPUSCULAR VOLUME 89 fL (82-100); MONOCYTES # (AUTO) 0.8 /CMM (0.1-1.30); MONOCYTES % (AUTO) 9.2 % (2.0-12.0); NEUTROPHILS # (AUTO) 4.8 /CMM (1.8-8.9); NEUTROPHILS % (AUTO) 53.9 % (43.0-81.0); PLATELET COUNT (AUTO) 192 /CMM (150-450); RED BLOOD CELL COUNT(AUTO) 3.76 MIL/uL (4.0-5.2); WHITE BLOOD COUNT (AUTO) 8.9 K/uL (4.3-11.0)
--- NOTE | 2018-12-16 07:15 | NUR ---
MS RN NOTES PATIENT IN BED ALERT ORIENTED X 4. NO ACUTE DISTRESS NOTED, BREATHING UNLABORED. IV ACCESS PATENT AND INTACT, NO REDNESS OR SWELLING NOTED.SAFETY MEASURES IN PLACE. CALL LIGHT WITHIN REACH. WILL CONTINUE TO MONITOR ACCORDINGLY.
[2018-12-16] MEDS: PANTOPRAZOLE 40 MG TABLET.DR PO SCH (07:30)
[2018-12-16 07:31] LABS: ALANINE AMINOTRANSFERASE 17 U/L (12-78); ALBUMIN 3.6 g/dL (3.4-5.0); ALKALINE PHOSPHATASE 103 U/L (46-116); ASPARTATE AMINOTRANSFERASE 13 U/L (15-37); BILIRUBIN,TOTAL 0.5 mg/dL (0.2-1.0); CALCIUM, SERUM 9.4 mg/dL (8.5-10.1); CARBON DIOXIDE 28 mmol/L (21-32); CHLORIDE 100 mmol/L (98-107); CREATININE 1.4 mg/dL (0.6-1.3); GLUCOSE 155 mg/dL (74-106); MAGNESIUM 1.9 mg/dL (1.8-2.4); PHOSPHORUS 4.5 mg/dL (2.5-4.9); POTASSIUM 3.3 mmol/L (3.5-5.1); SODIUM SERUM 141 mmol/L (136-145); TOTAL PROTEIN, SERUM 6.8 g/dL (6.4-8.2); UREA NITROGEN, BLOOD 27 mg/dL (7-18)
[2018-12-16 08:00] VITALS: BP 150/76
[2018-12-16] MEDS: ATORVASTATIN 40 MG TABLET PO SCH (09:00)
[2018-12-16] MEDS: METOLAZONE 2.5 MG TABLET PO SCH (09:00)
[2018-12-16] MEDS ORDERED: FUROSEMIDE 40 MG TABLET PO SCH (09:00)
[2018-12-16] MEDS: VALSARTAN 80 MG TABLET PO SCH (09:00)
[2018-12-16] MEDS ORDERED: POTASSIUM CHLORIDE 20 MEQ TAB.PRT.SR PO SCH (09:00)
[2018-12-16] MEDS ORDERED: MUPIROCIN OINT 2% 22 GM TUBE SCH (09:00)
[2018-12-16] MEDS: ASPIRIN 81 MG TAB.CHEW PO SCH (09:58)
[2018-12-16] MEDS: LINAGLIPTIN 5 MG TABLET PO SCH (09:59)
[2018-12-16] MEDS: FOLIC ACID 1 MG TABLET PO SCH (09:59)
[2018-12-16] MEDS: CARVEDILOL 12.5 MG TABLET PO SCH (10:00)
[2018-12-16] MEDS: POTASSIUM CHLORIDE 20 MEQ TAB.PRT.SR PO SCH ×2 (11:03→12:08)
[2018-12-16 16:00] VITALS: BP 154/65
[2018-12-16] MEDS ORDERED: BUME1TAB9 PO (16:35)
--- NOTE | 2018-12-16 18:15 | NUR ---
MS RN NOTES PATIENT DISCHARGED HOME WITH STABLE VITAL SIGNS, NO ACUTE DISTRESS NOTED. DISCHARGE INSTRUCTIONS GIVEN INCLUDING FOLLOW UP APPOINTMENT, VERBALIZED UNDERSTANDING. ALL BELONGINGS ACCOUNTED FOR. ASSISTED TO THE LOBBY, PICKED UP VIA PRIVATE CAR IN STABLE CONDITION.
[2018-12-17] MEDS ORDERED: BUMETANIDE (1 MG) 1 MG TABLET PO SCH (09:00)
== END 2018-12-16 18:16 | disposition home or self-care (01) | DRG 291 ==
LOC: ER 12:50 → MED 14:40 → TELE 12-15 03:16 → MED 12-15 08:50
PROVIDERS: ADMIT Family Medicine; ATTEND Nurse Practitioner Acute Care
PROC: 02HV33Z Insertion of Infusion Device into Superior Vena Cava, Percutaneous Approach (ICD-10-PCS; principal; 2018-12-14)
DX: I13.0 Hypertensive heart and chronic kidney disease with heart failure and stage 1 through stage 4 chronic kidney disease, or unspecified chronic kidney disease (principal); I50.43 Acute on chronic combined systolic (congestive) and diastolic (congestive) heart failure; N17.0 Acute kidney failure with tubular necrosis; C85.90 Non-Hodgkin lymphoma, unspecified, unspecified site; D68.59 Other primary thrombophilia; E11.22 Type 2 diabetes mellitus with diabetic chronic kidney disease; E78.5 Hyperlipidemia, unspecified; F41.9 Anxiety disorder, unspecified; D63.8 Anemia in other chronic diseases classified elsewhere; I25.10 Atherosclerotic heart disease of native coronary artery without angina pectoris; I48.91 Unspecified atrial fibrillation; N18.3 Chronic kidney disease, stage 3 (moderate); Z88.8 Allergy status to other drugs, medicaments and biological substances; Z79.4 Long term (current) use of insulin; Z79.82 Long term (current) use of aspirin; Z79.899 Other long term (current) drug therapy; D72.829 Elevated white blood cell count, unspecified; E11.65 Type 2 diabetes mellitus with hyperglycemia; K21.9 Gastro-esophageal reflux disease without esophagitis; I70.0 Atherosclerosis of aorta; E66.9 Obesity, unspecified; Z68.32 Body mass index [BMI] 32.0-32.9, adult; T50.2X5A Adverse effect of carbonic-anhydrase inhibitors, benzothiadiazides and other diuretics, initial encounter; Y92.009 Unspecified place in unspecified non-institutional (private) residence as the place of occurrence of the external cause; Z90.710 Acquired absence of both cervix and uterus; Z82.49 Family history of ischemic heart disease and other diseases of the circulatory system; Z79.84 Long term (current) use of oral hypoglycemic drugs; Z79.01 Long term (current) use of anticoagulants
CPT/HCPCS: 36415; 71045-TC; 76700-TC; 80048-TC; 80053-TC; 80061-TC; 80076-TC; 82962-TC; 83735-TC; 83880; 84100-TC; 84484-TC; 85025-TC; 87081-TC; 93307-TC; A4216; G0378; J1815; J1940; J2997; J3490; J7040

== ENCOUNTER 2019-01-31 11:13 | Inpatient (IN) | payer MEDICARE, OTHER ==
[~2019-01-31] VITALS: Ht 152.4 cm; Wt 93.0 kg
[~2019-01-31 11:13] MED LIST changes: +BUME1TAB9 PO; -FURO40TA5 PO; -LORA-259 PO; -ONDA8TAB13 SL; -TRAM50TA2 PO
--- NOTE | 2019-01-31 11:22 | NUR ---
SOB SINCE YESTERDAY, UNABLE TO URINATE X TODAY. AAOX4. PATIENT CHANGED INTO GOWN, ATTACHED TO FREIGHT ELEVATOR OPERATOR. PATIENT NOTED W/ SOB. RR24 O2 SAT 98% ON RA, NO OXYGEN NEEDED AT THIS TIME. WILL CONTINUE TO MONITOR PATIENT.
--- NOTE | 2019-01-31 11:25 | NUR ---
BLOOD AND URINE SENT TO LAB
[2019-01-31 11:37] LABS: HEMOGLOBIN 11.2 g/dL (11.5-14.8)
[2019-01-31 11:42] LABS: BASOPHILS # (AUTO) 0.1 /CMM (0.0-0.2); BASOPHILS % (AUTO) 0.8 % (0.0-2.0); EOSINOPHILS % (AUTO) 1.1 % (0.0-6.0); HEMATOCRIT 33 % (33-45); LYMPHOCYTES % (AUTO) 23.3 % (20.0-44.0); MEAN CORPUSCULAR HGB CONC 34 g/dl (31.0-36.0); MEAN CORPUSCULAR VOLUME 91 fL (82-100); MONOCYTES # (AUTO) 1.4 /CMM (0.1-1.30); MONOCYTES % (AUTO) 15.9 % (2.0-12.0); NEUTROPHILS # (AUTO) 5.2 /CMM (1.8-8.9); NEUTROPHILS % (AUTO) 58.9 % (43.0-81.0); PLATELET COUNT (AUTO) 182 /CMM (150-450); RED BLOOD CELL COUNT(AUTO) 3.62 MIL/uL (4.0-5.2); WHITE BLOOD COUNT (AUTO) 8.8 K/uL (4.3-11.0)
[2019-01-31 11:46] LABS: CALCIUM, SERUM 9.1 mg/dL (8.5-10.1); CARBON DIOXIDE 27 mmol/L (21-32); CHLORIDE 104 mmol/L (98-107); CREATININE 1.4 mg/dL (0.6-1.3); GLUCOSE 100 mg/dL (74-106); POTASSIUM 4.2 mmol/L (3.5-5.1); SODIUM SERUM 140 mmol/L (136-145); UREA NITROGEN, BLOOD 23 mg/dL (7-18)
[2019-01-31 11:51] LABS: APPEARANCE,URINE Clear (CLEAR); BILIRUBIN,URINE Negative (NEGATIVE); BLOOD, URINE Negative Ery/uL (NEGATIVE); COLOR,URINE Yellow (YELLOW); KETONES,URINE Negative (NEGATIVE); LEUKOCYTE ESTERASE ,URINE Small (NEGATIVE); NITRITE, URINE Negative (NEGATIVE); PROTEIN,URINE Negative (NEGATIVE); UGLUCOSE Negative (NEGATIVE); UROBILINOGEN,URINE 0.2 EU/dL (0.2)
[2019-01-31] MEDS ORDERED: FUROSEMIDE 20 MG/2 ML VIAL ONE (11:51)
[2019-01-31] MEDS ORDERED: FUROSEMIDE 40 MG/4 ML VIAL ONE (11:51)
[2019-01-31 11:58] LABS: EOSINOPHILS % (MANUAL) 1 % (0-4); LYMPHOCYTES % (MANUAL) 22 % (16-48); MONOCYTES % (MANUAL) 15 % (0-11.0); NEUTROPHILS % (MANUAL) 62 (42-76)
[2019-01-31 11:59] LABS: B-TYPE NATRIURETIC PEPTIDE 1473 PG/ML (0-125)
[2019-01-31 12:00] LABS: BACTERIA,URINE None seen /HPF (None Seen); RBC,URINE 0-2 /HPF (0-2); SQUAMOUS EPITHELIAL CELL,UR Few /HPF (None Seen)
[2019-01-31] MEDS ORDERED: FUROSEMIDE 40 MG/4 ML VIAL IV ONE (12:00)
[2019-01-31] MEDS ORDERED: TORS20TA3 PO (12:28)
--- NOTE | 2019-01-31 12:52 | NUR ---
EPIC WORK MEASUREMENT ENGINEER PAGED
[2019-01-31] MEDS ORDERED: DILTIAZEM HCL CD 240 MG PO PRN (13:30)
[2019-01-31] MEDS ORDERED: IPRATROPIUM NEB FS 0.5 MG/2.5 ML AMPUL.NEB NEB ONE (13:30)
[2019-01-31] MEDS ORDERED: IPRATROPIUM NEB FS 0.5 MG/2.5 ML AMPUL.NEB NEB PRN (13:30)
[2019-01-31] MEDS ORDERED: DEXTROSE 50%-WATER 50 ML DISP.SYRIN IV PRN (13:30)
[2019-01-31] MEDS ORDERED: Z GUARD REMEDY 2 OZ OINT TP PRN (13:30)
[2019-01-31] MEDS ORDERED: MAGNESIUM HYDROXIDE 30 ML UDC PO PRN (13:30)
[2019-01-31] MEDS ORDERED: Medication Not On Formulary EA (Esomeprazole Mag Trihydrate (Nexium) 40 MG) PO PRN (13:30)
[2019-01-31] MEDS ORDERED: ONDANSETRON HCL/PF 4 MG/2 ML VIAL IVP PRN (13:30)
[2019-01-31] MEDS ORDERED: MAG HYDROX/AL HYDROX/SIMETH 30 ML UDC PO PRN (13:30)
[2019-01-31] MEDS ORDERED: ALBUTEROL FS 2.5 MG/0.5 ML VIAL.NEB NEB ONE (13:30)
[2019-01-31] MEDS ORDERED: ACETAMINOPHEN 325 MG TABLET PO PRN (13:30)
[2019-01-31] MEDS ORDERED: ALBUTEROL FS 2.5 MG/0.5 ML VIAL.NEB NEB PRN (13:30)
[2019-01-31] MEDS ORDERED: IPRATROPIUM NEB FS 0.5 MG/2.5 ML AMPUL.NEB ONE (13:39)
[2019-01-31] MEDS ORDERED: ALBUTEROL FS 2.5 MG/3 ML VIAL.NEB ONE (13:39)
--- NOTE | 2019-01-31 13:39 | NUR ---
REPORT GIVEN TO OSCAR ESCOBAR FOR LAURY.
--- NOTE | 2019-01-31 14:15 | NUR ---
PATIENT TRANSFERRED TO ROOM 120-2 VIA ACLS PROTOCOL. PATIENT IN STABLE CONDITION, NO RESP DISTRESS NOTED. ENDORSED TO OSCAR ESCOBAR FOR LAURY.
--- NOTE | 2019-01-31 14:20 | NUR ---
GEODESY TEACHERCOMMERCIAL SINGER NOTE.RECEIVED REPORT FROM ER NURSE.[id number] PATIENT VIA GURNEY,ABLE TO WALK WITH WALKER TO BED.AXOX4.MILD WHEEZING WITH NORMAL O2 SAT.ON ROOM AIR.BLE EDEMA.PAM PICCLINE.FLUSHING WELL.ON TELE MONITOR SR WITH 1ST DEGREE AV BLOCK HR66.CALENDER MACHINE OPERATOR HELPER AT BEDSIDE.ADMITTING WITH DIAGNOSIS OF CHF EXACERBATION.BED IS LOCKED AND IN LOW POSITION.CALL LIGHT IN REACH.BED ALARM ON.SRX2.PATIENT WANT ROOM CHANGE.WAITING FOR 107 TO BE CLEAN.WILL CONTINUE TO MONITOR.
[2019-01-31] MEDS ORDERED: BUMETANIDE INJ 8 MG in IV NS 0.9% 48 ML IV ONE (15:00)
[2019-01-31] MEDS: IPRATROPIUM NEB FS 0.5 MG/2.5 ML AMPUL.NEB NEB SCH ×2 (15:30→19:14)
[2019-01-31] MEDS: ALBUTEROL FS 2.5 MG/0.5 ML VIAL.NEB NEB SCH ×2 (15:30→19:15)
[2019-01-31 16:00] VITALS: BP 97/73
--- NOTE | 2019-01-31 16:00 | NUR ---
CO SUPERVISOR GROUNDS AND LANDSCAPE NOTER SEEN BY GABY SHAFER AND .GOT NEW ORDERS.
[2019-01-31 16:02] LABS: CREATININE, URINE < 13.0 MG/DL (30.0-125.0); URINE SODIUM, RANDOM 103 mmol/l (40-220); URINE TOTAL PROTEIN 2.4 mg/dL (0-11.9)
[2019-01-31] MEDS: CEPHALEXIN MONOHYDRATE 500 MG CAPSULE PO SCH (16:30)
[2019-01-31] MEDS: INSULIN REGULAR, HUMAN 100 UNIT/ML 3 ML VIAL SQ PRN ×2 (16:31→22:33)
[2019-01-31] MEDS: BLOOD SUGAR DIAGNOSTIC 1 EACH STRIP IN SCH ×2 (16:36→22:34)
--- NOTE | 2019-01-31 19:01 | NUR ---
TOWER TRUCK DRIVER NOTE PATIENT HAS O2 SAT OF 92% ON RA,WHEEZING NOTED.PLACE ON O2 2L VIA NASAL CANULA.SATURATING 96%.RT MADE AWARE TO GIVE BREATHING TREATMENT.WILL ENDORSE TO PM NURSE FOR LAURY.
[2019-01-31 20:00] VITALS: BP 130/53
--- NOTE | 2019-01-31 20:00 | NUR ---
BUSINESS MANAGEMENT SPECIALIST OPENING NOTES RECEIVED REPORT FROM AM RN. PATIENT A/A/O X3, ABLE TO VERBALIZE NEEDS. BREATHING EVEN & UNLABORED, TOLERATING O2 @ 2-3LPM VIA NC. C/O OF SOME DIFFICULTY BREATHING BUT NOT IN RESPIRATORY DISTRESS, SOME AUDIBLE WHEEZING NOTED. ON TELE W/ SINUS RHYTHM W/ 1ST DEGREE AVB, HR 70S. DENIES ANY CHEST PAIN OR DISCOMFORT. LEFT UPPER ARM PICC LINE INTACT & PATENT W/ DRESSING CDI & ONGOING BUMEX DRIP INFUSING WELL @ 10 ML/HR. ABLE TO USE BEDSIDE COMMODE W/ ASSIST & MOVE INDEPENDENTLY IN BED. SAFETY MEASURES KEPT IN PLACE W/ SIDE RAILS UP & BED ALARM ON. CALL LIGHT PLACED WITHIN REACH & INSTRUCTED TO CALL FOR ASSISTANCE. WILL CONTINUE TO MONITOR.
[2019-02-01] VITALS: BP 124/60
[2019-02-01] MEDS: ALBUTEROL FS 2.5 MG/0.5 ML VIAL.NEB NEB SCH ×4 (01:46→20:11)
[2019-02-01] MEDS: IPRATROPIUM NEB FS 0.5 MG/2.5 ML AMPUL.NEB NEB SCH ×4 (01:46→20:11)
[2019-02-01 04:00] VITALS: BP 125/65
[2019-02-01 07:10] LABS: CARBON DIOXIDE 28 mmol/L (21-32); CHLORIDE 102 mmol/L (98-107); CREATININE 1.5 mg/dL (0.6-1.3); GLUCOSE 153 mg/dL (74-106); MAGNESIUM 2.1 mg/dL (1.8-2.4); PHOSPHORUS 4.8 mg/dL (2.5-4.9); POTASSIUM 3.9 mmol/L (3.5-5.1); SODIUM SERUM 142 mmol/L (136-145); UREA NITROGEN, BLOOD 26 mg/dL (7-18)
--- NOTE | 2019-02-01 07:10 | NUR ---
TOTER INITIAL NOTES Rec'd pt on bed, A/O x 4, denies any pain & SOB. On NC at 3lpm, no SOB. SR on telemonitor. Has PAM PICC line SL, patent & intact w/ no s/sx of infection/infiltration noted. Safety precaution in place w/ bed in lowest & locked pos. Call light placed w/in reach. Educated to call for assistance if she will use BSC w/ verbalization of understanding. Refused bed alarm, stated her caregiver will be taking care of her. Will cont to monitor & attend pt needs.
[2019-02-01 07:12] LABS: BASOPHILS # (AUTO) 0.1 /CMM (0.0-0.2); EOSINOPHILS % (AUTO) 1.2 % (0.0-6.0); HEMATOCRIT 32 % (33-45); LYMPHOCYTES % (AUTO) 28.4 % (20.0-44.0); MEAN CORPUSCULAR HGB CONC 34 g/dl (31.0-36.0); MEAN CORPUSCULAR VOLUME 91 fL (82-100); MONOCYTES % (AUTO) 14.9 % (2.0-12.0); NEUTROPHILS # (AUTO) 3.8 /CMM (1.8-8.9); NEUTROPHILS % (AUTO) 54.5 % (43.0-81.0); PLATELET COUNT (AUTO) 175 /CMM (150-450); RED BLOOD CELL COUNT(AUTO) 3.55 MIL/uL (4.0-5.2); WHITE BLOOD COUNT (AUTO) 6.9 K/uL (4.3-11.0)
[2019-02-01] MEDS: PANTOPRAZOLE 40 MG TABLET.DR PO SCH (07:33)
[2019-02-01] MEDS: BLOOD SUGAR DIAGNOSTIC 1 EACH STRIP IN SCH ×4 (07:33→22:30)
[2019-02-01] MEDS: INSULIN REGULAR, HUMAN 100 UNIT/ML 3 ML VIAL SQ PRN ×4 (07:38→22:30)
[2019-02-01 08:00] VITALS: BP_SYST 124; BP_DIAS 38; BP_DIAS 58
[2019-02-01 08:40] LABS: CHOLESTEROL 244 mg/dL (<200); HDL CHOLESTEROL 50 mg/dL (40-60); LDL 168 mg/dL (0-99); THYROID STIMULATING HORMONE 3.329 uIU/mL (0.358-3.74); TRIGLYCERIDES 172 mg/dL (30-150)
[2019-02-01] MEDS ORDERED: CARVEDILOL 12.5 MG TABLET PO SCH (09:00)
[2019-02-01] MEDS ORDERED: BUMETANIDE (1 MG) 1 MG TABLET PO SCH (09:00)
[2019-02-01] MEDS: ATORVASTATIN 40 MG TABLET PO SCH ×2 (09:00→09:43)
[2019-02-01] MEDS: ASPIRIN 81 MG TAB.CHEW PO SCH (09:06)
[2019-02-01] MEDS: CEPHALEXIN MONOHYDRATE 500 MG CAPSULE PO SCH ×2 (09:07→17:44)
[2019-02-01] MEDS: LINAGLIPTIN 5 MG TABLET PO SCH (09:07)
[2019-02-01] MEDS: FOLIC ACID 1 MG TABLET PO SCH (09:07)
[2019-02-01] MEDS ORDERED: BUMETANIDE INJ 16 MG in IV NS 0.9% 16 ML IV ONE (10:00)
--- NOTE | 2019-02-01 11:30 | NUR ---
GLASS CUTTER HELPER reported to the RN that pt c/o chest discomfort. RN reassessed pt, stated that it's more of pressure and she is worried about her BP. Rechecked BP 136/65. Pt seen & examined by Dr. Hamilton. Before RN left, pt stated that no more pressure on her chest.
[2019-02-01 12:00] VITALS: BP_SYST 100; BP_SYST 136; BP_DIAS 44; BP_DIAS 65
[2019-02-01 16:00] VITALS: BP_SYST 102; BP_SYST 120; BP_DIAS 39; BP_DIAS 66
--- NOTE | 2019-02-01 16:23 | NUR ---
Met with patient,she is alert and oriented. resides at home with 24hrs/7days caregiver. She ambulates with a walker and requires min-mod assist with adl's. Has adequate DME - walker, shower chair, grab bars and home O2. She is dependent on oxygen due to COPD. Her O2 provider is [facility]. She is currently on service with [address] [phone].Patient want to return home once discharge. Caregiver will provide ride when discharge. Addendum: 02/01/19 at 1624 by OH STROUD RN Amended: Links added.
--- NOTE | 2019-02-01 17:00 | NUR ---
Pt seen & examined by Kendra GRIFFIN w/ orders made & carried out.
--- NOTE | 2019-02-01 18:27 | NUR ---
MS RN CLOSING NOTES Pt sitting on the edge of the bed, not in any distress, denies any chest pain/discomfort at this time. No SOB while on NC at 2-3 lpm. PAM PICC line SL, kept patent & intact w/ no s/sx of infection/infiltration noted - s/p bumex infusion. Safety precaution kept in place w/ bed in lowest & locked pos. Call light placed w/in reach. Caregiver at bedside to assist to go to restroom. Family updated about pt status. Will endorse to PM RN for LAURY.
[2019-02-01 20:00] VITALS: BP 91/37
--- NOTE | 2019-02-01 20:00 | NUR ---
RN OPENING NOTES RECEIVED REPORT FROM MISTI Zarate RN. PATIENT A/A/O X3, ABLE TO VERBALIZE NEEDS. BREATHING EVEN & UNLABORED, TOLERATING O2 @ 2-3LPM VIA NC. C/O OF SOME DIFFICULTY BREATHING BUT NOT IN RESPIRATORY DISTRESS, SOME AUDIBLE WHEEZING NOTED. RADIAL PULSES PRESENT. DENIES ANY CHEST PAIN OR DISCOMFORT. LEFT UPPER ARM PICC LINE INTACT & PATENT W/ DRESSING CDI, SALINE LOCKED. ABLE TO USE BEDSIDE COMMODE & MOVE INDEPENDENTLY IN BED. SAFETY MEASURES KEPT IN PLACE W/ SIDE RAILS UP & BED LOCKED IN LOWEST POSITION. CALL LIGHT PLACED WITHIN REACH & INSTRUCTED TO CALL FOR ASSISTANCE. WILL CONTINUE TO MONITOR.
[2019-02-02] VITALS: BP 137/41
[2019-02-02] MEDS: ALBUTEROL FS 2.5 MG/0.5 ML VIAL.NEB NEB SCH ×5 (01:30→13:30)
[2019-02-02] MEDS: IPRATROPIUM NEB FS 0.5 MG/2.5 ML AMPUL.NEB NEB SCH ×5 (01:30→13:30)
[2019-02-02 04:00] VITALS: BP 141/42
[2019-02-02 06:50] LABS: BASOPHILS # (AUTO) 0.1 /CMM (0.0-0.2); BASOPHILS % (AUTO) 0.9 % (0.0-2.0); EOSINOPHILS % (AUTO) 1.6 % (0.0-6.0); HEMATOCRIT 31 % (33-45); HEMOGLOBIN 10.4 g/dL (11.5-14.8); LYMPHOCYTES # (AUTO) 1.9 /CMM (0.8-4.8); LYMPHOCYTES % (AUTO) 28.3 % (20.0-44.0); MEAN CORPUSCULAR HGB CONC 34 g/dl (31.0-36.0); MEAN CORPUSCULAR VOLUME 91 fL (82-100); MONOCYTES % (AUTO) 15.1 % (2.0-12.0); NEUTROPHILS # (AUTO) 3.7 /CMM (1.8-8.9); NEUTROPHILS % (AUTO) 54.1 % (43.0-81.0); PLATELET COUNT (AUTO) 161 /CMM (150-450); RED BLOOD CELL COUNT(AUTO) 3.38 MIL/uL (4.0-5.2); WHITE BLOOD COUNT (AUTO) 6.8 K/uL (4.3-11.0)
[2019-02-02 06:55] LABS: CARBON DIOXIDE 30 mmol/L (21-32); CHLORIDE 102 mmol/L (98-107); CREATININE 1.6 mg/dL (0.6-1.3); GLUCOSE 144 mg/dL (74-106); MAGNESIUM 2.1 mg/dL (1.8-2.4); PHOSPHORUS 4.7 mg/dL (2.5-4.9); POTASSIUM 3.8 mmol/L (3.5-5.1); SODIUM SERUM 142 mmol/L (136-145); UREA NITROGEN, BLOOD 34 mg/dL (7-18)
[2019-02-02] MEDS ORDERED: CARVEDILOL 12.5 MG TABLET PO SCH (07:12)
[2019-02-02 08:00] VITALS: BP 138/34
[2019-02-02] MEDS: BLOOD SUGAR DIAGNOSTIC 1 EACH STRIP IN SCH ×2 (08:07→12:17)
[2019-02-02] MEDS: PANTOPRAZOLE 40 MG TABLET.DR PO SCH (08:07)
[2019-02-02] MEDS: ASPIRIN 81 MG TAB.CHEW PO SCH (08:08)
[2019-02-02] MEDS: LINAGLIPTIN 5 MG TABLET PO SCH (08:08)
[2019-02-02] MEDS: CEPHALEXIN MONOHYDRATE 500 MG CAPSULE PO SCH (08:08)
[2019-02-02] MEDS: FOLIC ACID 1 MG TABLET PO SCH (08:08)
[2019-02-02] MEDS: INSULIN REGULAR, HUMAN 100 UNIT/ML 3 ML VIAL SQ PRN (08:20)
[2019-02-02 08:25] VITALS: BP 140/58
[2019-02-02 12:00] VITALS: BP 125/35
[2019-02-02 12:04] VITALS: BP 125/35
[2019-02-02] MEDS ORDERED: CARV12.52 PO (12:57)
[2019-02-02] MEDS ORDERED: CEPH500C2 PO (12:57)
--- NOTE | 2019-02-02 15:00 | NUR ---
RN NOTE PT DISCHARGED HOME WITH SON URBANO, , IN STABLE CONDITION, REFUSED PNA/FLU VACCINE, PAM IV PICCLINE INTACT, IN PLACE. REQUESTED FROM HOSPITALIST AND DR SULLIVAN IV DIURETICS TO BE SET UP WITH HOME HEALTH, BUT DID NOT WANT TO WAIT FOR IT TO BE ARRANGED BY OUR LANDSCAPE CREW MEMBER. THE PT TOLD THE RN THAT "REGARDLESS ARRANGED NOW OR NOT SHE CANNOT WAIT, AND WILL FOLLOW UP WITH DR SULLIVAN ON MONDAY." EXIT CARE DONE, DISCHARGE INSTRUCTIONS GIVEN, TEACHINGS DONE, PT VERBALIZED UNDERSTANDING. PAPERS SIGNED AND COPIES LEFT IN THE CHART. [facility], 1230 PM. BELONGINGS LIST SIGNED AND BELONGINGS PROVIDED TO PT.
== END 2019-02-02 14:50 | disposition home or self-care (01) | DRG 291 ==
LOC: ER 11:15 → TELE1 13:44 → MEDSG1 02-01 18:14
PROVIDERS: ADMIT Registered Nurse; ATTEND Registered Nurse
PROC: 02HV33Z Insertion of Infusion Device into Superior Vena Cava, Percutaneous Approach (ICD-10-PCS; principal; 2019-01-31)
DX: I13.0 Hypertensive heart and chronic kidney disease with heart failure and stage 1 through stage 4 chronic kidney disease, or unspecified chronic kidney disease (principal); N17.0 Acute kidney failure with tubular necrosis; I50.33 Acute on chronic diastolic (congestive) heart failure; N39.0 Urinary tract infection, site not specified; D68.59 Other primary thrombophilia; C85.90 Non-Hodgkin lymphoma, unspecified, unspecified site; M48.56XA Collapsed vertebra, not elsewhere classified, lumbar region, initial encounter for fracture; N28.0 Ischemia and infarction of kidney; N18.9 Chronic kidney disease, unspecified; I50.9 Heart failure, unspecified; J44.9 Chronic obstructive pulmonary disease, unspecified; K21.9 Gastro-esophageal reflux disease without esophagitis; D64.9 Anemia, unspecified; E11.22 Type 2 diabetes mellitus with diabetic chronic kidney disease; E78.5 Hyperlipidemia, unspecified; F41.9 Anxiety disorder, unspecified; I25.10 Atherosclerotic heart disease of native coronary artery without angina pectoris; Z88.5 Allergy status to narcotic agent; Z88.8 Allergy status to other drugs, medicaments and biological substances; Z79.4 Long term (current) use of insulin; Z79.899 Other long term (current) drug therapy; Z79.82 Long term (current) use of aspirin; G47.33 Obstructive sleep apnea (adult) (pediatric); B96.89 Other specified bacterial agents as the cause of diseases classified elsewhere; Z86.19 Personal history of other infectious and parasitic diseases; Z85.71 Personal history of Hodgkin lymphoma; Z92.21 Personal history of antineoplastic chemotherapy; Z90.710 Acquired absence of both cervix and uterus; Z82.49 Family history of ischemic heart disease and other diseases of the circulatory system; Z79.84 Long term (current) use of oral hypoglycemic drugs; Z68.37 Body mass index [BMI] 37.0-37.9, adult; I25.5 Ischemic cardiomyopathy; I34.0 Nonrheumatic mitral (valve) insufficiency; I48.91 Unspecified atrial fibrillation; E66.01 Morbid (severe) obesity due to excess calories
CPT/HCPCS: 36415; 71045-TC; 80048-TC; 80061-TC; 81000-TC; 82570-TC; 82962-TC; 83735-TC; 83880; 84100-TC; 84155-TC; 84300-TC; 84443-TC; 84484-TC; 85025-TC; 87081-TC; 94799-TC; 97116-TC; 97530-TC; A4216; G0378; J1815; J1940; J3490; J7030

== ENCOUNTER 2020-02-05 18:02 | Inpatient (IN) | payer MEDICARE, OTHER ==
[~2020-02-05] VITALS: Ht 152.4 cm; Wt 87.5 kg
[~2020-02-05 18:02] MED LIST changes: +CARV12.52 PO; +CEPH500C2 PO; +DILT-4 PO; -DILT240C2 PO; +TORS20TA3 PO
--- NOTE | 2020-02-05 18:20 | NUR ---
FROM HOME, C/O CHEST PAIN SINCE 1400 TODAY AND HIGH BLOOD SUGAR X2 WEEKS HAD CHEMO TX TODAY. PATIENT A/OX4, MILD SHORTNESS OF BREATH, ON ROOM AIR WITH SPO2 OF 94%. PATIENT ASSISTED TO BED, CHANGED INTO A GOWN, ATTACHED TO THE FRANCHISE FIELD CONSULTANT.
[2020-02-05] MEDS ORDERED: IV NS 0.9% 1,000 ML IV ONE (18:30)
--- NOTE | 2020-02-05 18:30 | NUR ---
EMT AT BEDSIDE FOR EKG.
--- NOTE | 2020-02-05 18:36 | NUR ---
BLOOD DRAWN FROM A PICC LINE AND SENT TO LAB.
[2020-02-05 18:41] LABS: BASOPHILS # (AUTO) 0.1 /CMM (0.0-0.2); BASOPHILS % (AUTO) 0.4 % (0.0-2.0); HEMATOCRIT 39 % (33-45); HEMOGLOBIN 12.8 g/dL (11.5-14.8); LYMPHOCYTES # (AUTO) 1.6 /CMM (0.8-4.8); LYMPHOCYTES % (AUTO) 11.1 % (20.0-44.0); MEAN CORPUSCULAR HGB CONC 33 g/dl (31.0-36.0); MEAN CORPUSCULAR VOLUME 87 fL (82-100); MONOCYTES # (AUTO) 0.1 /CMM (0.1-1.30); MONOCYTES % (AUTO) 0.8 % (2.0-12.0); NEUTROPHILS # (AUTO) 12.4 /CMM (1.8-8.9); NEUTROPHILS % (AUTO) 87.7 % (43.0-81.0); PLATELET COUNT (AUTO) 289 /CMM (150-450); RED BLOOD CELL COUNT(AUTO) 4.46 MIL/uL (4.0-5.2); WHITE BLOOD COUNT (AUTO) 14.2 K/uL (4.3-11.0)
--- NOTE | 2020-02-05 18:46 | NUR ---
SPOKE TO GRAND DAUGHTER CINDY, WOULD LIKE UPDATES ON PATIENTS STATUS. PATIENT VERBALLY AGREED TO GIVE INFORMATION.
[2020-02-05 18:50] LABS: CALCIUM, SERUM 9.5 mg/dL (8.5-10.1); CARBON DIOXIDE 25 mmol/L (21-32); CHLORIDE 98 mmol/L (98-107); CREATININE 1.5 mg/dL (0.6-1.3); GLUCOSE 319 mg/dL (74-106); SODIUM SERUM 138 mmol/L (136-145); UREA NITROGEN, BLOOD 31 mg/dL (7-18)
[2020-02-05 18:56] LABS: ALANINE AMINOTRANSFERASE 24 U/L (12-78); ALBUMIN 3.4 g/dL (3.4-5.0); ALKALINE PHOSPHATASE 85 U/L (46-116); ASPARTATE AMINOTRANSFERASE 17 U/L (15-37); BILIRUBIN,TOTAL 0.3 mg/dL (0.2-1.0); LIPASE 149 U/L (73-393); TOTAL PROTEIN, SERUM 7.5 g/dL (6.4-8.2)
[2020-02-05] MEDS ORDERED: IV PREMIX NS + 40 MEQ KCL 1,000 L IV PRN (19:00)
[2020-02-05 19:13] LABS: MAGNESIUM 2.3 mg/dL (1.8-2.4)
[2020-02-05 19:22] LABS: B-TYPE NATRIURETIC PEPTIDE 935 PG/ML (0-125)
--- NOTE | 2020-02-05 19:36 | NUR ---
PATIENT CURRENTLY USING THE COMMODE.
--- NOTE | 2020-02-05 19:37 | NUR ---
URINE AND COVID SWAB SAMPLE COLLECTED AND SENT TO THE LAB.
--- NOTE | 2020-02-05 19:37 | NUR ---
CALLED NURSING SUP FOR BED
--- NOTE | 2020-02-05 19:39 | NUR ---
DR. MILLAN SPEAKING WITH MARIANA AHMADI NP REGARDING ADMISSION
[2020-02-05] MEDS ORDERED: DEXTROSE 50%-WATER 50 ML DISP.SYRIN IV PRN (20:00)
[2020-02-05] MEDS ORDERED: IV NS 0.9% 1,000 ML IV PRN (20:00)
[2020-02-05] MEDS ORDERED: ATORVASTATIN 40 MG TABLET PO SCH (20:00)
[2020-02-05] MEDS ORDERED: DILTIAZEM HCL CD 240 MG PO PRN (20:00)
[2020-02-05] MEDS ORDERED: POTASSIUM CHLORIDE 10 MEQ/50 ML PREMIXED IVPB FOR PERIPHERAL LINE IV ONE (20:00)
[2020-02-05] MEDS ORDERED: ONDANSETRON HCL/PF 4 MG/2 ML VIAL IVP PRN (20:00)
[2020-02-05 20:01] LABS: APPEARANCE,URINE Clear (CLEAR); BILIRUBIN,URINE Negative (NEGATIVE); BLOOD, URINE Trace-intact Ery/uL (NEGATIVE); COLOR,URINE Yellow (YELLOW); KETONES,URINE Negative (NEGATIVE); LEUKOCYTE ESTERASE ,URINE Negative (NEGATIVE); NITRITE, URINE Negative (NEGATIVE); PROTEIN,URINE 100 mg/dl (NEGATIVE); UGLUCOSE 100 MG/DL mg/dL (NEGATIVE); UROBILINOGEN,URINE 0.2 EU/dL (0.2)
--- NOTE | 2020-02-05 20:28 | NUR ---
BED ASSIGNMENT ICU 259
[2020-02-05 20:33] LABS: RBC,URINE 2-3/HPF /HPF (0-2); WBC,URINE 0-2 /HPF (0-3)
[2020-02-05 20:34] LABS: BACTERIA,URINE Few /HPF (None Seen); SQUAMOUS EPITHELIAL CELL,UR Moderate /HPF (None Seen); URINE AMORPHOUS URATE Moderate /HPF (None Seen)
--- NOTE | 2020-02-05 20:40 | NUR ---
report given Adriane ESCOBAR for guillermo.
--- NOTE | 2020-02-05 21:00 | NUR ---
PATIENT TAKEN TO ASSIGNED ROOM.
[2020-02-05 21:15] VITALS: BP 175/75
[2020-02-05] MEDS: BLOOD SUGAR DIAGNOSTIC 1 EACH STRIP IN SCH ×2 (21:37→22:57)
[2020-02-05] MEDS: POTASSIUM CL. PREMIX PERIPHER. 50 ML IV SCH ×2 (21:37→22:41)
[2020-02-05] MEDS: CARVEDILOL 12.5 MG TABLET PO SCH (21:38)
[2020-02-05] MEDS: INSULIN REGULAR, HUMAN 100 UNIT/ML 3 ML VIAL SQ PRN ×2 (21:40→23:04)
[2020-02-05 21:49] LABS: CALCIUM, SERUM 9.3 mg/dL (8.5-10.1); CARBON DIOXIDE 25 mmol/L (21-32); CHLORIDE 100 mmol/L (98-107); CREATININE 1.4 mg/dL (0.6-1.3); GLUCOSE 221 mg/dL (74-106); POTASSIUM 3.3 mmol/L (3.5-5.1); SODIUM SERUM 137 mmol/L (136-145); UREA NITROGEN, BLOOD 30 mg/dL (7-18)
[2020-02-05 21:52] LABS: MAGNESIUM 2.3 mg/dL (1.8-2.4)
[2020-02-05 21:57] VITALS: BP 194/97
[2020-02-05 22:00] VITALS: BP 150/88
[2020-02-05] MEDS ORDERED: Potassium Chloride 20 MEQ in IV NS 0.9% 1,000 ML IV PRN (22:00)
--- NOTE | 2020-02-05 22:50 | NUR ---
RN NOTES ADMITTED PATIENT FROM ER VIA STRETCHER IN ROOM AIR AMBULATE TO THE BED WITH MINIMAL ASSIST. SOB PRESENT DURING EXERTION O2 2LPM VIA NC PROVIDED. PATIENT IS AOX4 VERBALIZED FEELINGS AND CONCERN. PATIENT DIAGNOSED OF DKA SECONDARY TO CHF EXACERBATION SATURATION 96%. PATIENT CONNECTED TO O2 2LPM VIA NC. STATED THAT IT FEELS MORE COMFORTABLE. PATIENT CONNECTED TO TELE MONITOR REVEALS SR WITH FIRST DEGREE AVB. IV SITE ON PAM PICC LINE PRESENT PER PATIENT SHE HAD THE PICC FOR A YEAR FLUSHED WELL WITH GOOD BLOOD RETURN RECEIVED WITH IVF NS +40 MEQ KCL @ 250 ML/HR TOLERATED WELL. INSTRUCTED DURING THE POC SUCH Q1H CHECK OF VS, Q2H ACCUCHECK AND INSULIN PER SLIDING SCALE. ORIENTED TO SURROUNDINGS. CALL LIGHT KEPT WITHIN EASY REACH. KEPT PT CLEAN AND DRY. WILL CLOSELY MONITOR.
[2020-02-05 23:00] VITALS: BP 114/49
[2020-02-05 23:46] LABS: CALCIUM, SERUM 9.2 mg/dL (8.5-10.1); CREATININE 1.3 mg/dL (0.6-1.3); MAGNESIUM 2.3 mg/dL (1.8-2.4); PHOSPHORUS 1.8 mg/dL (2.5-4.9)
[2020-02-06] VITALS (9 sets, daily range): BP systolic 122–156; BP diastolic 29–75
[2020-02-06] MEDS ORDERED: IV PREMIX NS +20MEQ KCL 1 L IV ONE (00:49)
[2020-02-06] MEDS: INSULIN REGULAR, HUMAN 100 UNIT/ML 3 ML VIAL SQ PRN (01:17)
--- NOTE | 2020-02-06 01:30 | NUR ---
RN NOTES KEH JAVA PROGRAMMING PROFESSOR ON THE FLOOR UPDATED REGARDING PATIENT CONDITION. LATEST BS 196 MG/DL WITH NEW ORDER TO CONSUME IVF 20 MEQ IN 0.9%NS AND CHANGE IT TO D5NS @ 75 ML/HR AND ACCUCHECK Q4H WITH SAME SLIDING SCALE. NOTED AND CARRIED OUT ORDER
[2020-02-06] MEDS: BLOOD SUGAR DIAGNOSTIC 1 EACH STRIP IN SCH ×4 (01:43→08:34)
[2020-02-06] MEDS ORDERED: IV D5/ 0.9% NACL 1,000 ML IV ONE (02:00)
[2020-02-06 04:38] LABS: BASOPHILS % (AUTO) 0.1 % (0.0-2.0); HEMATOCRIT 36 % (33-45); HEMOGLOBIN 11.7 g/dL (11.5-14.8); LYMPHOCYTES % (AUTO) 15.4 % (20.0-44.0); MEAN CORPUSCULAR HGB CONC 33 g/dl (31.0-36.0); MEAN CORPUSCULAR VOLUME 87 fL (82-100); MONOCYTES # (AUTO) 0.7 /CMM (0.1-1.30); MONOCYTES % (AUTO) 5.8 % (2.0-12.0); NEUTROPHILS % (AUTO) 78.7 % (43.0-81.0); PLATELET COUNT (AUTO) 263 /CMM (150-450); RED BLOOD CELL COUNT(AUTO) 4.11 MIL/uL (4.0-5.2); WHITE BLOOD COUNT (AUTO) 12.7 K/uL (4.3-11.0)
[2020-02-06 04:53] LABS: ALBUMIN 2.9 g/dL (3.4-5.0); BILIRUBIN,TOTAL 0.2 mg/dL (0.2-1.0); CREATININE 1.3 mg/dL (0.6-1.3); MAGNESIUM 2.2 mg/dL (1.8-2.4); PHOSPHORUS 2.2 mg/dL (2.5-4.9); POTASSIUM 3.6 mmol/L (3.5-5.1); TOTAL PROTEIN, SERUM 6.3 g/dL (6.4-8.2)
[2020-02-06] MEDS ORDERED: DEXTROSE 50%-WATER 50 ML DISP.SYRIN IV PRN (05:00)
[2020-02-06] MEDS ORDERED: INSULIN REGULAR, HUMAN 100 UNIT/ML 3 ML VIAL SQ PRN (05:00)
[2020-02-06] MEDS ORDERED: INSULIN REGULAR, HUMAN 100 UNIT/ML 3 ML VIAL ONE (05:25)
[2020-02-06] MEDS ORDERED: IV D5/ 0.9% NACL 1,000 ML IV PRN (05:30)
--- NOTE | 2020-02-06 06:53 | NUR ---
RN NOTES PATIENT ASLEEP WELL ON BED. BREATHING EVEN AND UNLABORED. DENIES CHEST PAIN. LAST BS 171 MG/DL NEXT ACCU CHECK 8AM. AFEBRILE. VSS. PATIENT ASSISTED TO COMMODE. IVF D5NS @ 75 ML.HR ONGOING. LAST ANION GAP 13 AND LAST POTASSIUM TAKEN 3.6. AL NEEDS ATTENDED KEPT PT CLEAN AND DRY. CALL IGHT KEPT WITHIN EASY REACH.. WILL ENDORSE CONTINUITY OF CARE TO AM NURSE.
[2020-02-06] MEDS ORDERED: D5 NS IV ONE (07:53)
[2020-02-06] MEDS ORDERED: KCL IV ONE (07:53)
--- NOTE | 2020-02-06 08:00 | NUR ---
agricultural equipment sales engineer received pt in bed aox4 vs stable no distress noted will cont to monitor.
[2020-02-06] MEDS: CARVEDILOL 12.5 MG TABLET PO SCH (08:33)
[2020-02-06] MEDS ORDERED: BUMETANIDE (1 MG) 1 MG TABLET PO SCH (09:00)
[2020-02-06] MEDS ORDERED: PANTOPRAZOLE 40 MG VIAL IV SCH (09:00)
[2020-02-06] MEDS ORDERED: VALSARTAN 80 MG TABLET PO SCH (09:00)
[2020-02-06] MEDS ORDERED: CARVEDILOL 12.5 MG TABLET PO SCH (09:00)
[2020-02-06] MEDS ORDERED: NEUTRA PHOS 1 POWD.PACKET PO SCH (09:00)
[2020-02-06] MEDS ORDERED: ASPIRIN 81 MG TAB.CHEW PO SCH (09:00)
[2020-02-06] MEDS ORDERED: CEPHALEXIN MONOHYDRATE 500 MG CAPSULE PO SCH (09:00)
[2020-02-06] MEDS ORDERED: LINAGLIPTIN 5 MG TABLET PO SCH (09:00)
[2020-02-06] MEDS ORDERED: FOLIC ACID 1 MG TABLET PO SCH (09:00)
--- NOTE | 2020-02-06 10:30 | NUR ---
curriculum assistant principal dc orders received, dc instructions tought and provided pt has good understanding all pt needs meet pt left home w/ son via private car stable condition aox4
== END 2020-02-06 10:45 | disposition home or self-care (01) | DRG 637 ==
LOC: ER 18:06 → ICU 20:44
PROVIDERS: ADMIT Nurse Practitioner Acute Care; ATTEND Family Medicine
DX: E11.10 Type 2 diabetes mellitus with ketoacidosis without coma (principal); N17.0 Acute kidney failure with tubular necrosis; J90 Pleural effusion, not elsewhere classified; C85.90 Non-Hodgkin lymphoma, unspecified, unspecified site; I50.22 Chronic systolic (congestive) heart failure; I25.10 Atherosclerotic heart disease of native coronary artery without angina pectoris; Z98.61 Coronary angioplasty status; I11.0 Hypertensive heart disease with heart failure; I25.2 Old myocardial infarction; Z99.81 Dependence on supplemental oxygen; D64.9 Anemia, unspecified; Z87.81 Personal history of (healed) traumatic fracture; Z88.5 Allergy status to narcotic agent; Z88.8 Allergy status to other drugs, medicaments and biological substances; Z79.899 Other long term (current) drug therapy; Z79.82 Long term (current) use of aspirin; E87.6 Hypokalemia; R79.89 Other specified abnormal findings of blood chemistry; D72.829 Elevated white blood cell count, unspecified; E66.9 Obesity, unspecified; Z68.37 Body mass index [BMI] 37.0-37.9, adult; I48.91 Unspecified atrial fibrillation; Z90.710 Acquired absence of both cervix and uterus; Z79.4 Long term (current) use of insulin; E83.39 Other disorders of phosphorus metabolism; E86.1 Hypovolemia
CPT/HCPCS: 36415; 71045-TC; 80048-TC; 80053-TC; 81000-TC; 82962-TC; 83690-TC; 83735-TC; 83880; 84100-TC; 84484-TC; 85025-TC; 87081-TC; C9113; C9803-CS; G0378; J1815; J3480; J3490; J7042

== ENCOUNTER 2021-01-28 11:04 | Outpatient (CLI) | payer MEDICARE, OTHER | END 2021-01-28 23:59 | disposition home or self-care (01) | LOC: ER 11:04 | PROVIDERS: ATTEND Internal Medicine Hematology & Oncology | DX: C85.90 Non-Hodgkin lymphoma, unspecified, unspecified site (principal) ==

== ENCOUNTER 2021-03-01 08:08 | Outpatient (CLI) | payer MEDICARE, OTHER | END 2021-03-01 23:59 | disposition home or self-care (01) | LOC: EDSTATUS 08:08 → ER 08:10 → EDSTATUS 08:13 → ER 08:14 | PROVIDERS: ATTEND Internal Medicine Hematology & Oncology | DX: Z45.2 Encounter for adjustment and management of vascular access device (principal); C85.90 Non-Hodgkin lymphoma, unspecified, unspecified site ==

== ENCOUNTER 2021-03-24 08:04 | Outpatient (CLI) | payer MEDICARE, OTHER | END 2021-03-24 23:59 | disposition home or self-care (01) | LOC: ER 08:04 | PROVIDERS: ATTEND Internal Medicine Hematology & Oncology | DX: Z45.2 Encounter for adjustment and management of vascular access device (principal); C85.90 Non-Hodgkin lymphoma, unspecified, unspecified site; I51.7 Cardiomegaly; I70.0 Atherosclerosis of aorta | CPT/HCPCS: 36569; 71045; C1751 ==

== ENCOUNTER → 2021-07-29 | Outpatient (CLI) | payer MEDICARE, OTHER | END | disposition home or self-care (01) | LOC: LAB 08:24 | PROVIDERS: ATTEND Internal Medicine Hematology & Oncology | DX: Z45.2 Encounter for adjustment and management of vascular access device (principal) | CPT/HCPCS: 36569; C1751 ==

== ENCOUNTER 2021-09-01 13:40 | Emergency (ER) | payer MEDICARE, OTHER ==
[~2021-09-01] VITALS: Ht 162.6 cm; Wt 81.6 kg
[2021-09-01 17:14] VITALS: BP 145/90
== END 2021-09-01 15:45 | disposition home or self-care (01) ==
LOC: ER 13:43
DX: S02.2XXA Fracture of nasal bones, initial encounter for closed fracture (principal); S00.11XA Contusion of right eyelid and periocular area, initial encounter; E78.5 Hyperlipidemia, unspecified; I25.2 Old myocardial infarction; I11.0 Hypertensive heart disease with heart failure; I50.9 Heart failure, unspecified; E11.9 Type 2 diabetes mellitus without complications; Z85.72 Personal history of non-Hodgkin lymphomas; Z88.8 Allergy status to other drugs, medicaments and biological substances; Z79.899 Other long term (current) drug therapy; W52.XXXA Crushed, pushed or stepped on by crowd or human stampede, initial encounter; Y93.89 Activity, other specified; Y92.89 Other specified places as the place of occurrence of the external cause; Y99.8 Other external cause status
CPT/HCPCS: 70450-TC; 70486-TC

== ENCOUNTER 2021-10-06 11:39 | Inpatient (IN) | payer MEDICARE, OTHER ==
[~2021-10-06] VITALS: Ht 152.4 cm; Wt 98.9 kg
--- NOTE | 2021-10-06 11:55 | NUR ---
BIB SON C/O SOB AND BACK PAIN "DAYS AGO." ALSO HAS BILATERAL LOWER EXTREMITY SWELLING. PT REPORTS TAKING LASIX 5MG TODAY. HX OF LYMPHOMA. O2 SAT AT 95% RA UPON ARRIVAL. AAOX4, RESPIRATIONS LABORED, RR 30, PULSES 2+ BILATERALLY. SKIN IS WARM TO TOUCH. TO ER BED 8. FAMILY AT BEDSIDE. POC 100% ON 2L NL. WILL CONTINUE TO MONITOR.
--- NOTE | 2021-10-06 12:10 | NUR ---
BLOOD SAMPLE OPBTAINED AND SENT TO LAB
--- NOTE | 2021-10-06 12:15 | NUR ---
EKG BEING DONE AT BEDSIDE
--- NOTE | 2021-10-06 12:17 | NUR ---
RADIOLOGY AT BEDSIDE
[2021-10-06 12:27] LABS: BASOPHILS % (AUTO) 0.2 % (0.0-2.0); EOSINOPHILS % (AUTO) 1.1 % (0.0-6.0); HEMATOCRIT 32 % (33-45); HEMOGLOBIN 10.2 g/dL (11.5-14.8); LYMPHOCYTES # (AUTO) 2.8 K/uL (0.8-4.8); LYMPHOCYTES % (AUTO) 27.3 % (20.0-44.0); MEAN CORPUSCULAR HGB CONC 32 g/dl (31.0-36.0); MEAN CORPUSCULAR VOLUME 82 fL (82-100); MONOCYTES # (AUTO) 1.1 K/uL (0.1-1.30); MONOCYTES % (AUTO) 10.4 % (2.0-12.0); NEUTROPHILS # (AUTO) 6.2 K/uL (1.8-8.9); PLATELET COUNT (AUTO) 169 K/uL (150-450); RED BLOOD CELL COUNT(AUTO) 3.95 MIL/uL (4.0-5.2); WHITE BLOOD COUNT (AUTO) 10.3 K/uL (4.3-11.0)
[2021-10-06 12:58] LABS: CHLORIDE 107 mmol/L (98-107); POTASSIUM 4.2 mmol/L (3.5-5.1); SODIUM SERUM 143 mmol/L (136-145)
[2021-10-06] MEDS ORDERED: ASPIRIN 81 MG TAB.CHEW PO ONE (13:00)
[2021-10-06] MEDS ORDERED: FUROSEMIDE 40 MG/4 ML VIAL IV ONE (13:00)
[2021-10-06 13:13] LABS: CARBON DIOXIDE 28 mmol/L (21-32); GLUCOSE 116 mg/dL (74-106); UREA NITROGEN, BLOOD 19 mg/dL (7-18)
[2021-10-06] MEDS ORDERED: HEPARIN INFUSION/D5W 500 ML IV PRN (13:30)
--- NOTE | 2021-10-06 13:30 | NUR ---
MOVE SHEET SUBMITTED.
[2021-10-06] MEDS ORDERED: DICL100G34 TD (13:36)
[2021-10-06] MEDS ORDERED: LINA145C PO (13:36)
[2021-10-06] MEDS ORDERED: DULA1.5P SQ (13:36)
[2021-10-06] MEDS ORDERED: LORA-258 PO (13:36)
[2021-10-06] MEDS ORDERED: ASPI-1420 PO (13:36)
[2021-10-06] MEDS ORDERED: LIDO700A30 TP (13:36)
[2021-10-06] MEDS ORDERED: RITU10VI IV (13:36)
[2021-10-06] MEDS ORDERED: FURO40TA5 PO (13:36)
[2021-10-06] MEDS ORDERED: DILT-2 PO (13:36)
[2021-10-06] MEDS ORDERED: INSU100I24 SQ (13:36)
[2021-10-06] MEDS ORDERED: POTA10TA10 PO (13:36)
[2021-10-06] MEDS ORDERED: HEPARIN INFUSION/D5W 500 ML IV ONE (13:38)
[2021-10-06] MEDS ORDERED: ASPIRIN 81 MG TAB.CHEW ONE (13:39)
[2021-10-06] MEDS ORDERED: FUROSEMIDE 40 MG/4 ML VIAL ONE (13:39)
--- NOTE | 2021-10-06 13:40 | NUR ---
[facility] BED 115-1
--- NOTE | 2021-10-06 14:01 | NUR ---
called to give report, nurse busy
[2021-10-06] MEDS ORDERED: LIDOCAINE 1% INJ 50 ML MDV IJ ONE (14:13)
--- NOTE | 2021-10-06 14:54 | NUR ---
HEPARIN NOT STARTED BECAUSE APTT 170 (NORMAL RANGE IS 24-34). DR TAYLOR AND DR JAIME MADE AWARE.
--- NOTE | 2021-10-06 15:07 | NUR ---
REPORT GIVEN TO SHAWN AMES
--- NOTE | 2021-10-06 15:15 | NUR ---
LABOR LAW PROFESSOR NOTE PATIENT RECEIVED FROM ER VIA GURNEY ACCOMPANIED BY TWO ER STAFF. PATIENT IS ALERT, ORIENTED X 3, ON ROOM AIR .NOT IN ANY FORM OF DISTRESS. WITH LEFT UPPER ARM PICC LINE. WITH SIM CATHETER DRAINING TO CLEAR YELLOW URINE. SKIN ISSUES PHOTOGRAPHED AND DOCUMENTED PER HOSPITAL POLICY. SAFETY MEASURES IN PLACE, BED IS LOCKED IN LOWEST POSITION, CALL LIGHT WITHIN REACH AND 3 SIDE RAILS UP. WILL CONTINUE TO MONITOR.
[2021-10-06] MEDS ORDERED: MORPHINE SULFATE INJ 2 MG/ML DISP.SYRIN IV PRN (15:30)
[2021-10-06] MEDS ORDERED: DEXTROSE 50%-WATER 50 ML DISP.SYRIN IV PRN (15:30)
[2021-10-06] MEDS ORDERED: LORAZEPAM 1 MG TABLET PO PRN (15:30)
[2021-10-06] MEDS ORDERED: *INSULIN REGULAR(HUMULIN R)HUM 100 UNIT/ML VIAL SQ PRN (15:30)
[2021-10-06] MEDS ORDERED: Z GUARD REMEDY 4 OZ OINT TP PRN (15:30)
[2021-10-06] MEDS ORDERED: MAG HYDROX/AL HYDROX/SIMETH 30 ML UDC PO PRN (15:30)
[2021-10-06] MEDS ORDERED: ATORVASTATIN 40 MG TABLET PO SCH (15:30)
[2021-10-06] MEDS ORDERED: ONDANSETRON HCL/PF 4 MG/2 ML VIAL IVP PRN (15:30)
[2021-10-06] MEDS ORDERED: MAGNESIUM HYDROXIDE 30 ML UDC PO PRN (15:30)
[2021-10-06] MEDS ORDERED: ZOLPIDEM TARTRATE 5 MG TABLET PO PRN (15:30)
[2021-10-06] MEDS ORDERED: INSULIN REGULAR, HUMAN 100 UNIT/ML 3 ML VIAL SQ PRN (15:30)
[2021-10-06] MEDS ORDERED: ENOXAPARIN SODIUM 100 MG/ML DISP.SYRIN SQ SCH (16:00)
[2021-10-06] MEDS ORDERED: FUROSEMIDE 40 MG TABLET PO SCH (17:00)
--- NOTE | 2021-10-06 17:00 | NUR ---
RN NOTE TROPONIN VALUE AT 154, DR. JAIME INFORMED. NO FURTHER ACTION.
[2021-10-06] MEDS: CARVEDILOL 12.5 MG TABLET PO SCH (17:09)
[2021-10-06] MEDS: BLOOD SUGAR DIAGNOSTIC 1 EACH STRIP VI SCH ×2 (17:32→22:20)
[2021-10-06 18:20] VITALS: BP 139/49
[2021-10-06] MEDS: ACETAMINOPHEN 325 MG TABLET PO PRN (18:38)
--- NOTE | 2021-10-06 19:02 | NUR ---
RN CLOSING NOTE PATIENT IS STABLE THROUGHOUT SHIFT. COMPLAINED OF BACK PAIN AND TYLENOL GIVEN PRN. ON O2 VIA NASAL CANNULA AT 2L/MIN, SATURATION AT 98%. NOT IN ANY FORM OF DISTRESS. ALL HOSPITAL SAFETY MEASURES IN PLACE. WILL ENDORSE TO ANIMAL CARE PROVIDER NURSE.
[2021-10-06 20:00] VITALS: BP 103/57
--- NOTE | 2021-10-06 21:10 | NUR ---
RN NOTE INFORMED DR. DOWNING PATIENT WAS ADMITTED TODAY FOR NSTEMI, ELEVATED TROPONINS. ER MD ORDERED HEPARIN GTTN BUT PTT 170. PATIENT IS NOW ON LOVENOX, CONCERN IF SHE WOULD LIKE TO DRAW ANOTHER PTT NOW? PER DR. DOWNING NO NEW ORDERS.
[2021-10-07] VITALS: BP 113/62
[2021-10-07] MEDS: ACETAMINOPHEN 325 MG TABLET PO PRN (02:53)
[2021-10-07 04:00] VITALS: BP 100/50
--- NOTE | 2021-10-07 06:12 | NUR ---
RN CLOSING NOTE PATIENT RESTING IN BED. A/OX3. ON 3.5L O2. PATIENT HAS POSITIONAL SOB. COMPLAINS OF PAIN, TYLENOL GIVENX1. CONTROLLED AFIB ON THE MONITOR. IN AND OUT OF SINUS RHYTHM. BLOOD SUGAR MONITORED. SIM PRESENT, DRAINING TO GRAVITY. BED IS LOW AND LOCKED, HOB ELEVATED IN SEMI FOWLERS, SIDE RAILS UPX2. CALL LIGHT WITHIN REACH.
[2021-10-07 06:48] LABS: BASOPHILS % (AUTO) 0.4 % (0.0-2.0); EOSINOPHILS % (AUTO) 1.5 % (0.0-6.0); HEMATOCRIT 29 % (33-45); HEMOGLOBIN 9.3 g/dL (11.5-14.8); LYMPHOCYTES # (AUTO) 1.6 K/uL (0.8-4.8); MEAN CORPUSCULAR HGB CONC 33 g/dl (31.0-36.0); MEAN CORPUSCULAR VOLUME 82 fL (82-100); MONOCYTES # (AUTO) 0.8 K/uL (0.1-1.30); MONOCYTES % (AUTO) 12.3 % (2.0-12.0); NEUTROPHILS # (AUTO) 4.2 K/uL (1.8-8.9); NEUTROPHILS % (AUTO) 61.8 % (43.0-81.0); PLATELET COUNT (AUTO) 140 K/uL (150-450); RED BLOOD CELL COUNT(AUTO) 3.49 MIL/uL (4.0-5.2); WHITE BLOOD COUNT (AUTO) 6.7 K/uL (4.3-11.0)
[2021-10-07 07:23] LABS: CALCIUM, SERUM 8.7 mg/dL (8.5-10.1); CARBON DIOXIDE 32 mmol/L (21-32); CHLORIDE 107 mmol/L (98-107); CREATININE 1.1 mg/dL (0.6-1.3); GLUCOSE 94 mg/dL (74-106); MAGNESIUM 2.1 mg/dL (1.8-2.4); PHOSPHORUS 4.1 mg/dL (2.5-4.9); POTASSIUM 3.8 mmol/L (3.5-5.1); SODIUM SERUM 145 mmol/L (136-145); UREA NITROGEN, BLOOD 19 mg/dL (7-18)
[2021-10-07] MEDS: BLOOD SUGAR DIAGNOSTIC 1 EACH STRIP VI SCH ×2 (07:42→11:10)
[2021-10-07 08:00] VITALS: BP 127/59
[2021-10-07] MEDS: CARVEDILOL 12.5 MG TABLET PO SCH (08:26)
[2021-10-07] MEDS: DILTIAZEM HCL CD 120 MG PO SCH ×2 (08:27→09:00)
[2021-10-07] MEDS: LIDOCAINE 5% (PATCH) 1 EA PATCH TP SCH ×2 (08:28→09:00)
[2021-10-07] MEDS ORDERED: FUROSEMIDE 40 MG/4 ML VIAL IV SCH (09:00)
[2021-10-07] MEDS ORDERED: ASPIRIN EC 81 MG TABLET.DR PO SCH (09:00)
--- NOTE | 2021-10-07 09:32 | NUR ---
KALSOMINER NOTE PATIENT RECEIVED AWAKE IN BED. PATIENT IS ALERT, ORIENTED X 3, ON NC @ 3.5L. SHOWING SIGNS OF POSITIONAL SOB. WITH LEFT UPPER ARM PICC LINE SL PATENT WITH NO SIGNS OF INFILTRATION. PT ON TELE MONITOR SHOWING CONTROLLED AFIB AND SR. WITH SIM CATHETER DRAINING CLEAR YELLOW URINE. SAFETY MEASURES IN PLACE, BED IS LOCKED IN LOWEST POSITION, CALL LIGHT WITHIN REACH AND 3 SIDE RAILS UP. WILL CONTINUE TO MONITOR.
--- NOTE | 2021-10-07 09:45 | NUR ---
RN NOTES PATIENT REFUSED LIDOCAINE AND CARDIZEM MEDICATIONS. SHE SAID SHE KNOWS HER MEDICATION AND WHAT TO TAKE.
--- NOTE | 2021-10-07 10:11 | NUR ---
RT NOTE Pt refused ABG. PT on 2LPM NC, no SOB noted. RN notified. Addendum: 10/07/21 at 1011 by CATHERINE CARBAJAL RT Amended: Links added.
--- NOTE | 2021-10-07 10:30 | NUR ---
RN NOTES PT'S SON URBANO AT BEDSIDE, EXPLAINED TO HIM THAT PATIENT REFUSED TO TAKE HER CARDIZEM AND LIDOCAINE PATCH.
[2021-10-07 12:00] VITALS: BP 112/50
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
--- NOTE | 2021-10-07 16:29 | NUR ---
RN NOTES PT GOING HOME AGAINST MEDICAL ADVISE. PROVIDED DC INSTRUCTIONS, HEALTH TEACHINGS. PATIENT TO FOLLOW UP WITH PCP ARTI. PICC LINE IN PLACE, DRESSINGS CHANGED. INTACT. BELONGINGS CHECKED AND RETURNED. AGAINST MEDICAL ADVISE PAPERS SIGNED BY SON. PATIENT TO FOLLOW WITH PCP ARTI. MD AWARE, NURSING SUPERVISOR FINE GRADING AWARE, CHARGE NURSE AWARE. REFUSE PICTURES OF PHOTOS OF SKIN ISSUES. ACCOMPANIED BY SON AND KEVIN, WHEELED TO LOBBY AND WILL GO HOME VIA PRIVATE CAR NOT IN ANY DISTRESS. Addendum: 10/07/21 at 1651 by WES UNDERWOOD RN INCIDENT REPORT ON FILE Unique Id: [id number]
== END 2021-10-07 16:35 | disposition home or self-care (01) | DRG 280 ==
LOC: ER 11:46 → TELE1 14:56 → TELE-TD 15:15 → TELE1 10-07 13:18
PROVIDERS: ADMIT Internal Medicine; ATTEND Internal Medicine
DX: I13.0 Hypertensive heart and chronic kidney disease with heart failure and stage 1 through stage 4 chronic kidney disease, or unspecified chronic kidney disease (principal); I21.A1 Myocardial infarction type 2; I50.23 Acute on chronic systolic (congestive) heart failure; Z68.41 Body mass index [BMI] 40.0-44.9, adult; J96.11 Chronic respiratory failure with hypoxia; D61.818 Other pancytopenia; N18.9 Chronic kidney disease, unspecified; I25.5 Ischemic cardiomyopathy; E11.22 Type 2 diabetes mellitus with diabetic chronic kidney disease; I25.10 Atherosclerotic heart disease of native coronary artery without angina pectoris; Z95.5 Presence of coronary angioplasty implant and graft; I48.0 Paroxysmal atrial fibrillation; E66.01 Morbid (severe) obesity due to excess calories; C88.0 Waldenstrom macroglobulinemia; G47.33 Obstructive sleep apnea (adult) (pediatric); E78.5 Hyperlipidemia, unspecified; K21.9 Gastro-esophageal reflux disease without esophagitis; Z99.81 Dependence on supplemental oxygen; Z20.822 Contact with and (suspected) exposure to COVID-19
CPT/HCPCS: 36415; 71045-TC; 80048-TC; 82962-TC; 83735-TC; 83880; 84100-TC; 84484-TC; 85025-TC; 85378-TC; 85730-TC; 87081-TC; 93307-TC; 94799-TC; G0378; J1644; J1650; J1815; J1940; J3490; J7050

== ENCOUNTER 2021-10-07 16:47 | Emergency (ER) | payer MEDICARE, OTHER ==
[~2021-10-07] VITALS: Ht 162.6 cm; Wt 136.1 kg
[~2021-10-07 16:47] MED LIST changes: -ASPI-1169 PO; +ASPI-1420 PO; -BUME1TAB9 PO; -CARV12.52 PO; -CEPH500C2 PO; +DICL100G34 TD; +DILT-2 PO; -DILT-4 PO; +DULA1.5P SQ; -ESOM40CA PO; -FOLI1TAB16 PO; +FURO40TA5 PO; +INSU100I24 SQ; +LIDO700A30 TP; +LINA145C PO; +LORA-258 PO; +POTA10TA10 PO; +RITU10VI IV; -TORS20TA3 PO; -VALS160T29 PO
--- NOTE | 2021-10-07 16:47 | NUR ---
-1635- PATIENT WAS INSIDE THE CAR IN THE HOSPITAL MAIN ENTRANCE WHEN HER FAMILY NOTICED HER TO HAVE AN UPWARD ROLLING OF EYEBALL. FAMILY CALLED FOR HELP. ER STAFF AND SOME FIRE DEPARTMENT PERSONNEL HELPED EXTRACT THE PATIENT FROM CAR TO [facility]. -1636- CONTINUOUS CPR STARTED ON MOVING GURNEY TO ER HEADED BY DR GOODWIN. -1638- PATIENT ATTACHED TO LAYOUT INSPECTOR, AMBUBAGGING DONE AT 15L/MIN WITH CONTINUOUS CPR. -164- PATIENT ASYSTOLE, 1 AMP OF EPINEPHRINE GIVEN IV PUSH ON PTS LEFT PICC LINE. CONTINUOUS CPR AND AMBUBAGGING DONE -164- INTUBATION DONE BY DR GOODWIN -1646- PATIENT STILL ASYSTOLE, 1 AMP EPINEPHRINE GIVEN IV PUSH. PT'S BS-127mg/dl -1649- WITH SINUS RHYTHM, HR 147bpm, BP152/102mmHg,Sats 91%. FAMILY DECIDED TO STOP LIFE SAVING EFFORTS FOR THEIR MOM. THEY WANT TO STOP EVERYTHING. -1705- ACCOMPANIED FAMILY TO PATIENT'S ROOM TO BE WITH PATIENT. SON SUYAPA SIGNED POLST "DNR". PATIENT'S HR 34bpm, BP 167/116mmHg. -1733- TIME OF PRONOUNCED BY DR GOODWIN. FAMILY AWARE.
--- NOTE | 2021-10-07 16:50 | NUR ---
Amadou Mejía called out in Hospital Front entrance person down/NOT breathing in a car. Patient Pulled out of car into a backboard with help from the paramedics that was on the ambulance bay to drop off patients. Ms. Nichole was observed to be Pale/greyish-dusky in color . Observed NO respitations and UNRESPONSIVE. Pt in FULL arrest. Transported to Bed 5 in ER in a gurney with obstetrics and gynecology professor on top of pts chest performing CPR. Dr Suh on the bedside throughout incident from time amadou mejía was called.
[2021-10-07] MEDS ORDERED: EPINEPHRINE (1:10,000) SYRINGE 1 MG/10 ML DISP.SYRIN IVP ONE (16:52)
[2021-10-07] MEDS ORDERED: LIDOCAINE 100MG/5ML DISP SYR IV ONE (16:52)
--- NOTE | 2021-10-07 17:55 | NUR ---
[facility] CONTACTED. SPOKE TO KAREEN. PATIENT CASE # [id number].
--- NOTE | 2021-10-07 18:45 | NUR ---
CALLED ONCOLOGY CONSULTANT'S OFFICE AND SPOKE TO JEFFREY BUI. PER MS. BUI, PATIENT IS NOT A ONCOLOGY CONSULTANT'S CASE AND THERE WILL BE NO CASE #.
--- NOTE | 2021-10-07 19:20 | NUR ---
CONTACTED [facility], SPOKE TO RADHA DUENAS. PATIENT WILL BE PICKED UP IN ER IN 2 HOURS. THEY WERE INSTRUCTED TO GO TO ER BED 5. INSURANCE VERIFICATION REP MADE AWARE
--- NOTE | 2021-10-07 20:40 | NUR ---
[facility] CAME TO METEOROLOGY PROFESSOR THE BODY. PATIENT'S BODY WAS RELEASED WITH PAIR OF EARRINGS. RN SPORTS ATHLETIC TRAINER AT BEDSIDE WITNESS.
[2021-10-07 21:11] VITALS: BP 0/0
== END 2021-10-07 21:11 ==
LOC: ER 16:51
DX: I46.9 Cardiac arrest, cause unspecified (principal); I11.0 Hypertensive heart disease with heart failure; I50.9 Heart failure, unspecified; E78.5 Hyperlipidemia, unspecified; I25.2 Old myocardial infarction; E11.9 Type 2 diabetes mellitus without complications; Z88.8 Allergy status to other drugs, medicaments and biological substances; Z79.899 Other long term (current) drug therapy
CPT/HCPCS: 31500; 92950; 99285; J0171; J2001